=== PATIENT | female | born 1940 | race Caucasian/White ===

== ENCOUNTER 2017-06-23 17:15 | Emergency (ER) | payer MEDICARE, OTHER ==
--- NOTE | 2017-06-23 19:00 | PCM.SN ---
- Free Text/Narrative Note: Called for difficult IV start/lab draw. 20 Ga IV attempted in left AC, unsuccessful. 22 Ga IV inserted in right forearm with standard procedure x1 attempt, good blood return, flushed with ease 10 ml. Blood taken off IV for lab. IV secured with tegaderm/tape.
--- NOTE | 2017-06-23 20:47 | EDM.PDOC ---
ED HPI GENERAL MEDICAL PROBLEM - General Chief Complaint: Abdominal Pain Stated Complaint: [facility] Time Seen by Provider: 06/23/17 17:45 Source of Information: Reports: Family (daughter) History Limitations: Reports: Altered Mental Status (lethargic) - History of Present Illness INITIAL COMMENTS - FREE TEXT/NARRATIVE: Radha is a 77yo female brought to ED for altered mental status. Patient's daughter gives all history as patient is lethargic and obtunded. Patient came to see her daughter- flew from [place] where she lived on Saturday , 06/21/17, 2 days ago so her daughter could help take care of her. 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 Daughter thinks "ammonia levels are too high". She has "been in a coma before" when her ammonia levels were high. She has been giving her lactulose 30mg 3 times daily since arrival to [place] 2 days ago. She is having loose stools. Family is unsure of last ammonia level or last lab values prior to leaving [place]. She is not eating, she is only drinking gatorade and pedialyte. She is very weak according to her daughter. Prior to coming to [place] she was ambulatory with walker. She was 1-2 assist the day she arrived, now the last day her family has been carrying her to bathroom and for mobility as she is unable to stand or walk. Daughter denies that patient has had f/c/s. No worsening of usual abdominal distention or pain. She has loose stools, suspected from lactulose. No cough, wheezing, SOB or c/o CP. Daughter is sole anchorman now that she has arrived in [place]. Daughter reports she has had hx of TIPS procedure for liver disease. She was previously seeing GI in [place]. Daughter is unsure of the last time she has seen GI. She does not have a PCP established here in [place]. Onset: Gradual Duration: Day(s): (2) Associated Symptoms: Reports: Confusion, Loss of Appetite, Weakness. Denies: Chest Pain, Cough, Fever/Chills, Nausea/Vomiting, Shortness of Breath Left Abdomen Pain Score (Numeric/FACES): 6 - Related Data Allergies Allergy/AdvReac Type Severity Reaction Status Date / Time levofloxacin [From Levaquin] Allergy Anaphylactic Verified 06/23/17 17:20 Shock Home Meds: Home Meds Cephalexin 250 mg PO DAILY 06/23/17 [History] Ergocalciferol (Vitamin D2) [Vitamin D2] 50,000 unit PO WEEKLY 06/23/17 [History ] Furosemide 20 mg PO DAILY 06/23/17 [History] Lactulose 20 gm PO BID 06/23/17 [History] Levothyroxine 25 mcg PO DAILY 06/23/17 [History] Levothyroxine 25 mcg PO DAILY 06/23/17 [History] Magnesium 250 mg PO DAILY 06/23/17 [History] Pantoprazole Sodium 40 mg PO DAILY 06/23/17 [History] Ranitidine HCl [Ranitidine] 300 mg PO BID 06/23/17 [History] Rifaximin [Xifaxan] 550 mg PO BID 06/23/17 [History] Sucralfate [Carafate] 1 gm PO BID 06/23/17 [History] Ursodiol 250 mg PO DAILY 06/23/17 [History] Ursodiol 500 mg PO DAILY 06/23/17 [History] Past Medical History HEENT History: Reports: Impaired Vision Cardiovascular History: Reports: CAD, Heart Failure, Hypertension, Pacemaker Gastrointestinal History: Reports: Cirrhosis, Gastritis, GI Bleed 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: Psychiatric History: Reports: Depression Endocrine/Metabolic History: Reports: Diabetes, Type II Hematologic History: Reports: Anesthesia Reaction, Blood Transfusion(s) Other Hematologic History: Doesnt wake up from anesthesia - Infectious Disease History Infectious Disease History: Reports: Hepatitis C Social & Family History - Tobacco Use Smoking Status *Q: Never Smoker Second Hand Smoke Exposure: No - Caffeine Use Caffeine Use: Reports: None - Recreational Drug Use Recreational Drug Use: No ED ROS GENERAL - Review of Systems Review Of Systems: See Below Constitutional: Reports: Weakness, Fatigue, Decreased Appetite Free Text/Narrative/Comment: unable to obtain as patient is lethargic/obtuned. ED EXAM, GI/ABD - Physical Exam Exam: See Below Exam Limited By: Language Barrier (speaks niuean) General Appearance: Obtunded Eyes: Bilateral: EOMI (minimal to no scleral icterus) Ears: Normal External Exam Nose: Normal Inspection Throat/Mouth: Other (dry mucous membranes) Head: Atraumatic, Normocephalic Neck: Normal Inspection, Other (JVD with palpation of liver and RUQ) Respiratory/Chest: No Respiratory Distress, Lungs Clear, Normal Breath Sounds, Decreased Breath Sounds (bases bilat) Cardiovascular: Normal Peripheral Pulses (2+ pedal pulses bilat), Regular Rate, Rhythm GI/Abdominal Exam: Soft, Distended, Tender (mild diffuse), Hepatomegaly, Splenomegaly. No: Guarding, Rigid, Rebound (Female) Exam: Deferred Rectal (Female) Exam: Deferred Back Exam: Normal Inspection Extremities: Normal Capillary Refill, Pedal Edema (trace to 1+) Neurological: Confused, Disoriented, Slow to Respond Skin Exam: Warm, Dry, Intact EKG INTERPRETATION EKG Date: 06/23/17 (atrial rhythm, ventricular paced) Rate (Beats/Min): 78 Course - Vital Signs Last Recorded V/S: Last Vital Signs Temp 98.6 F 06/23/17 17:21 Pulse 73 06/23/17 17:21 Resp 18 06/23/17 17:21 BP 136/81 06/23/17 17:21 Pulse Ox 99 06/23/17 17:21 - Orders/Labs/Meds Orders: Active Orders 24 hr Category Date Time Status EKG Documentation Completion [RC] STAT Care 06/23/17 18:01 Active Chest 1V Frontal [CR] Routine Exams 06/23/17 18:01 Taken Head wo Cont [CT] Stat Exams 06/23/17 20:26 Taken CULTURE URINE [RM] Routine Lab 06/23/17 18:20 Received Dextrose 5%-0.9% NaCl [Dextrose 5%-Normal Saline] 1,000 Med 06/23/17 22:15 Active ml IV ASDIRECTED Medication Orders Dextrose/Sodium Chloride (Dextrose 5%-Normal Saline) 1,000 mls @ 100 mls/hr IV ASDIRECTED CHRISTIE Last Admin: 06/23/17 22:12 Dose: 100 mls/hr Labs: Laboratory Tests 06/23/17 06/23/17 06/23/17 Range/Units 18:20 18:47 18:47 WBC 2.41 L* (3.98-10.04) K/mm3 RBC 4.18 (3.98-5.22) M/mm3 Hgb 10.6 L (11.2-15.7) gm/L Hct 33.6 L (34.1-44.9) % MCV 80.4 (79.4-94.8) fl MCH 25.4 L (25.6-32.2) pg MCHC 31.5 L (32.2-35.5) g/dl RDW Std Deviation 62.4 H (36.4-46.3) fL Plt Count 74 L (182-369) K/mm3 Neut % (Auto) 39.1 (34.0-71.1) % Lymph % (Auto) 39.8 (19.3-51.7) % Cloud % (Auto) 14.9 H (4.7-12.5) % Eos % (Auto) 4.6 (0.7-5.8) Baso % (Auto) 1.2 (0.1-1.2) % Neut # (Auto) 0.94 L (1.56-6.13) K/mm3 Lymph # (Auto) 0.96 L (1.18-3.74) K/mm3 Cloud # (Auto) 0.36 (0.24-0.36) K/mm3 Eos # (Auto) 0.11 (0.04-0.36) K/mm3 Baso # (Auto) 0.03 (0.01-0.08) K/mm3 Manual Slide Review Abnormal smear Sodium 145 (136-145) mEq/L Potassium 4.4 (3.5-5.1) mEq/L Chloride 110 H (98-107) mEq/L Carbon Dioxide 22 (21-32) mEq/L Anion Gap 17.4 H (5-15) BUN 11 (7-18) mg/dL Creatinine 1.1 H (0.55-1.02) mg/dL Est Cr Clr Drug Dosing 30.28 mL/min Estimated GFR (MDRD) 48 (>60) mL/min BUN/Creatinine Ratio 10.0 L (14-18) Glucose 115 (83-115) mg/dL Calcium 8.2 L (8.5-10.1) mg/dL Magnesium (1.8-2.4) mg/dl Total Bilirubin 1.4 H (0.2-1.0) mg/dL AST 56 H (15-37) U/L ALT 26 (14-59) U/L Alkaline Phosphatase 158 H (46-116) U/L Ammonia (11-32) umol/L CK-MB (CK-2) (0-3.6) ng/ml Troponin I 0.175 H* (0.00-0.056) ng/mL C-Reactive Protein < 0.2 (<1.0) mg/dL Total Protein 6.5 (6.4-8.2) g/dl Albumin 2.6 L (3.4-5.0) g/dl Globulin 3.9 gm/dL Albumin/Globulin Ratio 0.7 L (1-2) Urine Color Yellow (Yellow) Urine Appearance Clear (Clear) Urine pH 7.0 (5.0-8.0) Ur Specific [place] 1.015 (1.005-1.030) Urine Protein Negative (Negative) Urine Glucose (UA) Negative (Negative) Urine Ketones Negative (Negative) Urine Occult Blood Negative (Negative) Urine Nitrite Negative (Negative) Urine Bilirubin Negative (Negative) Urine Urobilinogen 0.2 (0.2-1.0) Ur Leukocyte Esterase Negative (Negative) Urine RBC 0-5 (0-5) /hpf Urine WBC 0-5 (0-5) /hpf Ur Epithelial Cells 0-5 (0-5) /hpf Urine Bacteria Many H (FEW) /hpf Urine Mucus Few (FEW) /hpf 06/23/17 06/23/17 Range/Units 18:47 18:47 WBC (3.98-10.04) K/mm3 RBC (3.98-5.22) M/mm3 Hgb (11.2-15.7) gm/L Hct (34.1-44.9) % MCV (79.4-94.8) fl MCH (25.6-32.2) pg MCHC (32.2-35.5) g/dl RDW Std Deviation (36.4-46.3) fL Plt Count (182-369) K/mm3 Neut % (Auto) (34.0-71.1) % Lymph % (Auto) (19.3-51.7) % Cloud % (Auto) (4.7-12.5) % Eos % (Auto) (0.7-5.8) Baso % (Auto) (0.1-1.2) % Neut # (Auto) (1.56-6.13) K/mm3 Lymph # (Auto) (1.18-3.74) K/mm3 Cloud # (Auto) (0.24-0.36) K/mm3 Eos # (Auto) (0.04-0.36) K/mm3 Baso # (Auto) (0.01-0.08) K/mm3 Manual Slide Review Sodium (136-145) mEq/L Potassium (3.5-5.1) mEq/L Chloride (98-107) mEq/L Carbon Dioxide (21-32) mEq/L Anion Gap (5-15) BUN (7-18) mg/dL Creatinine (0.55-1.02) mg/dL Est Cr Clr Drug Dosing mL/min Estimated GFR (MDRD) (>60) mL/min BUN/Creatinine Ratio (14-18) Glucose (83-115) mg/dL Calcium (8.5-10.1) mg/dL Magnesium 1.8 (1.8-2.4) mg/dl Total Bilirubin (0.2-1.0) mg/dL AST (15-37) U/L ALT (14-59) U/L Alkaline Phosphatase (46-116) U/L Ammonia 47 H (11-32) umol/L CK-MB (CK-2) 0.7 (0-3.6) ng/ml Troponin I (0.00-0.056) ng/mL C-Reactive Protein (<1.0) mg/dL Total Protein (6.4-8.2) g/dl Albumin (3.4-5.0) g/dl Globulin gm/dL Albumin/Globulin Ratio (1-2) Urine Color (Yellow) Urine Appearance (Clear) Urine pH (5.0-8.0) Ur Specific [place] (1.005-1.030) Urine Protein (Negative) Urine Glucose (UA) (Negative) Urine Ketones (Negative) Urine Occult Blood (Negative) Urine Nitrite (Negative) Urine Bilirubin (Negative) Urine Urobilinogen (0.2-1.0) Ur Leukocyte Esterase (Negative) Urine RBC (0-5) /hpf Urine WBC (0-5) /hpf Ur Epithelial Cells (0-5) /hpf Urine Bacteria (FEW) /hpf Urine Mucus (FEW) /hpf Meds: Medications Generic Name Dose Route Start Last Admin Trade Name Freq PRN Reason Stop Dose Admin Dextrose/Sodium Chloride 1,000 mls @ 100 mls/hr 06/23/17 22:15 06/23/17 22:12 Dextrose 5%-Normal Saline IV 100 mls/hr ASDIRECTED CHRISTIE Administration - Radiology Interpretation Free Text/Narrative:: CXR obtained: no acute findings by my wet read. Head CT without contrast ordered and pending. Labs reviewed. Pancytopenic with WBC of 2.4, hgb 10.6 and plt of 74. CMP/LFT's reviewed. Ammonia elevated in the 47 Influenza screen ordered. Troponin elevated at 0.175, normal or negative CKMB. UA is negative. - Re-Assessments/Exams Free Text/Narrative Re-Assessment/Exam: 06/23/17 22:14 Patient continues to be resting comfortably with family in room. Update them on on lab values. Negative head CT. Call placed to Dr. Paulino re admission. She feels patient needs to be transferred to [place] for GI/Hepatology consult, no availablility of platelets here, MRI to r/o CVA. 06/23/17 22:26 Call placed to [facility] in [place], talked with Hospitalist, Dr. Murillo who is in agreement to accept patient for direct admit. Will arrange ambulance transfer. Departure - Departure Time of Disposition: 22:32 Disposition: DC/Tfer to Acute Hospital 02 Condition: Poor Clinical Impression: Pancytopenia Altered mental status Qualifiers: Altered mental status type: stupor Qualified Code(s): R40.1 - Stupor Cirrhosis Qualifiers: Hepatic cirrhosis type: unspecified hepatic cirrhosis Ascites presence: with ascites Qualified Code(s): K74.60 - Unspecified cirrhosis of liver - Discharge Information Referrals: PCP,None [Primary Care Provider] - Forms: ED Department Discharge - My Orders Last 24 Hours: My Active Orders 06/23/17 18:01 EKG Documentation Completion [RC] STAT Chest 1V Frontal [CR] Routine 06/23/17 18:20 CULTURE URINE [RM] Routine 06/23/17 20:26 Head wo Cont [CT] Stat 06/23/17 22:15 Dextrose 5%-0.9% NaCl [Dextrose 5%-Normal Saline] 1,000 ml IV ASDIRECTED - Assessment/Plan Last 24 Hours: My Active Orders 06/23/17 18:01 EKG Documentation Completion [RC] STAT Chest 1V Frontal [CR] Routine 06/23/17 18:20 CULTURE URINE [RM] Routine 06/23/17 20:26 Head wo Cont [CT] Stat 06/23/17 22:15 Dextrose 5%-0.9% NaCl [Dextrose 5%-Normal Saline] 1,000 ml IV ASDIRECTED
[2017-06-23] MEDS ORDERED: Dextrose 5%-0.9% NaCl 1,000 ML IV SCH (22:15)
--- NOTE | 2017-06-24 07:35 | CR ---
Chest: Portable view of the chest is obtained. Comparison: No prior study. Heart size is normal in size for portable technique. Tortuous thoracic aorta is seen. Pacemaker is present. Lungs are clear. Bony structures are grossly intact. Stent is seen overlying the liver most likely representing a stent for TIPS procedure. Impression: 1. Incidental findings. Nothing acute is seen on portable chest x-ray. Diagnostic code #2
--- NOTE | 2017-06-24 08:27 | CT ---
Head CT Technique: Multiple axial sections through the brain were obtained. Intravenous contrast was not utilized. Comparison: No prior intracranial imaging. Findings: Ventricles along with basal cisterns and sulci over the convexities are mildly prominent. Minimal areas of diminished density are noted within the periventricular white matter compatible with small vessel ischemic demyelination change. No other abnormal parenchymal densities are seen. No evidence of intracranial hemorrhage. No midline shift or mass effect is seen. Bone window settings were reviewed which show no acute calvarial abnormality. Visualized sinuses are clear. Impression: 1. Slight senescent change. 2. No acute intracranial abnormality is identified. Diagnostic code #2 I agree with preliminary report issued by [facility] ([facility] preliminary report dictated on 06/23/17, 10:00 PM Central Time)
== END 2017-06-23 23:05 ==
LOC: JD.ED 17:15
DX: K74.60 Unspecified cirrhosis of liver (principal); D61.818 Other pancytopenia; E11.9 Type 2 diabetes mellitus without complications; I11.0 Hypertensive heart disease with heart failure; I50.9 Heart failure, unspecified; Z79.899 Other long term (current) drug therapy; Z88.1 Allergy status to other antibiotic agents
CPT/HCPCS: 36415; 70450; 71045; 80053; 81001; 82140; 82553; 83735; 84484; 85025; 86140; 87086; 87804; 93005; 96360; 99285; J7042; P9612; 87088; 87186; 93010

== ENCOUNTER 2017-08-02 13:12 | Emergency (ER) | payer MEDICARE ==
[2017-08-02] MEDS ORDERED: Sodium Chloride 0.9% 10 ML Syringe FLUSH PRN (13:18)
[2017-08-02] MEDS ORDERED: Sodium Chloride 0.9% 1,000 ML IV SCH (13:30)
[2017-08-02] MEDS ORDERED: LORazepam 2 MG/ML SDV IVPUSH ONE (13:31)
--- NOTE | 2017-08-02 14:11 | CT ---
Head CT Technique: Multiple axial sections through the brain were obtained. Intravenous contrast was not utilized. Comparison: Prior head CT study of 06/23/17. Findings: Ventricles along with basal cisterns and sulci over the convexities are mildly prominent. Minimal basal ganglia calcification is seen. Minimal areas of diminished density are noted within the periventricular white matter which is compatible with small vessel ischemic demyelination change. No evidence of intracranial hemorrhage. No midline shift or mass effect is seen. Bone window settings were reviewed which shows the visualized sinuses to appear clear. No acute calvarial abnormality is seen. Sella turcica is slightly widened compatible with incidental empty sella. Impression: 1. Incidental findings. Nothing acute is appreciated on noncontrast head CT exam. No significant change is seen from previous study. Diagnostic code #2
[2017-08-02] MEDS ORDERED: Sodium Chloride 0.9% 500 ML IV ONE (15:00)
--- NOTE | 2017-08-02 15:45 | EDM.PDOC ---
ED HPI GENERAL MEDICAL PROBLEM - General Chief Complaint: Neurological Problem Stated Complaint: [facility] Time Seen by Provider: 08/02/17 13:18 Source of Information: Reports: Patient, EMS, Family History Limitations: Reports: Language Barrier - History of Present Illness INITIAL COMMENTS - FREE TEXT/NARRATIVE: The patient presents by [facility] for a seizure. She was at the mall and walking around and shopping. She felt weak and she sat down and she started to have a generalized seizure where she was rigid. She also vomited. The patient has a history of liver failure from hepatitis C from a transfusion in [place]. Her family just moved her up from [place] a few months ago. She has been taking her lactulose but she missed a dose today. Her family says she has been confused lately. She denies fever, chills, cough, congestion, runny nose, chest pain, shortness of breath, or abdominal pain. She does only speak Portuguese but her daughter and granddaughter are here and they speak good Armenian. She has never had a seizure before. Onset: Sudden Duration: Minutes: Location: Reports: Generalized Severity: Moderate Improves with: Reports: None Worsens with: Reports: None Context: Reports: Activity (She was walking around the mall) Associated Symptoms: Reports: Confusion, Nausea/Vomiting. Denies: Chest Pain, Cough, Fever/Chills, Headaches, Shortness of Breath - Related Data Allergies Allergy/AdvReac Type Severity Reaction Status Date / Time levofloxacin [From Levaquin] Allergy Anaphylactic Verified 08/02/17 13:15 Shock Home Meds: Home Meds Cephalexin 250 mg PO DAILY 06/23/17 [History] Ergocalciferol (Vitamin D2) [Vitamin D2] 50,000 unit PO WEEKLY 06/23/17 [History ] Furosemide 20 mg PO DAILY 06/23/17 [History] Lactulose 20 gm PO BID 06/23/17 [History] Levothyroxine 25 mcg PO DAILY 06/23/17 [History] Levothyroxine 25 mcg PO DAILY 06/23/17 [History] Magnesium 250 mg PO DAILY 06/23/17 [History] Pantoprazole Sodium 40 mg PO DAILY 06/23/17 [History] Ranitidine HCl [Ranitidine] 300 mg PO BID 06/23/17 [History] Rifaximin [Xifaxan] 550 mg PO BID 06/23/17 [History] Sucralfate [Carafate] 1 gm PO BID 06/23/17 [History] Ursodiol 250 mg PO DAILY 06/23/17 [History] Ursodiol 500 mg PO DAILY 06/23/17 [History] Past Medical History HEENT History: Reports: Impaired Vision Cardiovascular History: Reports: CAD, Heart Failure, Hypertension, Pacemaker Gastrointestinal History: Reports: Cirrhosis, Gastritis, 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: Psychiatric History: Reports: Depression Endocrine/Metabolic History: Reports: Diabetes, Type II Hematologic History: Reports: Anesthesia Reaction, Blood Transfusion(s) Other Hematologic History: Doesnt wake up from anesthesia - Infectious Disease History Infectious Disease History: Reports: Hepatitis C Social & Family History - Tobacco Use Smoking Status *Q: Never Smoker Second Hand Smoke Exposure: No - Caffeine Use Caffeine Use: Reports: None - Recreational Drug Use Recreational Drug Use: No ED ROS GENERAL - Review of Systems Review Of Systems: See Below Constitutional: Reports: No Symptoms HEENT: Reports: No Symptoms Respiratory: Reports: No Symptoms Cardiovascular: Reports: No Symptoms Endocrine: Reports: No Symptoms GI/Abdominal: Reports: Nausea, Vomiting. Denies: Abdominal Pain : Reports: No Symptoms Musculoskeletal: Reports: No Symptoms Skin: Reports: No Symptoms Neurological: Reports: Confusion - Physical Exam Exam: See Below Exam Limited By: No Limitations General Appearance: Alert, No Apparent Distress Ears: Normal External Exam Nose: Normal Inspection Head Exam: Atraumatic, Normocephalic Neck: Normal Inspection Respiratory/Chest: No Respiratory Distress, Lungs Clear, Normal Breath Sounds Cardiovascular: Regular Rate, Rhythm, No Edema, No Murmur GI/Abdominal: Soft, Non-Tender, No Organomegaly, No Mass Neuro Exam (Abbreviated): Alert, Oriented, No Motor/Sensory Deficits Course - Vital Signs Last Recorded V/S: Last Vital Signs Temp 96.7 F 08/02/17 13:15 Pulse 70 08/02/17 13:15 Resp 18 08/02/17 13:15 BP 98/62 08/02/17 13:15 Pulse Ox 100 08/02/17 13:15 - Orders/Labs/Meds Orders: Active Orders 24 hr Category Date Time Status Cardiac Monitoring [RC] . DIRECTED Care 08/02/17 13:18 Active Peripheral IV Care [RC] . DIRECTED Care 08/02/17 13:19 Active Sodium Chloride 0.9% [Normal Saline] 1,000 ml Med 08/02/17 13:30 Active IV ASDIRECTED Sodium Chloride 0.9% [Saline Flush] Med 08/02/17 13:18 Active 10 ml FLUSH ASDIRECTED PRN Peripheral IV Insertion Adult [OM.PC] Stat Oth 08/02/17 13:18 Ordered Medication Orders Sodium Chloride (Normal Saline) 1,000 mls @ 125 mls/hr IV ASDIRECTED CHRISTIE Last Admin: 08/02/17 13:26 Dose: 125 mls/hr Sodium Chloride (Saline Flush) 10 ml FLUSH ASDIRECTED PRN PRN Reason: Keep Vein Open Last Admin: 08/02/17 13:26 Dose: 10 ml Labs: Laboratory Tests 08/02/17 08/02/17 08/02/17 Range/Units 13:38 13:38 13:38 WBC 2.59 L (3.98-10.04) K/mm3 RBC 4.29 (3.98-5.22) M/mm3 Hgb 11.7 (11.2-15.7) gm/L Hct 36.9 (34.1-44.9) % MCV 86.0 (79.4-94.8) fl MCH 27.3 (25.6-32.2) pg MCHC 31.7 L (32.2-35.5) g/dl RDW Std Deviation 72.5 H (36.4-46.3) fL Plt Count 75 L (182-369) K/mm3 MPV TNP Neut % (Auto) 47.1 (34.0-71.1) % Lymph % (Auto) 32.4 (19.3-51.7) % [place] % (Auto) 14.7 H (4.7-12.5) % Eos % (Auto) 4.2 (0.7-5.8) Baso % (Auto) 1.2 (0.1-1.2) % Neut # (Auto) 1.22 L (1.56-6.13) K/mm3 Lymph # (Auto) 0.84 L (1.18-3.74) K/mm3 [place] # (Auto) 0.38 H (0.24-0.36) K/mm3 Eos # (Auto) 0.11 (0.04-0.36) K/mm3 Baso # (Auto) 0.03 (0.01-0.08) K/mm3 Manual Slide Review Abnormal smear Sodium 143 (136-145) mEq/L Potassium 3.4 L (3.5-5.1) mEq/L Chloride 109 H (98-107) mEq/L Carbon Dioxide 26 (21-32) mEq/L Anion Gap 11.4 (5-15) BUN 19 H (7-18) mg/dL Creatinine 1.4 H (0.55-1.02) mg/dL Est Cr Clr Drug Dosing 28.46 mL/min Estimated GFR (MDRD) 36 (>60) mL/min BUN/Creatinine Ratio 13.6 L (14-18) Glucose 170 H (83-115) mg/dL Calcium 9.5 (8.5-10.1) mg/dL Magnesium 2.1 (1.8-2.4) mg/dl Total Bilirubin 1.0 (0.2-1.0) mg/dL AST 33 (15-37) U/L ALT 19 (14-59) U/L Alkaline Phosphatase 181 H (46-116) U/L Ammonia 123 H (11-32) umol/L Total Protein 6.5 (6.4-8.2) g/dl Albumin 2.6 L (3.4-5.0) g/dl Globulin 3.9 gm/dL Albumin/Globulin Ratio 0.7 L (1-2) Meds: Medications Generic Name Dose Route Start Last Admin Trade Name Freq PRN Reason Stop Dose Admin Sodium Chloride 1,000 mls @ 125 mls/hr 08/02/17 13:30 08/02/17 13:26 Normal Saline IV 125 mls/hr ASDIRECTED CHRISTIE Administration Sodium Chloride 10 ml 08/02/17 13:18 08/02/17 13:26 Saline Flush FLUSH 10 ml ASDIRECTED PRN Administration Keep Vein Open Discontinued Medications Generic Name Dose Route Start Last Admin Trade Name Freq PRN Reason Stop Dose Admin Sodium Chloride 500 mls @ 999 mls/hr 08/02/17 15:00 Normal Saline IV 08/02/17 15:30 .BOLUS ONE Lorazepam 0.5 mg 08/02/17 13:31 08/02/17 13:39 Ativan IVPUSH 08/02/17 13:32 0.5 mg ONETIME ONE Administration - Re-Assessments/Exams Free Text/Narrative Re-Assessment/Exam: 08/02/17 16:04 I ordered an IV NS at 125mL/hr, ativan 1mg IV, labs, and a CT of her head. The CT of her head shows incidental findings. Nothing acute is appreciated on noncontrast head CT exam. No significant change is seen from previous study. 08/02/17 16:07 Her WBC is low at 2.59. Her platelets are low at 75. Her K is a little low at 3.4. Her creatinine is elevated at 1.4. Her glucose is elevated at 170. 08/02/17 16:10 Her Alk Phos is elevated at 181. Her AST was normal at 33. Her ALT was normal at 19. Her ammonia level was elevated at 123. The last time it was 45. I feel she needs to be admitted. I called Dr Paulino and she did not want to take her because of the seizure with the high ammonia level. I called [facility] and talked with Dr Armstrong and he agreed to the transfer. Departure - Departure Time of Disposition: 16:20 Disposition: DC/Tfer to [facility] 02 Condition: Serious Clinical Impression: Seizure, Thrombocytopenia, Hyperammonemia Altered mental status Qualifiers: Altered mental status type: stupor Qualified Code(s): R40.1 - Stupor Cirrhosis Qualifiers: Hepatic cirrhosis type: unspecified hepatic cirrhosis Ascites presence: with ascites Qualified Code(s): K74.60 - Unspecified cirrhosis of liver Hepatitis C Qualifiers: Viral hepatitis chronicity: chronic Hepatic coma status: without hepatic coma Qualified Code(s): B18.2 - Chronic viral hepatitis C Liver failure Qualifiers: Liver failure chronicity: chronic Hepatic coma status: without hepatic coma Qualified Code(s): K72.10 - Chronic hepatic failure without coma Anemia Qualifiers: Anemia type: unspecified type Qualified Code(s): D64.9 - Anemia, unspecified - Discharge Information Referrals: PCP,None [Primary Care Provider] - Forms: ED Department Discharge - My Orders Last 24 Hours: My Active Orders 08/02/17 13:18 Cardiac Monitoring [RC] . DIRECTED Sodium Chloride 0.9% [Saline Flush] 10 ml FLUSH ASDIRECTED PRN Peripheral IV Insertion Adult [OM.PC] Stat 08/02/17 13:19 Peripheral IV Care [RC] . DIRECTED 08/02/17 13:30 Sodium Chloride 0.9% [Normal Saline] 1,000 ml IV ASDIRECTED - Assessment/Plan Last 24 Hours: My Active Orders 08/02/17 13:18 Cardiac Monitoring [RC] . DIRECTED Sodium Chloride 0.9% [Saline Flush] 10 ml FLUSH ASDIRECTED PRN Peripheral IV Insertion Adult [OM.PC] Stat 08/02/17 13:19 Peripheral IV Care [RC] . DIRECTED 08/02/17 13:30 Sodium Chloride 0.9% [Normal Saline] 1,000 ml IV ASDIRECTED
== END 2017-08-02 17:00 ==
LOC: JD.ED 13:12
DX: R56.9 Unspecified convulsions (principal); D69.6 Thrombocytopenia, unspecified; E72.20 Disorder of urea cycle metabolism, unspecified; K72.10 Chronic hepatic failure without coma; K74.60 Unspecified cirrhosis of liver; B18.2 Chronic viral hepatitis C; D64.9 Anemia, unspecified; I11.0 Hypertensive heart disease with heart failure; I50.9 Heart failure, unspecified; I25.10 Atherosclerotic heart disease of native coronary artery without angina pectoris; E11.9 Type 2 diabetes mellitus without complications; F32.9 Major depressive disorder, single episode, unspecified; Z79.2 Long term (current) use of antibiotics; Z79.899 Other long term (current) drug therapy; Z88.1 Allergy status to other antibiotic agents
CPT/HCPCS: 36415; 70450; 80053; 82140; 83735; 85025; 96374; 99285; J2060; J7040; J7050

== ENCOUNTER 2017-08-14 04:11 | Emergency (ER) | payer MEDICARE, MEDICAID ==
--- NOTE | 2017-08-14 04:54 | EDM.PDOC ---
<Keshav Rodas - Last Filed: 08/14/17 08:12> ED HPI GENERAL MEDICAL PROBLEM - General Chief Complaint: General Stated Complaint: AMONIA LEVEL REALLY HIGH CONFUSED Time Seen by Provider: 08/14/17 04:54 - History of Present Illness INITIAL COMMENTS - FREE TEXT/NARRATIVE: 77-year-old female presents emergency room with increased confusion. Patient is brought in by her daughter with confusion noted early this morning. The patient was found walking around the house with no pants on and she tried to put 2 depends on. The patient usually demonstrates unusual behavior when ammonia is high. 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 The patient has not had any recent fevers or chills no cough no upper airway congestion and hasn't complained of any pain anywhere. - Related Data Allergies Allergy/AdvReac Type Severity Reaction Status Date / Time levofloxacin [From Levaquin] Allergy Anaphylactic Verified 08/14/17 04:21 Shock Home Meds: Home Meds Cephalexin 250 mg PO DAILY 06/23/17 [History] Ergocalciferol (Vitamin D2) [Vitamin D2] 50,000 unit PO WEEKLY 06/23/17 [History ] Furosemide 20 mg PO DAILY 06/23/17 [History] Lactulose 20 gm PO BID 06/23/17 [History] Levothyroxine 25 mcg PO DAILY 06/23/17 [History] Levothyroxine 25 mcg PO DAILY 06/23/17 [History] Magnesium 250 mg PO DAILY 06/23/17 [History] Pantoprazole Sodium 40 mg PO DAILY 06/23/17 [History] Ranitidine HCl [Ranitidine] 300 mg PO BID 06/23/17 [History] Rifaximin [Xifaxan] 550 mg PO BID 06/23/17 [History] Sucralfate [Carafate] 1 gm PO BID 06/23/17 [History] Ursodiol 250 mg PO DAILY 06/23/17 [History] Ursodiol 500 mg PO DAILY 06/23/17 [History] Past Medical History HEENT History: Reports: Impaired Vision Cardiovascular History: Reports: CAD, Heart Failure, Hypertension, Pacemaker Gastrointestinal History: Reports: Cirrhosis, Gastritis, GI Bleed [employer] History: Reports: Psychiatric History: Reports: Depression Endocrine/Metabolic History: Reports: Diabetes, Type II Hematologic History: Reports: Anesthesia Reaction, Blood Transfusion(s) Other Hematologic History: Doesnt wake up from anesthesia - Infectious Disease History Infectious Disease History: Reports: Hepatitis C Social & Family History - Tobacco Use Smoking Status *Q: Unknown Ever Smoked Second Hand Smoke Exposure: No - Caffeine Use Caffeine Use: Reports: None - Recreational Drug Use Recreational Drug Use: No ED ROS GENERAL - Review of Systems Review Of Systems: See Below Constitutional: Reports: No Symptoms HEENT: Reports: No Symptoms Respiratory: Reports: No Symptoms Cardiovascular: Reports: No Symptoms GI/Abdominal: Reports: No Symptoms : Reports: No Symptoms Musculoskeletal: Reports: No Symptoms Skin: Reports: No Symptoms Neurological: Reports: Confusion. Denies: Headache ED EXAM, GENERAL - Physical Exam Exam: See Below Exam Limited By: No Limitations General Appearance: Alert, No Apparent Distress, Other (The patient appears to be answering questions appropriately using her daughter as a supervisor curing room) Eye Exam: Bilateral Eye: Normal Inspection Ears: Normal External Exam, Normal Canal, Hearing Grossly Normal, Normal TMs Nose: Normal Inspection, Normal Mucosa, No Blood Throat/Mouth: Normal Inspection, Normal Gums, Normal Oropharynx, Normal Voice, No Airway Compromise Head: Atraumatic, Normocephalic Neck: Normal Inspection, Supple, Non-Tender, Full Range of Motion. No: Lymphadenopathy (L), Lymphadenopathy (R) Respiratory/Chest: No Respiratory Distress, Lungs Clear, Normal Breath Sounds Cardiovascular: Regular Rate, Rhythm, No Edema, No Murmur GI/Abdominal: Normal Bowel Sounds, Soft, Non-Tender, No Mass, Other (No obvious ascites). No: Distended, Guarding, Rigid, Rebound Back Exam: Normal Inspection. No: CVA Tenderness (L), CVA Tenderness (R) Extremities: Normal Inspection, No Pedal Edema Neurological: Alert Course - Vital Signs Last Recorded V/S: Last Vital Signs Temp 36.9 C 08/14/17 04:22 Pulse 73 08/14/17 04:22 Resp 18 08/14/17 04:22 BP 134/64 08/14/17 04:22 Pulse Ox 100 08/14/17 04:22 - Orders/Labs/Meds Orders: Active Orders 24 hr Category Date Time Status Head wo Cont [CT] Stat Exams 08/14/17 09:58 Taken Labs: Laboratory Tests 03/14/18 03/14/18 03/14/18 Range/Units 04:35 04:35 05:05 WBC 2.33 L* (3.98-10.04) K/mm3 RBC 3.93 L (3.98-5.22) M/mm3 Hgb 11.1 L (11.2-15.7) gm/L Hct 34.2 (34.1-44.9) % MCV 87.0 (79.4-94.8) fl MCH 28.2 (25.6-32.2) pg MCHC 32.5 (32.2-35.5) g/dl RDW Std Deviation 71.9 H (36.4-46.3) fL Plt Count 54 L (182-369) K/mm3 MPV 11.6 (9.4-12.3) fl Neutrophils % (Manual) 51 (40-60) % Band Neutrophils % 0 (0-10) % Lymphocytes % (Manual) 38 (20-40) % Atypical Lymphs % 0 % Monocytes % (Manual) 8 (2-10) % Eosinophils % (Manual) 3 (0.7-5.8) % Basophils % (Manual) 0 L (0.1-1.2) Platelet Estimate Decreased Plt Morphology Comment Normal Polychromasia 1+ slight Poikilocytosis 2+ moderate Anisocytosis 1+ slight Microcytosis 1+ slight Macrocytosis 1+ slight Tear Drop Cells 1+ slight Ovalocytes 1+ slight Schistocytes 1+ slight RBC Morph Comment Abnormal Sodium 143 (136-145) mEq/L Potassium 3.6 (3.5-5.1) mEq/L Chloride 111 H (98-107) mEq/L Carbon Dioxide 23 (21-32) mEq/L Anion Gap 12.6 (5-15) BUN 14 (7-18) mg/dL Creatinine 1.1 H (0.55-1.02) mg/dL Est Cr Clr Drug Dosing TNP Estimated GFR (MDRD) 48 (>60) mL/min BUN/Creatinine Ratio 12.7 L (14-18) Glucose 128 H (83-115) mg/dL Calcium 9.5 (8.5-10.1) mg/dL Total Bilirubin 1.2 H (0.2-1.0) mg/dL AST 31 (15-37) U/L ALT 17 (14-59) U/L Alkaline Phosphatase 200 H (46-116) U/L Ammonia 21 (11-32) umol/L Total Protein 6.4 (6.4-8.2) g/dl Albumin 2.6 L (3.4-5.0) g/dl Globulin 3.8 gm/dL Albumin/Globulin Ratio 0.7 L (1-2) Urine Color (Yellow) Urine Appearance (Clear) Urine pH (5.0-8.0) Ur Specific [place] (1.005-1.030) Urine Protein (Negative) Urine Glucose (UA) (Negative) Urine Ketones (Negative) Urine Occult Blood (Negative) Urine Nitrite (Negative) Urine Bilirubin (Negative) Urine Urobilinogen (0.2-1.0) Ur Leukocyte Esterase (Negative) Urine RBC (0-5) /hpf Urine WBC (0-5) /hpf Ur Epithelial Cells (0-5) /hpf Amorphous Sediment (NOT SEEN) /hpf Urine Bacteria (FEW) /hpf Urine Mucus (FEW) /hpf 08/14/17 Range/Units 08:13 WBC (3.98-10.04) K/mm3 RBC (3.98-5.22) M/mm3 Hgb (11.2-15.7) gm/L Hct (34.1-44.9) % MCV (79.4-94.8) fl MCH (25.6-32.2) pg MCHC (32.2-35.5) g/dl RDW Std Deviation (36.4-46.3) fL Plt Count (182-369) K/mm3 MPV (9.4-12.3) fl Neutrophils % (Manual) (40-60) % Band Neutrophils % (0-10) % Lymphocytes % (Manual) (20-40) % Atypical Lymphs % % Monocytes % (Manual) (2-10) % Eosinophils % (Manual) (0.7-5.8) % Basophils % (Manual) (0.1-1.2) Platelet Estimate Plt Morphology Comment Polychromasia Poikilocytosis Anisocytosis Microcytosis Macrocytosis Tear Drop Cells Ovalocytes Schistocytes RBC Morph Comment Sodium (136-145) mEq/L Potassium (3.5-5.1) mEq/L Chloride (98-107) mEq/L Carbon Dioxide (21-32) mEq/L Anion Gap (5-15) BUN (7-18) mg/dL Creatinine (0.55-1.02) mg/dL Est Cr Clr Drug Dosing Estimated GFR (MDRD) (>60) mL/min BUN/Creatinine Ratio (14-18) Glucose (83-115) mg/dL Calcium (8.5-10.1) mg/dL Total Bilirubin (0.2-1.0) mg/dL AST (15-37) U/L ALT (14-59) U/L Alkaline Phosphatase (46-116) U/L Ammonia (11-32) umol/L Total Protein (6.4-8.2) g/dl Albumin (3.4-5.0) g/dl Globulin gm/dL Albumin/Globulin Ratio (1-2) Urine Color Yellow (Yellow) Urine Appearance Clear (Clear) Urine pH 7.5 (5.0-8.0) Ur Specific [place] 1.015 (1.005-1.030) Urine Protein Negative (Negative) Urine Glucose (UA) Negative (Negative) Urine Ketones Negative (Negative) Urine Occult Blood Negative (Negative) Urine Nitrite Positive H (Negative) Urine Bilirubin Negative (Negative) Urine Urobilinogen 0.2 (0.2-1.0) Ur Leukocyte Esterase Negative (Negative) Urine RBC Not seen (0-5) /hpf Urine WBC 0-5 (0-5) /hpf Ur Epithelial Cells 0-5 (0-5) /hpf Amorphous Sediment Few H (NOT SEEN) /hpf Urine Bacteria Few (FEW) /hpf Urine Mucus Not seen (FEW) /hpf - Re-Assessments/Exams Free Text/Narrative Re-Assessment/Exam: 08/14/17 08:12 Laboratory evaluation including a ammonia level are unremarkable. We'll check a urinalysis see if this might be contributing to her symptoms she does not have fever or cough. If nothing else can be identified is suspect the cause of her unusual be behavior was related to perhaps sleepwalking or at night terror. 08/14/17 08:21 Change of shift this time further care and disposition per Dr. Vela Departure - Departure Disposition: Home, Self-Care 01 Clinical Impression: Confusion - Discharge Information Referrals: Nabila Valverde [Primary Care Provider] - Forms: ED Department Discharge Additional Instructions: 1. Follow up with Dr. Shelton as planned 2. Return to the ED for any new or worsening symptoms such as worsened confusion , weakness, fever, difficulty breathing, or any other concerning symptoms - My Orders Last 24 Hours: My Active Orders 08/14/17 09:58 Head wo Cont [CT] Stat - Assessment/Plan Last 24 Hours: My Active Orders 08/14/17 09:58 Head wo Cont [CT] Stat <Jamey Vela A - Last Filed: 08/14/17 10:31> Course - Re-Assessments/Exams Free Text/Narrative Re-Assessment/Exam: 08/14/17 10:29 Signed out to me pending UA. UA neg. Reexamined patient. Daughter concerned that she is still vaguely confused. She is however oriented to date/person/ place. States she feels fine. Denies fall, headache, chest pain, cough, fever, abd pain. Given no explanation for acute change, will further eval with CT head. On my read, CT head neg, awaiting radiology report. Daughter states patient seems to have been gradually improving and would like to go home. No definite explanation for this morning's confusion, but given benign exam, reassuring labs, and neg head CT will dc home. She already has an appointment to f/u with Dr. Shelton tomorrow. Departure - Departure Time of Disposition: 10:28
--- NOTE | 2017-08-14 10:36 | CT ---
Head CT Technique: Multiple axial sections through the brain were obtained. Intravenous contrast was not utilized. Comparison: Prior head CT exam of 08/02/17. Findings: Ventricles along the basal cisterns and sulci over the convexities are mildly prominent. Minimal areas of diminished density are noted within the periventricular white matter compatible with small vessel ischemic demyelination change. Minimal basal ganglia calcification is seen. No evidence of intracranial hemorrhage. No midline shift or mass effect is seen. Bone window settings were reviewed which shows no acute calvarial abnormality. Visualized sinuses are clear. Impression: 1. Senescent change as noted above. No acute intracranial abnormality is identified. No appreciable change is seen from prior head CT exam. Diagnostic code #2
== END 2017-08-14 10:46 | disposition home or self-care (01) ==
LOC: JD.ED 04:11
DX: R41.0 Disorientation, unspecified (principal); I11.0 Hypertensive heart disease with heart failure; I50.9 Heart failure, unspecified; E11.9 Type 2 diabetes mellitus without complications; I25.10 Atherosclerotic heart disease of native coronary artery without angina pectoris; Z79.899 Other long term (current) drug therapy; Z88.1 Allergy status to other antibiotic agents
CPT/HCPCS: 36415; 70450; 70450-26; 80053; 81001; 82140; 85025; 99284; 99285-25

== ENCOUNTER 2017-12-05 18:22 | Inpatient (IN) | payer MEDICARE, MEDICAID ==
[2017-12-05] MEDS ORDERED: Acetaminophen 325 MG Tab PO ONE (19:12)
--- NOTE | 2017-12-05 19:12 | EDM.PDOC ---
ED HPI GENERAL MEDICAL PROBLEM - General Chief Complaint: Genitourinary Problem Stated Complaint: [facility] Time Seen by Provider: 12/05/17 19:06 Source of Information: Reports: Patient History Limitations: Reports: No Limitations - History of Present Illness INITIAL COMMENTS - FREE TEXT/NARRATIVE: 77-year-old female of [place] descent presents to the ED with acute onset of fever chills and rigors. He started yesterday. Patient is nonweightbearing due to fracture left femur 2 months ago. Is wheelchair bound for the most part. She does not have a Talavera catheter in place since time of surgery. However since surgery she's had recurrent urinary tract infections. 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 Her oral intake has been extremely poor today. There's been no vomiting but she is nauseated. She has a chronic cough but it doesn't sound any worse or more productive than normal. History was obtained through interpreters and primarily a granddaughter. She they report that she was in [place] 2 weeks ago with sepsis from urinary tract origin. she has used her lactulose only once today. They vary the dosage from once to 4 times a day depending on her degree of constipation. He did eat a small meal about 2 hours ago with his stay down. Onset: Sudden Onset Date: 12/04/17 Onset Time: 12:00 Duration: Hour(s): Location: Reports: Generalized (Fever chills riders. Associated nausea without vomiting.) Quality: Reports: Ache Severity: Moderate Improves with: Reports: None (She is on oxycodone 5 mg every 8 hours for pain in her left femur. Apparently it's not uniting very well. Apparently the femur was rodded as part of the treatment plan.) Worsens with: Reports: None Context: Denies: Activity, Exercise, Lifting, Sick Contact, Trauma, Other Associated Symptoms: Reports: Cough, Fever/Chills, Headaches, Loss of Appetite, Malaise, Nausea/Vomiting, Shortness of Breath, Weakness. Denies: Confusion, Chest Pain, cough w sputum, Diaphoresis (With riders), Rash, Seizure, Syncope Treatments GREY PERCHER: Reports: Other (see below) (None.) Pelvic Pain Score (Numeric/FACES): 10 - Related Data Allergies Allergy/AdvReac Type Severity Reaction Status Date / Time levofloxacin [From Levaquin] Allergy Anaphylactic Verified 12/05/17 23:55 Shock Home Meds: Home Meds Cephalexin 250 mg PO DAILY 06/23/17 [History] Ergocalciferol (Vitamin D2) [Vitamin D2] 50,000 unit PO WEEKLY 06/23/17 [History ] Furosemide 20 mg PO DAILY 06/23/17 [History] Levothyroxine 25 mcg PO DAILY 06/23/17 [History] Magnesium 250 mg PO DAILY 06/23/17 [History] Pantoprazole Sodium 40 mg PO ACBREAKFAST 06/23/17 [History] Ranitidine HCl [Ranitidine] 300 mg PO BID 06/23/17 [History] Rifaximin [Xifaxan] 550 mg PO BID 06/23/17 [History] Sucralfate [Carafate] 1 gm PO QID PRN 06/23/17 [History] Ursodiol 250 mg PO BEDTIME 06/23/17 [History] Ursodiol 500 mg PO DAILY 06/23/17 [History] Lactulose [Constulose] 20 gm PO BID 12/05/17 [History] oxyCODONE 5 mg PO Q8HR PRN 12/05/17 [History] Past Medical History HEENT History: Reports: Impaired Vision Cardiovascular History: Reports: CAD, Heart Failure, Hypertension, Pacemaker Gastrointestinal History: Reports: Cirrhosis, Gastritis, GI Bleed Genitourinary History: Reports: UTI, 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: Psychiatric History: Reports: Depression Endocrine/Metabolic History: Reports: Diabetes, Type II Hematologic History: Reports: Anesthesia Reaction, Blood Transfusion(s) Other Hematologic History: Doesnt wake up from anesthesia - Infectious Disease History Infectious Disease History: Reports: Hepatitis C Social & Family History - Family History Family Medical History: Noncontributory - Tobacco Use Smoking Status *Q: Never Smoker - Caffeine Use Caffeine Use: Reports: None - Recreational Drug Use Recreational Drug Use: No - Living Situation & Occupation Living situation: Reports: Occupation: Retired ED ROS GENERAL - Review of Systems Review Of Systems: See Below Constitutional: Reports: Fever, Chills, Malaise, Weakness, Fatigue, Decreased Appetite, Weight Loss HEENT: Reports: Other (Having troubles with oral candidiasis.) Respiratory: Reports: Shortness of Breath, Cough. Denies: Sputum, Hemoptysis, Other Cardiovascular: Reports: Blood Pressure Problem, Lightheadedness, Other. Denies : Chest Pain, Claudication, Edema, Orthopnea (Usually runs a bit high.) Endocrine: Reports: Fatigue (She does not walk she is confined to wheelchair.) GI/Abdominal: Reports: Abdominal Pain, Anorexia, Decreased Appetite, Nausea. Denies: Hematemesis, Hematochezia, Vomiting : Reports: Dysuria, Frequency Musculoskeletal: Reports: Other (Chronic pain left femur after fracture 2 months ago.) Skin: Reports: No Symptoms Psychiatric: Reports: Confusion Hematologic/Lymphatic: Reports: No Symptoms Immunologic: Reports: No Symptoms ED EXAM, RENAL/ - Physical Exam Exam: See Below (Occasional confusion but for the most part she has been able to carry on a conversation with her family members) Exam Limited By: Other (She is very warm to palpation clinically 101) General Appearance: Lethargic, Moderate Distress (Lots of moaning and groaning.) Eye Exam: Bilateral Eye: Normal Inspection (Mild scleral icterus present.) Throat/Mouth: Other (Tongue is very parched and shrunken and erythematous. There is some suggestion of oral candidiasis although it may be dried saliva in the room her mouth and buccal mucosa.) Head: Atraumatic, Normocephalic Neck: Normal Inspection, Supple, Non-Tender, Full Range of Motion. No: Lymphadenopathy (L), Lymphadenopathy (R) Respiratory/Chest: No Respiratory Distress, Lungs Clear, Normal Breath Sounds, No Accessory Muscle Use, Chest Non-Tender, Other (Pacemaker left upper anterior chest.) Cardiovascular: Normal Peripheral Pulses, Regular Rate, Rhythm, No Edema, No Murmur, No Rub, Tachycardia (Resting heart rate of 1 12/m.) GI/Abdominal: Normal Bowel Sounds, Soft, Tender, Other (Tender right upper quadrant of the abdomen. Liver is not palpable. Is a well-healed midline surgical incision around the umbilicus and i towards the pubic symphysis. Apparently this was an exploratory for a and appendectomy. No fluid waves work and he can be detected on today's examination. ) Back Exam: CVA Tenderness (R), Decreased Range of Motion (Possibly mild tenderness in this area). No: CVA Tenderness (L) Extremities: Other (Previous rodding of her right femur done 2 months ago. Surgical wounds are healing adequately.). No: Pedal Edema Neurological: Alert, Oriented, Normal Cognition Psychiatric: Other Skin Exam: Warm, Dry (She appears ill. She is very warm to palpation), Intact, No Rash, Other (The several problems color to her skin.) EKG INTERPRETATION EKG Date: 12/05/17 Time: 19:37 Rhythm: Other Rate (Beats/Min): 100 Cogswell: LAD-Left Cogswell Deviation Course - Vital Signs Last Recorded V/S: Last Vital Signs Temp 36.2 C 12/06/17 03:14 Pulse 83 12/06/17 03:14 Resp 2 L 12/06/17 03:14 BP 111/41 L 12/06/17 03:14 Pulse Ox 97 12/06/17 03:14 - Orders/Labs/Meds Orders: Active Orders 24 hr Category Date Time Status EKG Documentation Completion [RC] STAT Care 12/05/17 19:13 Active Chest 1V Frontal [CR] Stat Exams 12/05/17 19:13 Taken CULTURE BLOOD [BC] Stat Lab 12/05/17 19:45 Received CULTURE BLOOD [BC] Stat Lab 12/05/17 20:00 Received CULTURE URINE [RM] Stat Lab 12/05/17 20:30 Received URINALYSIS W/MICROSCOPIC [UA W/MICROSCOPIC] [URIN] Stat Lab 12/05/17 20:30 Ordered Dextrose 5%-0.9% NaCl [Dextrose 5%-Normal Saline] 1,000 Med 12/05/17 19:15 Active ml IV ASDIRECTED Blood Culture x2 Reflex Set [OM.PC] Stat Oth 12/05/17 19:15 Ordered Medication Orders Enoxaparin Sodium (Lovenox) 30 mg SUBCUT Q24H CHRISTIE Dextrose/Sodium Chloride (Dextrose 5%-Normal Saline) 1,000 mls @ 150 mls/hr IV ASDIRECTED CHRISTIE Last Admin: 12/05/17 20:36 Dose: 150 mls/hr Sodium Chloride (Normal Saline) 1,000 mls @ 75 mls/hr IV ASDIRECTED CHRISTIE Last Admin: 12/06/17 06:53 Dose: 75 mls/hr Ceftriaxone Sodium 2 gm/ (Sodium Chloride) 100 mls @ 100 mls/hr IV ONETIME ONE Stop: 12/06/17 09:59 Ibuprofen (Motrin) 600 mg PO Q6H PRN PRN Reason: Pain/Fever Last Admin: 12/06/17 01:50 Dose: 600 mg Temazepam (Restoril) 7.5 mg PO BEDTIME PRN PRN Reason: Sleep Labs: Laboratory Tests 12/05/17 12/05/17 12/05/17 Range/Units 19:14 19:30 19:30 WBC 3.98 (3.98-10.04) K/mm3 RBC 3.76 L (3.98-5.22) M/mm3 Hgb 9.2 L (11.2-15.7) gm/L Hct 30.6 L (34.1-44.9) % MCV 81.4 (79.4-94.8) fl MCH 24.5 L (25.6-32.2) pg MCHC 30.1 L (32.2-35.5) g/dl RDW Std Deviation 57.4 H (36.4-46.3) fL Plt Count 81 L (182-369) K/mm3 MPV TNP Neutrophils % (Manual) 76 H (40-60) % Band Neutrophils % 0 (0-10) % Lymphocytes % (Manual) 20 (20-40) % Atypical Lymphs % 0 % Monocytes % (Manual) 3 (2-10) % Eosinophils % (Manual) 1 (0.7-5.8) % Basophils % (Manual) 0 L (0.1-1.2) Platelet Estimate Decreased Plt Morphology Comment Normal Hypochromasia 1+ slight Anisocytosis 1+ slight RBC Morph Comment Not Reportable ESR (0-20) mm/hr PT 15.1 H (9.5-12.1) SECONDS INR 1.39 APTT 31 (24-31) SECONDS Sodium (136-145) mEq/L Potassium (3.5-5.1) mEq/L Chloride (98-107) mEq/L Carbon Dioxide (21-32) mEq/L Anion Gap (5-15) BUN (7-18) mg/dL Creatinine (0.55-1.02) mg/dL Est Cr Clr Drug Dosing mL/min Estimated GFR (MDRD) (>60) mL/min BUN/Creatinine Ratio (14-18) Glucose (83-115) mg/dL Lactic Acid (0.4-2.0) mmol/L Calcium (8.5-10.1) mg/dL Magnesium (1.8-2.4) mg/dl Total Bilirubin (0.2-1.0) mg/dL AST (15-37) U/L ALT (14-59) U/L Alkaline Phosphatase (46-116) U/L Ammonia 21 (11-32) umol/L CK-MB (CK-2) (0-3.6) ng/ml Troponin I (0.00-0.056) ng/mL C-Reactive Protein (<1.0) mg/dL NT-Pro-B Natriuret Pep (0-450) pg/mL Total Protein (6.4-8.2) g/dl Albumin (3.4-5.0) g/dl Globulin gm/dL Albumin/Globulin Ratio (1-2) Urine Color (Yellow) Urine Appearance (Clear) Urine pH (5.0-8.0) Ur Specific Halls (1.005-1.030) Urine Protein (Negative) Urine Glucose (UA) (Negative) Urine Ketones (Negative) Urine Occult Blood (Negative) Urine Nitrite (Negative) Urine Bilirubin (Negative) Urine Urobilinogen (0.2-1.0) Ur Leukocyte Esterase (Negative) Urine RBC (0-5) /hpf Urine WBC (0-5) /hpf Ur Epithelial Cells (0-5) /hpf Calcium Oxalate Crystal (NONE) Urine Bacteria (FEW) /hpf Urine Mucus (FEW) /hpf 12/05/17 12/05/17 12/05/17 Range/Units 19:30 19:30 19:30 WBC (3.98-10.04) K/mm3 RBC (3.98-5.22) M/mm3 Hgb (11.2-15.7) gm/L Hct (34.1-44.9) % MCV (79.4-94.8) fl MCH (25.6-32.2) pg MCHC (32.2-35.5) g/dl RDW Std Deviation (36.4-46.3) fL Plt Count (182-369) K/mm3 MPV Neutrophils % (Manual) (40-60) % Band Neutrophils % (0-10) % Lymphocytes % (Manual) (20-40) % Atypical Lymphs % % Monocytes % (Manual) (2-10) % Eosinophils % (Manual) (0.7-5.8) % Basophils % (Manual) (0.1-1.2) Platelet Estimate Plt Morphology Comment Hypochromasia Anisocytosis RBC Morph Comment ESR 24 H (0-20) mm/hr PT (9.5-12.1) SECONDS INR APTT (24-31) SECONDS Sodium 139 (136-145) mEq/L Potassium 3.8 (3.5-5.1) mEq/L Chloride 107 (98-107) mEq/L Carbon Dioxide 25 (21-32) mEq/L Anion Gap 10.8 (5-15) BUN 9 (7-18) mg/dL Creatinine 1.2 H (0.55-1.02) mg/dL Est Cr Clr Drug Dosing 27.75 mL/min Estimated GFR (MDRD) 43 (>60) mL/min BUN/Creatinine Ratio 7.5 L (14-18) Glucose 164 H (83-115) mg/dL Lactic Acid 2.1 H (0.4-2.0) mmol/L Calcium 8.9 (8.5-10.1) mg/dL Magnesium 1.8 (1.8-2.4) mg/dl Total Bilirubin 1.1 H (0.2-1.0) mg/dL AST 33 (15-37) U/L ALT 19 (14-59) U/L Alkaline Phosphatase 219 H (46-116) U/L Ammonia (11-32) umol/L CK-MB (CK-2) (0-3.6) ng/ml Troponin I 0.135 H* (0.00-0.056) ng/mL C-Reactive Protein 1.5 H* (<1.0) mg/dL NT-Pro-B Natriuret Pep (0-450) pg/mL Total Protein 6.3 L (6.4-8.2) g/dl Albumin 2.3 L (3.4-5.0) g/dl Globulin 4.0 gm/dL Albumin/Globulin Ratio 0.6 L (1-2) Urine Color (Yellow) Urine Appearance (Clear) Urine pH (5.0-8.0) Ur Specific Halls (1.005-1.030) Urine Protein (Negative) Urine Glucose (UA) (Negative) Urine Ketones (Negative) Urine Occult Blood (Negative) Urine Nitrite (Negative) Urine Bilirubin (Negative) Urine Urobilinogen (0.2-1.0) Ur Leukocyte Esterase (Negative) Urine RBC (0-5) /hpf Urine WBC (0-5) /hpf Ur Epithelial Cells (0-5) /hpf Calcium Oxalate Crystal (NONE) Urine Bacteria (FEW) /hpf Urine Mucus (FEW) /hpf 12/05/17 12/05/17 12/05/17 Range/Units 19:30 19:30 20:30 WBC (3.98-10.04) K/mm3 RBC (3.98-5.22) M/mm3 Hgb (11.2-15.7) gm/L Hct (34.1-44.9) % MCV (79.4-94.8) fl MCH (25.6-32.2) pg MCHC (32.2-35.5) g/dl RDW Std Deviation (36.4-46.3) fL Plt Count (182-369) K/mm3 MPV Neutrophils % (Manual) (40-60) % Band Neutrophils % (0-10) % Lymphocytes % (Manual) (20-40) % Atypical Lymphs % % Monocytes % (Manual) (2-10) % Eosinophils % (Manual) (0.7-5.8) % Basophils % (Manual) (0.1-1.2) Platelet Estimate Plt Morphology Comment Hypochromasia Anisocytosis RBC Morph Comment ESR (0-20) mm/hr PT (9.5-12.1) SECONDS INR APTT (24-31) SECONDS Sodium (136-145) mEq/L Potassium (3.5-5.1) mEq/L Chloride (98-107) mEq/L Carbon Dioxide (21-32) mEq/L Anion Gap (5-15) BUN (7-18) mg/dL Creatinine (0.55-1.02) mg/dL Est Cr Clr Drug Dosing mL/min Estimated GFR (MDRD) (>60) mL/min BUN/Creatinine Ratio (14-18) Glucose (83-115) mg/dL Lactic Acid (0.4-2.0) mmol/L Calcium (8.5-10.1) mg/dL Magnesium (1.8-2.4) mg/dl Total Bilirubin (0.2-1.0) mg/dL AST (15-37) U/L ALT (14-59) U/L Alkaline Phosphatase (46-116) U/L Ammonia (11-32) umol/L CK-MB (CK-2) < 0.5 (0-3.6) ng/ml Troponin I (0.00-0.056) ng/mL C-Reactive Protein (<1.0) mg/dL NT-Pro-B Natriuret Pep 371 (0-450) pg/mL Total Protein (6.4-8.2) g/dl Albumin (3.4-5.0) g/dl Globulin gm/dL Albumin/Globulin Ratio (1-2) Urine Color Yellow (Yellow) Urine Appearance Clear (Clear) Urine pH 7.0 (5.0-8.0) Ur Specific Halls 1.020 (1.005-1.030) Urine Protein Negative (Negative) Urine Glucose (UA) Negative (Negative) Urine Ketones Trace H (Negative) Urine Occult Blood Trace-intact H (Negative) Urine Nitrite Negative (Negative) Urine Bilirubin Negative (Negative) Urine Urobilinogen 0.2 (0.2-1.0) Ur Leukocyte Esterase Trace H (Negative) Urine RBC 0-5 (0-5) /hpf Urine WBC 20-30 H (0-5) /hpf Ur Epithelial Cells 10-20 H (0-5) /hpf Calcium Oxalate Crystal Rare H (NONE) Urine Bacteria Many H (FEW) /hpf Urine Mucus Not seen (FEW) /hpf Meds: Medications Generic Name Dose Route Start Last Admin Trade Name Freq PRN Reason Stop Dose Admin Enoxaparin Sodium 30 mg 12/06/17 09:00 Lovenox SUBCUT Q24H CHRISTIE Dextrose/Sodium Chloride 1,000 mls @ 150 mls/hr 12/05/17 19:15 12/05/17 20:36 Dextrose 5%-Normal Saline IV 150 mls/hr ASDIRECTED CHRISTIE Administration Sodium Chloride 1,000 mls @ 75 mls/hr 12/06/17 00:15 12/06/17 06:53 Normal Saline IV 75 mls/hr ASDIRECTED CHRISTIE Administration Ceftriaxone Sodium 2 gm/ 100 mls @ 100 mls/hr 12/06/17 09:00 Sodium Chloride IV 12/06/17 09:59 ONETIME ONE Ibuprofen 600 mg 12/06/17 00:29 12/06/17 01:50 Motrin PO 600 mg Q6H PRN Administration Pain/Fever Temazepam 7.5 mg 12/06/17 00:31 Restoril PO BEDTIME PRN Sleep Discontinued Medications Generic Name Dose Route Start Last Admin Trade Name Star PRN Reason Stop Dose Admin Acetaminophen 650 mg 12/05/17 19:12 12/05/17 20:36 Tylenol PO 12/05/17 19:13 650 mg ONETIME ONE Administration Ceftriaxone Sodium 2 gm/ 100 mls @ 100 mls/hr 12/05/17 19:16 12/05/17 20:37 Sodium Chloride IV 12/05/17 20:15 100 mls/hr ONETIME ONE Administration - Radiology Interpretation Free Text/Narrative:: 77-year-old female [place] descent who speaks primarily Mexican was out to the ED by her daughter and granddaughters. She apparently fell in [facility] and fractured her left femur 2 months ago. Since then she has been wheelchair bound. She has developed recurrent urinary tract infection since that accident. She also has a history of cirrhosis of the liver diagnosed greater than 13 years ago. Cause is unknown but felt to be due to hepatitis C possibly from previous blood transfusions. She is therefore on lactulose usually 3 times daily. Currently she presents with fever chills and rigors that started yesterday. Associated nausea without vomiting. She has been prone to recurrent urinary tract infections. Examination shows a very fragile frail elderly lady who is deathly very warm to palpation. Lots of morning and groaning. She does not seem to understand [place] very well. She appears to be volume depleted. Tongue is shrunken and mouth is very dry. Plan septic workup to include urinalysis by catheterization and urine culture one view chest x-ray. Routine labs include blood cultures and serum ammonia. Lactic acid levels and serum magnesium. We will start IV at D5 normal saline at 150 mils per hour. Given Tylenol 650 mg once for fever relief. Family keeps Tylenol course to a minimum of less than 2 g per day due to cirrhosis. Will give Rocephin 2 g IV as soon as blood cultures and urine cultures have been obtained. - Re-Assessments/Exams Free Text/Narrative Re-Assessment/Exam: 12/05/17 20:20 chest x-ray reveals mild cardiomegaly. There is a diffuse vascular congestion pattern particularly in the right hilar area. No obvious pneumonia is evident. 12/05/17 20:43 Labs reveal a low white count at 3.98. Differential 76% neutrophils no bands. Hemoglobin is 9.2 with hematocrit of 30.6. Platelet count is 81,090 from cytopenia. PT is 15.1 with an INR of 1.39. I she is auto anticoagulated from cirrhosis. PTT is 31. Sodium is 3139 with a potassium of 3.8. Chloride is 107 with a bicarbonate 25. Anion gap is 10.8. BUNs 9 with a creatinine of 1.2. GFR is 43 i.e. stage III chronic kidney disease glucose is elevated at 164. Lactic acid slightly elevated at 2.1. Calcium was normal at 8.9. Magnesium is 1.8. Total bilirubin is 1.1 with an AST of 33 and ALT of 19. Alk phosphatase is mildly elevated at 219. Serum ammonia level is in the normal range at 21. Troponin I is elevated at 0.135. C-reactive protein is 1.5. Albumin fraction is very low at 2.3. BNP and urinalysis are pending.. Will add a CK-MB fraction to her orders. 12/05/17 20:44 Urinalysis is now available. Shows trace of occult blood. 20-30 WBCs per high-power field and 10-20 epithelial cells suggesting upper urinary tract infection. Many bacteria are noted. Urine culture has been ordered. BNP is elevated at 371. The BNP is only mildly elevated and I'm not sure counts for her current level of troponin. Therefore the possibility of a recent myocardial infarction is evident. 12/05/17 21:10 Discussed the findings with the family. Discussed CODE STATUS and they do not want anything aggressive done in terms of DO NOT RESUSCITATE DO NOT INTUBATE but do want antibiotics and medicines given. She is therefore a code level III. node CK-MB fraction is 0.5. I will discuss case with Dr. Paulino continuous mining operator hospitalist with a view to admission to the hospital. Departure - Departure Time of Disposition: 22:50 Disposition: Admitted As Inpatient 65 Condition: Serious Clinical Impression: Acute febrile illness, Upper urinary tract infection, Thrombocytopenia Cirrhosis of liver Qualifiers: Hepatic cirrhosis type: unspecified hepatic cirrhosis Ascites presence: with ascites Qualified Code(s): K74.60 - Unspecified cirrhosis of liver Anemia Qualifiers: Anemia type: unspecified type Qualified Code(s): D64.9 - Anemia, unspecified - Discharge Information - My Orders Last 24 Hours: My Active Orders 12/05/17 19:13 EKG Documentation Completion [RC] STAT Chest 1V Frontal [CR] Stat 12/05/17 19:15 Dextrose 5%-0.9% NaCl [Dextrose 5%-Normal Saline] 1,000 ml IV ASDIRECTED Blood Culture x2 Reflex Set [OM.PC] Stat 12/05/17 19:45 CULTURE BLOOD [BC] Stat 12/05/17 20:00 CULTURE BLOOD [BC] Stat 12/05/17 20:30 CULTURE URINE [RM] Stat URINALYSIS W/MICROSCOPIC [UA W/MICROSCOPIC] [URIN] Stat - Assessment/Plan Last 24 Hours: My Active Orders 12/05/17 19:13 EKG Documentation Completion [RC] STAT Chest 1V Frontal [CR] Stat 12/05/17 19:15 Dextrose 5%-0.9% NaCl [Dextrose 5%-Normal Saline] 1,000 ml IV ASDIRECTED Blood Culture x2 Reflex Set [OM.PC] Stat 12/05/17 19:45 CULTURE BLOOD [BC] Stat 12/05/17 20:00 CULTURE BLOOD [BC] Stat 12/05/17 20:30 CULTURE URINE [RM] Stat URINALYSIS W/MICROSCOPIC [UA W/MICROSCOPIC] [URIN] Stat
[2017-12-05] MEDS ORDERED: Dextrose 5%-0.9% NaCl 1,000 ML IV SCH (19:15)
[2017-12-05] MEDS ORDERED: cefTRIAXone 2 GM in Sodium Chloride 0.9% 100 ML IV ONE (19:16)
[2017-12-06] MEDS ORDERED: Temazepam 7.5 MG Cap PO PRN (00:31)
[2017-12-06] MEDS: Ibuprofen 600 MG Tab PO PRN ×4 (01:50→23:50)
[2017-12-06] MEDS: Sodium Chloride 0.9% 1,000 ML IV SCH ×2 (06:53→23:50)
--- NOTE | 2017-12-06 06:57 | PCM.HP ---
H&P History of Present Illness - General Date of Service: 12/06/17 Admit Problem/Dx: Admission Diagnosis/Problem Admission Diagnosis/Problem UTI, Urinary tract infectious disease Source of Information: Patient, Family (interpeting ), Old Records, Provider, RN , RN Notes Reviewed History Limitations: Reports: Language Barrier - History of Present Illness Initial Comments - Free Text/Narative: Radha Ramirez is a 77 yo female who primarily speaks Vietnamese who presents to our ED in the evening of 12/05/17 with complaints of fever, chills and rigors which started yesterday. She reportedly has a left femur fracture which occurred 2 months ago and is thus non-weight bearing and wheelchair bound for the most part. She does have a Talavera catheter in place since her fracture and has been prone to urinary tract infections ever since. 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 peripheral intake has been poor and she's been nauseated however she has not vomited. She has a chronic cough but it reportedly is not any worseor more productive than normal. History was obtained through interpreters and her granddaughter. She reportedly in [place] 2 weeks ago for sepsis from a urinary tract infection. Reportedly only used her lactulose once a day and she was instructed to take up to 4 times depending on her degree of constipation. She did eat a small meal prior to coming to the ED and that did stay down. in the ER template 100.3 Celsius. Pulse 110. Respirations 18. Blood pressure 1 4454. Pulse ox 100%. Labs were obtained: WBC is 3.98. RBC is low at 3.76. Hemoglobin low at 9.2. Hematocrit low at 30.6. She is normocytic. Platelets are low at 81,000. Neutrophils are elevated at 76%. There is no bandemia. PT is 15.1. INR is 1.39. APTT 31. Ammonia is 21. ESR is Sodium is 139. Potassium 3.8. Chloride 107. Carbon dioxide 25. Anion gap is good at 10.8. BUN is 9. Creatinine 1.2. EGFR is 43. Glucose is high at 164. Lactic acid is high at 2.1. Calcium is 8.9. Magnesium 1.8. Total bilirubin is high at 1.1. AST is 33, a LT is 19, alkaline phosphatase is high at 219. She was given Tylenol and started on Rocephin She was also started on D5NS at 100 mils an hour. Chest x-ray is obtained and interpreted by the ED provideras showing mild cardiomegaly. There is a diffuse vascular congestion pattern particularly the rightperihilar area. No obvious pneumonia is present. 12-lead EKG was obtained and shows a paced rhythm. She carries a history of CAD, heart failure, HTN, Pacemaker, Cirrhosis, Gastritis, GI bleeds, recurrent UTIs, Depression, Type II DM, anesthesia reactions, Hepatitis C. She was never a smoker. Her PCP is Dr. Valverde here at [facility]. Pelvic Pain Score (Numeric/FACES): 10 - Related Data Allergies/Adverse Reactions: Allergies Allergy/AdvReac Type Severity Reaction Status Date / Time levofloxacin [From Levaquin] Allergy Anaphylactic Verified 12/05/17 23:55 Shock Home Medications: Home Meds Cephalexin 250 mg PO DAILY 06/23/17 [History] Ergocalciferol (Vitamin D2) [Vitamin D2] 50,000 unit PO WEEKLY 06/23/17 [History ] Furosemide 20 mg PO DAILY 06/23/17 [History] Levothyroxine 25 mcg PO DAILY 06/23/17 [History] Magnesium 250 mg PO DAILY 06/23/17 [History] Pantoprazole Sodium 40 mg PO ACBREAKFAST 06/23/17 [History] Ranitidine HCl [Ranitidine] 300 mg PO BID 06/23/17 [History] Rifaximin [Xifaxan] 550 mg PO BID 06/23/17 [History] Sucralfate [Carafate] 1 gm PO QID PRN 06/23/17 [History] Ursodiol 250 mg PO BEDTIME 06/23/17 [History] Ursodiol 500 mg PO DAILY 06/23/17 [History] Lactulose [Constulose] 20 gm PO BID 12/05/17 [History] oxyCODONE 5 mg PO Q8HR PRN 12/05/17 [History] Past Medical History HEENT History: Reports: Impaired Vision Cardiovascular History: Reports: CAD, Heart Failure, Hypertension, Pacemaker Gastrointestinal History: Reports: Cirrhosis, Gastritis, GI Bleed Genitourinary History: Reports: UTI, 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: Psychiatric History: Reports: Depression Endocrine/Metabolic History: Reports: Diabetes, Type II Hematologic History: Reports: Anesthesia Reaction, Blood Transfusion(s) Other Hematologic History: Doesnt wake up from anesthesia - Infectious Disease History Infectious Disease History: Reports: Hepatitis C - Past Surgical History HEENT Surgical History: Reports: None Cardiovascular Surgical History: Reports: None GI Surgical History: Reports: None Female Surgical History: Reports: None Endocrine Surgical History: Reports: None Social & Family History - Family History Family Medical History: Noncontributory - Tobacco Use Smoking Status *Q: Never Smoker Second Hand Smoke Exposure: No - Caffeine Use Caffeine Use: Reports: None - Recreational Drug Use Recreational Drug Use: No - Living Situation & Occupation Living situation: Reports: Occupation: Retired H&P Review of Systems - Review of Systems: Review Of Systems: See Below General: Reports: Fever, Chills, Malaise, Weakness, Fatigue, Decreased Appetite , Weight Loss. Denies: Night Sweats HEENT: Reports: Other (has had issues with oral candidiasis recently ). Denies : Eye Pain, Sinus Congestion, Sore Throat Pulmonary: Denies: Shortness of Breath, Wheezing, Pleuritic Chest Pain, Cough, Sputum Cardiovascular: Reports: Blood Pressure Problem. Denies: Chest Pain, Palpitations, Dyspnea on Exertion, Orthopnea, Edema, Lightheadedness, Syncope Gastrointestinal: Reports: Abdominal Pain (pain in LLQ near area of hip fracture ). Denies: Constipation, Diarrhea, Nausea, Vomiting Genitourinary: Reports: No Symptoms Musculoskeletal: Reports: Leg Pain (Left femur fracture from 2 months prior - wheelchair-bound) Skin: Reports: No Symptoms Psychiatric: Reports: No Symptoms Neurological: Reports: No Symptoms Hematologic/Lymphatic: Reports: No Symptoms Immunologic: Reports: No Symptoms Review of Systems Comment:: Language line was utilized and patient had some difficulty adjusting to this. Overall her only pain was in the location of he hip fracture. 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 No: Mucosa Moist & [place] (somewhat dry ) Neck: Supple, Trachea Midline. No: JVD Lungs: Clear to Auscultation, Normal Respiratory Effort Cardiovascular: Regular Rate, Regular Rhythm, Other (Pacemaker in place in left chest ) GI/Abdominal Exam: Normal Bowel Sounds, Soft, No Distention, Tender (RUQ) (Female) Exam: Deferred Rectal (Female) Exam: Deferred Back Exam: Normal Inspection, Decreased Range of Motion Extremities: No Pedal Edema, Normal Capillary Refill, Leg Pain, Limited Range of Motion, Other (rods were placed in left femur 2 monts prior ) Peripheral Pulses: 2+: Radial (L), Radial (R), Posterior Tibial (L), Posterior Tibial (R), Dorsalis Pedis (L), Dorsalis Pedis (R) Skin: Warm, Dry, Intact Neurological: Cranial Nerves Intact (grossly ) Neuro Extensive - Mental Status: Alert, Oriented x3, Normal Mood/Affect, Normal Cognition Psychiatric: Alert, Normal Affect, Normal Mood - Patient Data Lab Results Last 24 hrs: Laboratory Results - last 24 hr 12/05/17 12/05/17 12/05/17 Range/Units 19:14 19:30 19:30 WBC 3.98 (3.98-10.04) K/mm3 RBC 3.76 L (3.98-5.22) M/mm3 Hgb 9.2 L (11.2-15.7) gm/L Hct 30.6 L (34.1-44.9) % MCV 81.4 (79.4-94.8) fl MCH 24.5 L (25.6-32.2) pg MCHC 30.1 L (32.2-35.5) g/dl RDW Std Deviation 57.4 H (36.4-46.3) fL Plt Count 81 L (182-369) K/mm3 MPV TNP Neutrophils % (Manual) 76 H (40-60) % Band Neutrophils % 0 (0-10) % Lymphocytes % (Manual) 20 (20-40) % Atypical Lymphs % 0 % Monocytes % (Manual) 3 (2-10) % Eosinophils % (Manual) 1 (0.7-5.8) % Basophils % (Manual) 0 L (0.1-1.2) Platelet Estimate Decreased Plt Morphology Comment Normal Hypochromasia 1+ slight Anisocytosis 1+ slight RBC Morph Comment Not Reportable ESR (0-20) mm/hr PT 15.1 H (9.5-12.1) SECONDS INR 1.39 APTT 31 (24-31) SECONDS Sodium (136-145) mEq/L Potassium (3.5-5.1) mEq/L Chloride (98-107) mEq/L Carbon Dioxide (21-32) mEq/L Anion Gap (5-15) BUN (7-18) mg/dL Creatinine (0.55-1.02) mg/dL Est Cr Clr Drug Dosing mL/min Estimated GFR (MDRD) (>60) mL/min BUN/Creatinine Ratio (14-18) Glucose (83-115) mg/dL Lactic Acid (0.4-2.0) mmol/L Calcium (8.5-10.1) mg/dL Magnesium (1.8-2.4) mg/dl Total Bilirubin (0.2-1.0) mg/dL AST (15-37) U/L ALT (14-59) U/L Alkaline Phosphatase (46-116) U/L Ammonia 21 (11-32) umol/L CK-MB (CK-2) (0-3.6) ng/ml Troponin I (0.00-0.056) ng/mL C-Reactive Protein (<1.0) mg/dL NT-Pro-B Natriuret Pep (0-450) pg/mL Total Protein (6.4-8.2) g/dl Albumin (3.4-5.0) g/dl Globulin gm/dL Albumin/Globulin Ratio (1-2) Urine Color (Yellow) Urine Appearance (Clear) Urine pH (5.0-8.0) Ur Specific [place] (1.005-1.030) Urine Protein (Negative) Urine Glucose (UA) (Negative) Urine Ketones (Negative) Urine Occult Blood (Negative) Urine Nitrite (Negative) Urine Bilirubin (Negative) Urine Urobilinogen (0.2-1.0) Ur Leukocyte Esterase (Negative) Urine RBC (0-5) /hpf Urine WBC (0-5) /hpf Ur Epithelial Cells (0-5) /hpf Calcium Oxalate Crystal (NONE) Urine Bacteria (FEW) /hpf Urine Mucus (FEW) /hpf 12/05/17 12/05/17 12/05/17 Range/Units 19:30 19:30 19:30 WBC (3.98-10.04) K/mm3 RBC (3.98-5.22) M/mm3 Hgb (11.2-15.7) gm/L Hct (34.1-44.9) % MCV (79.4-94.8) fl MCH (25.6-32.2) pg MCHC (32.2-35.5) g/dl RDW Std Deviation (36.4-46.3) fL Plt Count (182-369) K/mm3 MPV Neutrophils % (Manual) (40-60) % Band Neutrophils % (0-10) % Lymphocytes % (Manual) (20-40) % Atypical Lymphs % % Monocytes % (Manual) (2-10) % Eosinophils % (Manual) (0.7-5.8) % Basophils % (Manual) (0.1-1.2) Platelet Estimate Plt Morphology Comment Hypochromasia Anisocytosis RBC Morph Comment ESR 24 H (0-20) mm/hr PT (9.5-12.1) SECONDS INR APTT (24-31) SECONDS Sodium 139 (136-145) mEq/L Potassium 3.8 (3.5-5.1) mEq/L Chloride 107 (98-107) mEq/L Carbon Dioxide 25 (21-32) mEq/L Anion Gap 10.8 (5-15) BUN 9 (7-18) mg/dL Creatinine 1.2 H (0.55-1.02) mg/dL Est Cr Clr Drug Dosing 27.75 mL/min Estimated GFR (MDRD) 43 (>60) mL/min BUN/Creatinine Ratio 7.5 L (14-18) Glucose 164 H (83-115) mg/dL Lactic Acid 2.1 H (0.4-2.0) mmol/L Calcium 8.9 (8.5-10.1) mg/dL Magnesium 1.8 (1.8-2.4) mg/dl Total Bilirubin 1.1 H (0.2-1.0) mg/dL AST 33 (15-37) U/L ALT 19 (14-59) U/L Alkaline Phosphatase 219 H (46-116) U/L Ammonia (11-32) umol/L CK-MB (CK-2) (0-3.6) ng/ml Troponin I 0.135 H* (0.00-0.056) ng/mL C-Reactive Protein 1.5 H* (<1.0) mg/dL NT-Pro-B Natriuret Pep (0-450) pg/mL Total Protein 6.3 L (6.4-8.2) g/dl Albumin 2.3 L (3.4-5.0) g/dl Globulin 4.0 gm/dL Albumin/Globulin Ratio 0.6 L (1-2) Urine Color (Yellow) Urine Appearance (Clear) Urine pH (5.0-8.0) Ur Specific [place] (1.005-1.030) Urine Protein (Negative) Urine Glucose (UA) (Negative) Urine Ketones (Negative) Urine Occult Blood (Negative) Urine Nitrite (Negative) Urine Bilirubin (Negative) Urine Urobilinogen (0.2-1.0) Ur Leukocyte Esterase (Negative) Urine RBC (0-5) /hpf Urine WBC (0-5) /hpf Ur Epithelial Cells (0-5) /hpf Calcium Oxalate Crystal (NONE) Urine Bacteria (FEW) /hpf Urine Mucus (FEW) /hpf 12/05/17 12/05/17 12/05/17 Range/Units 19:30 19:30 20:30 WBC (3.98-10.04) K/mm3 RBC (3.98-5.22) M/mm3 Hgb (11.2-15.7) gm/L Hct (34.1-44.9) % MCV (79.4-94.8) fl MCH (25.6-32.2) pg MCHC (32.2-35.5) g/dl RDW Std Deviation (36.4-46.3) fL Plt Count (182-369) K/mm3 MPV Neutrophils % (Manual) (40-60) % Band Neutrophils % (0-10) % Lymphocytes % (Manual) (20-40) % Atypical Lymphs % % Monocytes % (Manual) (2-10) % Eosinophils % (Manual) (0.7-5.8) % Basophils % (Manual) (0.1-1.2) Platelet Estimate Plt Morphology Comment Hypochromasia Anisocytosis RBC Morph Comment ESR (0-20) mm/hr PT (9.5-12.1) SECONDS INR APTT (24-31) SECONDS Sodium (136-145) mEq/L Potassium (3.5-5.1) mEq/L Chloride (98-107) mEq/L Carbon Dioxide (21-32) mEq/L Anion Gap (5-15) BUN (7-18) mg/dL Creatinine (0.55-1.02) mg/dL Est Cr Clr Drug Dosing mL/min Estimated GFR (MDRD) (>60) mL/min BUN/Creatinine Ratio (14-18) Glucose (83-115) mg/dL Lactic Acid (0.4-2.0) mmol/L Calcium (8.5-10.1) mg/dL Magnesium (1.8-2.4) mg/dl Total Bilirubin (0.2-1.0) mg/dL AST (15-37) U/L ALT (14-59) U/L Alkaline Phosphatase (46-116) U/L Ammonia (11-32) umol/L CK-MB (CK-2) < 0.5 (0-3.6) ng/ml Troponin I (0.00-0.056) ng/mL C-Reactive Protein (<1.0) mg/dL NT-Pro-B Natriuret Pep 371 (0-450) pg/mL Total Protein (6.4-8.2) g/dl Albumin (3.4-5.0) g/dl Globulin gm/dL Albumin/Globulin Ratio (1-2) Urine Color Yellow (Yellow) Urine Appearance Clear (Clear) Urine pH 7.0 (5.0-8.0) Ur Specific [place] 1.020 (1.005-1.030) Urine Protein Negative (Negative) Urine Glucose (UA) Negative (Negative) Urine Ketones Trace H (Negative) Urine Occult Blood Trace-intact H (Negative) Urine Nitrite Negative (Negative) Urine Bilirubin Negative (Negative) Urine Urobilinogen 0.2 (0.2-1.0) Ur Leukocyte Esterase Trace H (Negative) Urine RBC 0-5 (0-5) /hpf Urine WBC 20-30 H (0-5) /hpf Ur Epithelial Cells 10-20 H (0-5) /hpf Calcium Oxalate Crystal Rare H (NONE) Urine Bacteria Many H (FEW) /hpf Urine Mucus Not seen (FEW) /hpf Result Diagrams: 12/06/17 13:24 12/06/17 06:10 - Problem List (1) Upper urinary tract infection SNOMED Code(s): 019385506 ICD Code: N39.0 - URINARY TRACT INFECTION, SITE NOT SPECIFIED Status: Acute Priority: High Current Visit: Yes (2) Acute febrile illness SNOMED Code(s): 553283606 ICD Code: R50.9 - FEVER, UNSPECIFIED Status: Acute Priority: High Current Visit: Yes (3) Anemia SNOMED Code(s): 322675800 ICD Code: D64.9 - ANEMIA, UNSPECIFIED Status: Acute Priority: High Current Visit: Yes Qualifiers: Anemia type: unspecified type Qualified Code(s): D64.9 - Anemia, unspecified (4) Cirrhosis SNOMED Code(s): 18423864 ICD Code: K74.60 - UNSPECIFIED CIRRHOSIS OF LIVER Status: Chronic Priority: High Current Visit: Yes Qualifiers: Hepatic cirrhosis type: unspecified hepatic cirrhosis Ascites presence: with ascites Qualified Code(s): K74.60 - Unspecified cirrhosis of liver; R18.8 - Other ascites (5) Hepatitis C SNOMED Code(s): 86702282 ICD Code: B19.20 - UNSPECIFIED VIRAL HEPATITIS C WITHOUT HEPATIC COMA Status: Chronic Priority: Medium Current Visit: Yes Qualifiers: Viral hepatitis chronicity: chronic Hepatic coma status: without hepatic coma Qualified Code(s): B18.2 - Chronic viral hepatitis C (6) Pancytopenia SNOMED Code(s): 419347367 ICD Code: D61.818 - OTHER PANCYTOPENIA Status: Chronic Priority: Medium Current Visit: Yes (7) History of hip fracture SNOMED Code(s): 844027446 ICD Code: Z87.81 - PERSONAL HISTORY OF (HEALED) TRAUMATIC FRACTURE Status: Chronic Priority: Medium Current Visit: Yes (8) Elevated troponin SNOMED Code(s): 327636686, 815777792, 626175698 ICD Code: R74.8 - ABNORMAL LEVELS OF OTHER SERUM ENZYMES Status: Chronic Priority: Medium Current Visit: Yes Problem List Initiated/Reviewed/Updated: Yes Orders Last 24hrs: Active Orders 24 hr Category Date Time Status Patient Status [ADT] Routine ADT 12/05/17 22:42 Active EKG Documentation Completion [RC] STAT Care 12/05/17 19:13 Active Consult to Case Management [CONS] Routine Cons 12/06/17 01:54 Active Clear Liquid Diet [DIET] Diet 12/06/17 Breakfast Active Chest 1V Frontal [CR] Stat Exams 12/05/17 19:13 Taken BMP [BASIC METABOLIC PANEL,BMP] [CHEM] Routine Lab 12/06/17 06:10 Received CBC WITH AUTO DIFF [HEME] Routine Lab 12/06/17 06:10 Received CRP [C-REACTIVE PROTEIN] [CHEM] Routine Lab 12/06/17 06:10 Received CULTURE BLOOD [BC] Stat Lab 12/05/17 19:45 Received CULTURE BLOOD [BC] Stat Lab 12/05/17 20:00 Received CULTURE URINE [RM] Stat Lab 12/05/17 20:30 Received LACTIC ACID [CHEM] Routine Lab 12/06/17 06:10 Received MG [MAGNESIUM] [CHEM] Routine Lab 12/06/17 06:10 Received TROPONIN I [CHEM] Routine Lab 12/06/17 06:10 Received URINALYSIS W/MICROSCOPIC [UA W/MICROSCOPIC] [URIN] Stat Lab 12/05/17 20:30 Ordered Dextrose 5%-0.9% NaCl [Dextrose 5%-Normal Saline] 1,000 Med 12/05/17 19:15 Active ml IV ASDIRECTED Enoxaparin [Lovenox] Med 12/06/17 09:00 Active 30 mg SUBCUT Q24H Ibuprofen [Motrin] Med 12/06/17 00:29 Active 600 mg PO Q6H PRN Sodium Chloride 0.9% [Normal Saline] 1,000 ml Med 12/06/17 00:15 Active IV ASDIRECTED Temazepam [Restoril] Med 12/06/17 00:31 Active 7.5 mg PO BEDTIME PRN cefTRIAXone [Rocephin] 2 gm Med 12/06/17 09:00 Active Sodium Chloride 0.9% [Normal Saline] 100 ml IV ONETIME Blood Culture x2 Reflex Set [OM.PC] Stat Oth 12/05/17 19:15 Ordered RENEE Hose [Antiembolic Hose] [OM.PC] Routine Oth 12/06/17 00:28 Ordered Medication Orders Enoxaparin Sodium (Lovenox) 30 mg SUBCUT Q24H [facility] Dextrose/Sodium Chloride (Dextrose 5%-Normal Saline) 1,000 mls @ 150 mls/hr IV ASDIRECTED [facility] Last Admin: 12/05/17 20:36 Dose: 150 mls/hr Sodium Chloride (Normal Saline) 1,000 mls @ 75 mls/hr IV ASDIRECTED [facility] Last Admin: 12/06/17 06:53 Dose: 75 mls/hr Ceftriaxone Sodium 2 gm/ (Sodium Chloride) 100 mls @ 100 mls/hr IV ONETIME ONE Stop: 12/06/17 09:59 Ibuprofen (Motrin) 600 mg PO Q6H PRN PRN Reason: Pain/Fever Last Admin: 12/06/17 01:50 Dose: 600 mg Temazepam (Restoril) 7.5 mg PO BEDTIME PRN PRN Reason: Sleep Assessment/Plan Comment:: I/P: Acute: UTI -Reports fever, chills, rigors for past day -Wheelchair bound since left femur fracture -Chronic indwelling urinary catheter -Rocephin started in ED - continue -IV fluids as ordered -UA shows trace ketones and occult blood, trace leukocyte esterase, 20-30 WBC , 10-20 epithelial cells, rare calcium oxalate crystal, many bacteria -Blood cultures - gram negative rods thus far -No leukocytosis -CRP 1.5-->1.2 -Lactic acid 2.1-->1.0 Elevated troponin, stable -Troponin 0.135-->0.138-->0.135 -CK-MB <0.5 -12-lead EKG shows paced rhythm -Denies chest pain or SOB -CXR shows Mild CHF and incidental findings -Was 0.175 on 06/23/17 at last ER visit -Appears to have chronic troponin leak Pancytopenia -Appears to be chronic condition from prior notes -Likely 2/2 chronic medical conditions -Monitor Chronic: CAD heart failure HTN Pacemaker Cirrhosis Gastritis GI bleeds Recurrent UTIs Depression Type II DM - A1C 5.5; will discontinue BS checks and novolog Anesthesia reaction Hepatitis C History of left hip fracture repaired with rods Plan: Admit to medical floor on telemetry Home medications as ordered PT/OT Routine AM labs CM/SW for discharge planning Other orders ad indicated above DVT prophylaxis: SCDs and TEDs - low platelets GI Prophylaxis: Pts. home PPI Code status: DNR/DNI; PCP: Dr. Valverde Updated daughter via telephone. She reports patient has history of Type II DM, however A1C is 5.5 and blood sugars have been stable. Family is reportedly refusing SNF placement. Due to he hip fracture and being wheelchair bound the patient would benefit from a hospital bed and standard wheelchair. She is unable to bear weight on her left leg due to the fracture and family reports the patient has had very severe reactions to anesthesia in the past which limit her ability for surgical fixation. Due to his her mobility is severely reduced. She has a very real risk of bedsores and needs frequent repositioning. She also has substantial pain from this condition. It is believed she can safely utilize the wheelchair which would increase her mobility. She will likely need these items for up to 6 months, or longer if her PCP deems necessary.
[2017-12-06] MEDS ORDERED: Sucralfate 1 GM Tab PO PRN (07:20)
[2017-12-06] MEDS ORDERED: Ondansetron 4 MG/2 ML SDV IV PRN (07:22)
[2017-12-06] MEDS ORDERED: Ondansetron 4 MG Tab.DIS PO PRN (07:22)
[2017-12-06] MEDS: Levothyroxine 25 MCG Tab PO SCH (07:32)
[2017-12-06] MEDS: Enoxaparin 30 MG/0.3 ML Syringe SUBCUT SCH ×2 (07:32→08:29)
[2017-12-06] MEDS: Rifaximin 550 MG Tab PO SCH ×2 (08:28→20:23)
[2017-12-06] MEDS: Lactulose Soln 10 GM/15 ML 30 ML UD Cup PO SCH ×2 (08:28→20:24)
[2017-12-06] MEDS: Pantoprazole 40 MG Tab.CR PO SCH (08:52)
[2017-12-06] MEDS ORDERED: LORazepam 2 MG/ML SDV IVPUSH PRN (08:55)
[2017-12-06] MEDS ORDERED: cefTRIAXone 2 GM in Sodium Chloride 0.9% 100 ML IV ONE (09:00)
--- NOTE | 2017-12-06 10:58 | CR ---
Chest: Portable view of the chest is obtained. Comparison: Prior chest x-ray of 06/23/17. Heart size slightly enlarged. Pulmonary vessels are mildly congested. Tortuous thoracic aorta is seen. Pacemaker is noted. Chronic rotator cuff tear is noted within the right shoulder. TIPS stent is noted. Embolization coils are seen. Impression: 1. Mild CHF believed to be present. 2. Other incidental findings as noted above. Diagnostic code #3
[2017-12-06] MEDS ORDERED: 50% Dextrose in Water 50 ML Syringe IVPUSH PRN (11:55)
[2017-12-06] MEDS ORDERED: Insulin Aspart 100 Units/ML 3 ML Pen SUBCUT SCH (17:00)
[2017-12-06] MEDS: oxyCODONE 5 MG Tab PO PRN (18:06)
[2017-12-06] MEDS: Gabapentin 100 MG Cap PO SCH (20:24)
[2017-12-07] MEDS: oxyCODONE 5 MG Tab PO PRN ×2 (02:13→14:15)
[2017-12-07] MEDS: Levothyroxine 25 MCG Tab PO SCH (06:15)
[2017-12-07] MEDS: Pantoprazole 40 MG Tab.CR PO SCH (06:15)
[2017-12-07] MEDS: Ibuprofen 600 MG Tab PO PRN ×3 (06:15→22:05)
[2017-12-07] MEDS: Rifaximin 550 MG Tab PO SCH ×2 (08:30→20:17)
[2017-12-07] MEDS: Lactulose Soln 10 GM/15 ML 30 ML UD Cup PO SCH ×2 (08:30→20:17)
[2017-12-07] MEDS: Gabapentin 100 MG Cap PO SCH ×2 (08:31→20:17)
[2017-12-07] MEDS: Saccharomyces Boulardii (Probiotic) 250 MG Cap PO SCH ×2 (08:33→20:17)
[2017-12-07] MEDS ORDERED: cefTRIAXone 2 GM in Sodium Chloride 0.9% 100 ML IV SCH (09:00)
[2017-12-07] MEDS ORDERED: Lactulose Soln 10 GM/15 ML 30 ML UD Cup PO ONE (11:16)
[2017-12-07] MEDS ORDERED: Furosemide 40 MG/4 ML VIAL IVPUSH SCH (11:30)
[2017-12-07] MEDS ORDERED: Sodium Chloride 0.9% 250 ML IV SCH (11:30)
[2017-12-07] MEDS ORDERED: Piperacillin/Tazobactam 4.5 GM in Sodium Chloride 0.9% 100 ML IV ONE (12:00)
[2017-12-07] MEDS: Sodium Chloride 0.9% 1,000 ML IV SCH (12:46)
--- NOTE | 2017-12-07 14:47 | PCM.PN ---
- General Info Date of Service: 12/07/17 Functional Status: Reports: Pain Controlled, Urinating - Review of Systems General: Reports: Weakness, Fatigue, Malaise HEENT: Reports: No Symptoms Pulmonary: Reports: No Symptoms Cardiovascular: Reports: No Symptoms Gastrointestinal: Reports: No Symptoms Genitourinary: Reports: No Symptoms Musculoskeletal: Reports: No Symptoms Skin: Reports: No Symptoms Neurological: Reports: No Symptoms Psychiatric: Reports: No Symptoms - Patient Data Vitals - Most Recent: Last Vital Signs Temp 36.6 C 12/07/17 14:10 Pulse 77 12/07/17 14:10 Resp 16 12/07/17 14:10 BP 98/54 L 12/07/17 14:10 Pulse Ox 97 12/07/17 11:24 Weight - Most Recent: 61.507 kg I&O - Last 24 Hours: Intake & Output 12/06/17 12/07/17 12/07/17 22:59 06:59 14:59 Intake Total 1420 1060 120 Balance 1420 1060 120 Lab Results Last 24 Hours: Laboratory Results - last 24 hr 12/06/17 12/06/17 12/06/17 Range/Units 13:24 13:24 13:24 WBC (3.98-10.04) K/mm3 RBC (3.98-5.22) M/mm3 Hgb (11.2-15.7) gm/L Hct (34.1-44.9) % MCV (79.4-94.8) fl MCH (25.6-32.2) pg MCHC (32.2-35.5) g/dl RDW Std Deviation (36.4-46.3) fL Plt Count (182-369) K/mm3 MPV (9.4-12.3) fl Neut % (Auto) (34.0-71.1) % Lymph % (Auto) (19.3-51.7) % [place] % (Auto) (4.7-12.5) % Eos % (Auto) (0.7-5.8) Baso % (Auto) (0.1-1.2) % Neut # (Auto) (1.56-6.13) K/mm3 Lymph # (Auto) (1.18-3.74) K/mm3 [place] # (Auto) (0.24-0.36) K/mm3 Eos # (Auto) (0.04-0.36) K/mm3 Baso # (Auto) (0.01-0.08) K/mm3 Manual Slide Review Abnormal smear Sodium (136-145) mEq/L Potassium (3.5-5.1) mEq/L Chloride (98-107) mEq/L Carbon Dioxide (21-32) mEq/L Anion Gap (5-15) BUN (7-18) mg/dL Creatinine (0.55-1.02) mg/dL Est Cr Clr Drug Dosing mL/min Estimated GFR (MDRD) (>60) mL/min BUN/Creatinine Ratio (14-18) Glucose (83-115) mg/dL Calcium (8.5-10.1) mg/dL Magnesium (1.8-2.4) mg/dl Total Bilirubin (0.2-1.0) mg/dL AST (15-37) U/L ALT (14-59) U/L Alkaline Phosphatase (46-116) U/L Ammonia (11-32) umol/L CK-MB (CK-2) 0.6 (0-3.6) ng/ml C-Reactive Protein (<1.0) mg/dL Total Protein (6.4-8.2) g/dl Albumin (3.4-5.0) g/dl Globulin gm/dL Albumin/Globulin Ratio (1-2) Blood Type O POSITIVE Gel Antibody Screen Negative Crossmatch See Detail 12/07/17 12/07/17 12/07/17 Range/Units 06:10 06:10 06:10 WBC 2.46 L* (3.98-10.04) K/mm3 RBC 3.02 L (3.98-5.22) M/mm3 Hgb 7.4 L (11.2-15.7) gm/L Hct 24.7 L (34.1-44.9) % MCV 81.8 (79.4-94.8) fl MCH 24.5 L (25.6-32.2) pg MCHC 30.0 L (32.2-35.5) g/dl RDW Std Deviation 58.2 H (36.4-46.3) fL Plt Count 63 L (182-369) K/mm3 MPV 11.3 (9.4-12.3) fl Neut % (Auto) 54.0 (34.0-71.1) % Lymph % (Auto) 24.0 (19.3-51.7) % [place] % (Auto) 17.1 H (4.7-12.5) % Eos % (Auto) 4.1 (0.7-5.8) Baso % (Auto) 0.4 (0.1-1.2) % Neut # (Auto) 1.33 L (1.56-6.13) K/mm3 Lymph # (Auto) 0.59 L (1.18-3.74) K/mm3 [place] # (Auto) 0.42 H (0.24-0.36) K/mm3 Eos # (Auto) 0.10 (0.04-0.36) K/mm3 Baso # (Auto) 0.01 (0.01-0.08) K/mm3 Manual Slide Review Abnormal smear Sodium 143 (136-145) mEq/L Potassium 4.0 (3.5-5.1) mEq/L Chloride 114 H (98-107) mEq/L Carbon Dioxide 23 (21-32) mEq/L Anion Gap 10.0 (5-15) BUN 13 (7-18) mg/dL Creatinine 1.0 (0.55-1.02) mg/dL Est Cr Clr Drug Dosing 33.30 mL/min Estimated GFR (MDRD) 54 (>60) mL/min BUN/Creatinine Ratio 13.0 L (14-18) Glucose 92 (83-115) mg/dL Calcium 8.1 L (8.5-10.1) mg/dL Magnesium 1.8 (1.8-2.4) mg/dl Total Bilirubin 0.7 (0.2-1.0) mg/dL AST 17 (15-37) U/L ALT 13 L (14-59) U/L Alkaline Phosphatase 149 H (46-116) U/L Ammonia 47 H (11-32) umol/L CK-MB (CK-2) (0-3.6) ng/ml C-Reactive Protein 2.4 H* (<1.0) mg/dL Total Protein 4.7 L (6.4-8.2) g/dl Albumin 1.6 L (3.4-5.0) g/dl Globulin 3.1 gm/dL Albumin/Globulin Ratio 0.5 L (1-2) Blood Type Gel Antibody Screen Crossmatch [place] Results Last 24 Hours: Microbiology 12/05/17 20:30 Urine Culture - Preliminary Urine, Catheterized Escherichia Coli Klebsiella Pneumoniae 12/05/17 20:00 Aerobic Blood Culture - Preliminary Blood - Venous - Lab Draw NO GROWTH AFTER 1 DAY Anaerobic Blood Culture - Final 12/05/17 19:45 Aerobic Blood Culture - Preliminary Blood - Venous NO GROWTH AFTER 1 DAY Anaerobic Blood Culture - Preliminary NO GROWTH AFTER 1 DAY Med Orders - Current: Current Medications Furosemide (Lasix) 40 mg IVPUSH ASDIRECTED [facility] Stop: 12/07/17 18:00 Gabapentin (Neurontin) 100 mg PO BID [facility] Last Admin: 12/07/17 08:31 Dose: 100 mg Sodium Chloride (Normal Saline) 1,000 mls @ 75 mls/hr IV ASDIRECTED [facility] Last Admin: 12/07/17 12:46 Dose: 75 mls/hr Ceftriaxone Sodium 2 gm/ (Sodium Chloride) 100 mls @ 100 mls/hr IV Q24H [facility] Last Admin: 12/07/17 08:30 Dose: 100 mls/hr Sodium Chloride (Normal Saline) 250 mls @ 250 mls/hr IV ASDIRECTED [facility] Last Admin: 12/07/17 13:39 Dose: 250 mls/hr Piperacillin Sod/Tazobactam (Sod 4.5 gm/ Sodium Chloride) 100 mls @ 25 mls/hr IV Q8H [facility] Ibuprofen (Motrin) 600 mg PO Q6H PRN PRN Reason: Pain/Fever Last Admin: 12/07/17 12:13 Dose: 600 mg Lactulose (Cephulac) 20 gm PO BID [facility] Last Admin: 12/07/17 08:30 Dose: 20 gm Levothyroxine Sodium (Levothyroxine) 25 mcg PO ACBREAKFAST [facility] Last Admin: 12/07/17 06:15 Dose: 25 mcg Lorazepam (Ativan) 2 mg IVPUSH Q4H PRN PRN Reason: Seizures Ondansetron HCl (Zofran Odt) 4 mg PO Q6H PRN PRN Reason: nausea, able to take PO Ondansetron HCl (Zofran) 4 mg IV Q6H PRN PRN Reason: Nausea/Vomiting Oxycodone HCl (Oxycodone) 5 mg PO Q8H PRN PRN Reason: Pain Last Admin: 12/07/17 14:15 Dose: 5 mg Pantoprazole Sodium (Protonix) 40 mg PO DAILY@0700 [facility] Last Admin: 12/07/17 06:15 Dose: 40 mg Ursodiol 250 Mg 0 each PO BEDTIME [facility] Last Admin: 12/06/17 20:25 Dose: 1 each Ursodiol 500 Mg 0 each PO DAILY [facility] Last Admin: 12/07/17 08:33 Dose: 1 each Rifaximin (Xifaxan) 550 mg PO BID [facility] Last Admin: 12/07/17 08:30 Dose: 550 mg Saccharomyces Boulardii (Florastor) 250 mg PO BID [facility] Last Admin: 12/07/17 08:33 Dose: 250 mg Sucralfate (Carafate) 1 gm PO QID PRN PRN Reason: Abdominal Pain Temazepam (Restoril) 7.5 mg PO BEDTIME PRN PRN Reason: Sleep Discontinued Medications Acetaminophen (Tylenol) 650 mg PO ONETIME ONE Stop: 12/05/17 19:13 Last Admin: 12/05/17 20:36 Dose: 650 mg Dextrose/Water (Dextrose 50% In Water) 50 ml IVPUSH ASDIRECTED PRN PRN Reason: hypoglycemia Enoxaparin Sodium (Lovenox) 30 mg SUBCUT Q24H [facility] Last Admin: 12/06/17 08:29 Dose: Not Given Dextrose/Sodium Chloride (Dextrose 5%-Normal Saline) 1,000 mls @ 150 mls/hr IV ASDIRECTED [facility] Last Admin: 12/05/17 20:36 Dose: 150 mls/hr Ceftriaxone Sodium 2 gm/ (Sodium Chloride) 100 mls @ 100 mls/hr IV ONETIME ONE Stop: 12/05/17 20:15 Last Admin: 12/05/17 20:37 Dose: 100 mls/hr Ceftriaxone Sodium 2 gm/ (Sodium Chloride) 100 mls @ 100 mls/hr IV ONETIME ONE Stop: 12/06/17 09:59 Last Admin: 12/06/17 08:28 Dose: 100 mls/hr Piperacillin Sod/Tazobactam (Sod 4.5 gm/ Sodium Chloride) 100 mls @ 200 mls/hr IV ONETIME ONE Stop: 12/07/17 12:29 Last Admin: 12/07/17 12:01 Dose: 200 mls/hr Insulin Aspart (Novolog) 0 unit SUBCUT QIDACANDBED [facility]; Protocol Lactulose (Cephulac) 40 gm PO ONETIME ONE Stop: 12/07/17 11:17 Last Admin: 12/07/17 12:01 Dose: 40 gm - Exam Quality Assessment: DVT Prophylaxis General: Lethargic HEENT: Pupils Equal, Pupils Reactive, EOMI Neck: Trachea Midline, No JVD Lungs: Normal Respiratory Effort Cardiovascular: Regular Rate, Regular Rhythm GI/Abdominal Exam: Normal Bowel Sounds, Soft, Non-Tender, Distended, Hepatomegaly (Female) Exam: Deferred Back Exam: Normal Inspection Extremities: Normal Inspection, Non-Tender, Slow Capillary Refill Skin: Warm Neurological: No New Focal Deficit Psy/Mental Status: Other (drowsy) - Problem List Review Problem List Initiated/Reviewed/Updated: Yes - My Orders Last 24 Hours: My Active Orders 12/07/17 11:18 Transfuse RBC [Transfuse Red Blood Cells] [COMM] Routine 12/07/17 11:30 Furosemide [Lasix] 40 mg IVPUSH ASDIRECTED Sodium Chloride 0.9% [Normal Saline] 250 ml IV ASDIRECTED 12/07/17 20:00 Piperacillin/Tazobactam [Zosyn] 4.5 gm Sodium Chloride 0.9% [Normal Saline] 100 ml IV Q8H - Plan Plan:: I/P: Acute: UTI Pending final sensitivity-->start Zosyn (Ecoli/Kleibsei) -Reports fever, chills, rigors for past day -Wheelchair bound since left femur fracture -Chronic indwelling urinary catheter -Rocephin started in ED - continue -IV fluids as ordered -UA shows trace ketones and occult blood, trace leukocyte esterase, 20-30 WBC , 10-20 epithelial cells, rare calcium oxalate crystal, many bacteria -Blood cultures - gram negative rods thus far -No leukocytosis -CRP 1.5-->1.2 -Lactic acid 2.1-->1.0 Elevated troponin, stable -Troponin 0.135-->0.138-->0.135 -CK-MB <0.5 -12-lead EKG shows paced rhythm -Denies chest pain or SOB -CXR shows Mild CHF and incidental findings -Was 0.175 on 06/23/17 at last ER visit -Appears to have chronic troponin leak Pancytopenia, -Appears to be chronic condition from prior notes -Likely 2/2 chronic medical conditions -Monitor -anemia, gradual drift will transfuse 1 unit PRBC to improve well being Cirrhosis-increase Ammonia level-->will adjust lactulose 40 mg BID Chronic: CAD heart failure HTN Pacemaker Cirrhosis Gastritis GI bleeds Recurrent UTIs Depression Type II DM - A1C 5.5; will discontinue BS checks and novolog Anesthesia reaction Hepatitis C History of left hip fracture repaired with rods Plan: Admit to medical floor on telemetry Home medications as ordered PT/OT Routine AM labs CM/SW for discharge planning Other orders ad indicated above DVT prophylaxis: SCDs and TEDs - low platelets GI Prophylaxis: Pts. home PPI Code status: DNR/DNI; PCP: Dr. Valverde Updated daughter via telephone. She reports patient has history of Type II DM, however A1C is 5.5 and blood sugars have been stable. Family is reportedly refusing SNF placement. Due to he hip fracture and being wheelchair bound the patient would benefit from a hospital bed and standard wheelchair. She is unable to bear weight on her left leg due to the fracture and family reports the patient has had very severe reactions to anesthesia in the past which limit her ability for surgical fixation. Due to his her mobility is severely reduced. She has a very real risk of bedsores and needs frequent repositioning. She also has substantial pain from this condition. It is believed she can safely utilize the wheelchair which would increase her mobility. She will likely need these items for up to 6 months, or longer if her PCP deems necessary.
[2017-12-07] MEDS: Piperacillin/Tazobactam 4.5 GM in Sodium Chloride 0.9% 100 ML IV SCH (20:11)
[2017-12-08] MEDS: Piperacillin/Tazobactam 4.5 GM in Sodium Chloride 0.9% 100 ML IV SCH ×3 (04:17→20:24)
[2017-12-08] MEDS: Pantoprazole 40 MG Tab.CR PO SCH (06:13)
[2017-12-08] MEDS: Ibuprofen 600 MG Tab PO PRN ×2 (06:13→20:23)
[2017-12-08] MEDS: Levothyroxine 25 MCG Tab PO SCH (06:13)
[2017-12-08] MEDS: Rifaximin 550 MG Tab PO SCH ×2 (09:41→20:23)
[2017-12-08] MEDS: Saccharomyces Boulardii (Probiotic) 250 MG Cap PO SCH ×2 (09:41→20:23)
[2017-12-08] MEDS: Lactulose Soln 10 GM/15 ML 30 ML UD Cup PO SCH ×2 (09:41→20:22)
[2017-12-08] MEDS: Gabapentin 100 MG Cap PO SCH ×2 (09:41→20:23)
--- NOTE | 2017-12-08 09:51 | PCM.PN ---
- General Info Date of Service: 12/08/17 Admission Dx/Problem (Free Text): Admission Diagnosis/Problem Admission Diagnosis/Problem UTI, Urinary tract infectious disease Subjective Update: Follow Up Functional Status: Reports: Pain Controlled, Tolerating Diet, Urinating. Denies : Ambulating, New Symptoms - Review of Systems General: Reports: Weakness, Fatigue. Denies: Fever, Chills HEENT: Reports: No Symptoms Pulmonary: Denies: Shortness of Breath, Pleuritic Chest Pain, Cough, Wheezing Cardiovascular: Reports: No Symptoms Gastrointestinal: Denies: Abdominal Pain, Nausea, Vomiting Genitourinary: Reports: No Symptoms Musculoskeletal: Reports: No Symptoms Skin: Denies: Cyanosis, Jaundice, Mottled, Pallor, Diaphoresis, Rash Neurological: Reports: Weakness. Denies: Confusion, Trouble Speaking, Gait Disturbance Psychiatric: Denies: Confusion, Depression, Anxiety, Hallucinations Systems Review Comment:: No overnight or acute issues. She seems to be doing just fine. She is unable to speak [place] but daughter present at bedside translated for her. Her WBC is 2.75 with a stable Hgb level of 8.8. His Mg and Albumin Level are both 1.6. Her UA is positive for E.coli and ESBL Klebsiella Pneumonia. - Patient Data Vitals - Most Recent: Last Vital Signs Temp 37.0 C 12/08/17 08:24 Pulse 65 12/08/17 08:24 Resp 18 12/08/17 08:24 BP 110/55 L 12/08/17 08:24 Pulse Ox 97 12/08/17 08:24 Weight - Most Recent: 62.142 kg I&O - Last 24 Hours: Intake & Output 12/07/17 12/08/17 12/08/17 22:59 06:59 14:59 Intake Total 1580 450 Output Total 4 Balance 1576 450 Lab Results Last 24 Hours: Laboratory Results - last 24 hr 12/06/17 12/08/17 12/08/17 Range/Units 13:24 06:12 06:12 WBC 2.75 L (3.98-10.04) K/mm3 RBC 3.58 L (3.98-5.22) M/mm3 Hgb 8.8 L (11.2-15.7) gm/L Hct 28.8 L (34.1-44.9) % MCV 80.4 (79.4-94.8) fl MCH 24.6 L (25.6-32.2) pg MCHC 30.6 L (32.2-35.5) g/dl RDW Std Deviation 54.2 H (36.4-46.3) fL Plt Count 68 L (182-369) K/mm3 MPV 11.4 (9.4-12.3) fl Neut % (Auto) 61.4 (34.0-71.1) % Lymph % (Auto) 19.3 (19.3-51.7) % [place] % (Auto) 14.9 H (4.7-12.5) % Eos % (Auto) 4.0 (0.7-5.8) Baso % (Auto) 0.4 (0.1-1.2) % Neut # (Auto) 1.69 (1.56-6.13) K/mm3 Lymph # (Auto) 0.53 L (1.18-3.74) K/mm3 [place] # (Auto) 0.41 H (0.24-0.36) K/mm3 Eos # (Auto) 0.11 (0.04-0.36) K/mm3 Baso # (Auto) 0.01 (0.01-0.08) K/mm3 Manual Slide Review Abnormal smear Sodium 143 (136-145) mEq/L Potassium 3.5 (3.5-5.1) mEq/L Chloride 111 H (98-107) mEq/L Carbon Dioxide 22 (21-32) mEq/L Anion Gap 13.5 (5-15) BUN 13 (7-18) mg/dL Creatinine 1.3 H (0.55-1.02) mg/dL Est Cr Clr Drug Dosing 25.62 mL/min Estimated GFR (MDRD) 40 (>60) mL/min BUN/Creatinine Ratio 10.0 L (14-18) Glucose 86 (83-115) mg/dL Calcium 8.3 L (8.5-10.1) mg/dL Magnesium 1.6 L (1.8-2.4) mg/dl Total Bilirubin 1.0 (0.2-1.0) mg/dL AST 19 (15-37) U/L ALT 11 L (14-59) U/L Alkaline Phosphatase 144 H (46-116) U/L Ammonia (11-32) umol/L C-Reactive Protein 2.0 H* (<1.0) mg/dL Total Protein 4.9 L (6.4-8.2) g/dl Albumin 1.6 L (3.4-5.0) g/dl Globulin 3.3 gm/dL Albumin/Globulin Ratio 0.5 L (1-2) Blood Type O POSITIVE Gel Antibody Screen Negative Crossmatch See Detail 12/08/17 Range/Units 06:12 WBC (3.98-10.04) K/mm3 RBC (3.98-5.22) M/mm3 Hgb (11.2-15.7) gm/L Hct (34.1-44.9) % MCV (79.4-94.8) fl MCH (25.6-32.2) pg MCHC (32.2-35.5) g/dl RDW Std Deviation (36.4-46.3) fL Plt Count (182-369) K/mm3 MPV (9.4-12.3) fl Neut % (Auto) (34.0-71.1) % Lymph % (Auto) (19.3-51.7) % [place] % (Auto) (4.7-12.5) % Eos % (Auto) (0.7-5.8) Baso % (Auto) (0.1-1.2) % Neut # (Auto) (1.56-6.13) K/mm3 Lymph # (Auto) (1.18-3.74) K/mm3 [place] # (Auto) (0.24-0.36) K/mm3 Eos # (Auto) (0.04-0.36) K/mm3 Baso # (Auto) (0.01-0.08) K/mm3 Manual Slide Review Sodium (136-145) mEq/L Potassium (3.5-5.1) mEq/L Chloride (98-107) mEq/L Carbon Dioxide (21-32) mEq/L Anion Gap (5-15) BUN (7-18) mg/dL Creatinine (0.55-1.02) mg/dL Est Cr Clr Drug Dosing mL/min Estimated GFR (MDRD) (>60) mL/min BUN/Creatinine Ratio (14-18) Glucose (83-115) mg/dL Calcium (8.5-10.1) mg/dL Magnesium (1.8-2.4) mg/dl Total Bilirubin (0.2-1.0) mg/dL AST (15-37) U/L ALT (14-59) U/L Alkaline Phosphatase (46-116) U/L Ammonia 39 H (11-32) umol/L C-Reactive Protein (<1.0) mg/dL Total Protein (6.4-8.2) g/dl Albumin (3.4-5.0) g/dl Globulin gm/dL Albumin/Globulin Ratio (1-2) Blood Type Gel Antibody Screen Crossmatch [place] Results Last 24 Hours: Microbiology 12/05/17 20:00 Aerobic Blood Culture - Preliminary Blood - Venous - Lab Draw NO GROWTH AFTER 2 DAYS Anaerobic Blood Culture - Final 12/05/17 19:45 Aerobic Blood Culture - Preliminary Blood - Venous NO GROWTH AFTER 2 DAYS Anaerobic Blood Culture - Preliminary NO GROWTH AFTER 2 DAYS 12/05/17 20:30 Urine Culture - Preliminary Urine, Catheterized Escherichia Coli Klebsiella Pneumoniae Med Orders - Current: Current Medications Gabapentin (Neurontin) 100 mg PO BID [facility] Last Admin: 12/08/17 09:41 Dose: 100 mg Piperacillin Sod/Tazobactam (Sod 4.5 gm/ Sodium Chloride) 100 mls @ 25 mls/hr IV Q8H [facility] Last Admin: 12/08/17 04:17 Dose: 25 mls/hr Ibuprofen (Motrin) 600 mg PO Q6H PRN PRN Reason: Pain/Fever Last Admin: 12/08/17 06:13 Dose: 600 mg Lactulose (Cephulac) 20 gm PO BID [facility] Last Admin: 12/08/17 09:41 Dose: 20 gm Levothyroxine Sodium (Levothyroxine) 25 mcg PO ACBREAKFAST [facility] Last Admin: 12/08/17 06:13 Dose: 25 mcg Lorazepam (Ativan) 2 mg IVPUSH Q4H PRN PRN Reason: Seizures Ondansetron HCl (Zofran Odt) 4 mg PO Q6H PRN PRN Reason: nausea, able to take PO Ondansetron HCl (Zofran) 4 mg IV Q6H PRN PRN Reason: Nausea/Vomiting Oxycodone HCl (Oxycodone) 5 mg PO Q8H PRN PRN Reason: Pain Last Admin: 12/07/17 14:15 Dose: 5 mg Pantoprazole Sodium (Protonix) 40 mg PO DAILY@0700 [facility] Last Admin: 12/08/17 06:13 Dose: 40 mg Ursodiol 250 Mg 0 each PO BEDTIME [facility] Last Admin: 12/07/17 20:18 Dose: 1 each Ursodiol 500 Mg 0 each PO DAILY [facility] Last Admin: 12/08/17 09:41 Dose: 2 each Rifaximin (Xifaxan) 550 mg PO BID [facility] Last Admin: 12/08/17 09:41 Dose: 550 mg Saccharomyces Boulardii (Florastor) 250 mg PO BID [facility] Last Admin: 12/08/17 09:41 Dose: 250 mg Sucralfate (Carafate) 1 gm PO QID PRN PRN Reason: Abdominal Pain Temazepam (Restoril) 7.5 mg PO BEDTIME PRN PRN Reason: Sleep Discontinued Medications Acetaminophen (Tylenol) 650 mg PO ONETIME ONE Stop: 12/05/17 19:13 Last Admin: 12/05/17 20:36 Dose: 650 mg Dextrose/Water (Dextrose 50% In Water) 50 ml IVPUSH ASDIRECTED PRN PRN Reason: hypoglycemia Enoxaparin Sodium (Lovenox) 30 mg SUBCUT Q24H [facility] Last Admin: 12/06/17 08:29 Dose: Not Given Furosemide (Lasix) 40 mg IVPUSH ASDIRECTED [facility] Stop: 12/07/17 18:00 Last Admin: 12/07/17 17:23 Dose: 40 mg Dextrose/Sodium Chloride (Dextrose 5%-Normal Saline) 1,000 mls @ 150 mls/hr IV ASDIRECTED [facility] Last Admin: 12/05/17 20:36 Dose: 150 mls/hr Ceftriaxone Sodium 2 gm/ (Sodium Chloride) 100 mls @ 100 mls/hr IV ONETIME ONE Stop: 12/05/17 20:15 Last Admin: 12/05/17 20:37 Dose: 100 mls/hr Sodium Chloride (Normal Saline) 1,000 mls [facility] Admin: 12/07/17 12:46 Dose: 75 mls/hr Ceftriaxone Sodium 2 gm/ (Sodium Chloride) 100 mls @ 100 mls/hr IV ONETIME ONE Stop: 12/06/17 09:59 Last Admin: 12/06/17 08:28 Dose: 100 mls/hr Ceftriaxone Sodium 2 gm/ (Sodium Chloride) 100 mls @ 100 mls/hr IV Q24H [facility] Last Admin: 12/07/17 08:30 Dose: 100 mls/hr Sodium Chloride (Normal Saline) 250 mls @ 250 mls/hr IV ASDIRECTED [facility] Last Admin: 12/07/17 13:39 Dose: 250 mls/hr Piperacillin Sod/Tazobactam (Sod 4.5 gm/ Sodium Chloride) 100 mls @ 200 mls/hr IV ONETIME ONE Stop: 12/07/17 12:29 Last Admin: 12/07/17 12:01 Dose: 200 mls/hr Insulin Aspart (Novolog) 0 unit SUBCUT QIDACANDBED [facility]; Protocol Lactulose (Cephulac) 40 gm PO ONETIME ONE Stop: 12/07/17 11:17 Last Admin: 12/07/17 12:01 Dose: 40 gm - Exam General: Alert, Cooperative, No Acute Distress HEENT: Pupils Equal, Pupils Reactive, Mucous Membr. Moist/[place] Neck: Supple, Trachea Midline, No JVD, No Thyromegaly Lungs: Normal Respiratory Effort, Decreased Breath Sounds Cardiovascular: Regular Rate, Regular Rhythm GI/Abdominal Exam: Normal Bowel Sounds, Soft, Non-Tender, No Organomegaly, No Distention, No Abnormal Bruit (Female) Exam: Deferred Back Exam: Normal Inspection, Decreased Range of Motion Extremities: Normal Inspection, Normal Range of Motion, Non-Tender, Normal Capillary Refill Peripheral Pulses: 2+: Dorsalis Pedis (L), Dorsalis Pedis (R) Skin: Warm, Dry, Intact Neurological: No New Focal Deficit Psy/Mental Status: Alert, Normal Mood, Hallucinations. No: Normal Affect, Agitated - Problem List Review Problem List Initiated/Reviewed/Updated: Yes - Plan Plan:: I/P: Acute: UTI 2/2 Chronic Indwelling Catheter --> continue IV Zosyn (Ecoli/ESBL Klebsiella pneumoniae) -Reports fever, chills, rigors for past day -Wheelchair bound since left femur fracture -Chronic indwelling urinary catheter -Rocephin started in ED -UA shows trace ketones and occult blood, trace leukocyte esterase, 20-30 WBC , 10-20 epithelial cells, rare calcium oxalate crystal, many bacteria -Blood cultures - shows no growth fro 3 days -No leukocytosis -CRP 1.5-->1.2-->2.0 -Lactic acid 2.1-->1.0 Elevated Troponin, stable -Troponin 0.135-->0.138-->0.135 -CK-MB <0.5 -12-lead EKG shows paced rhythm -Denies chest pain or SOB -CXR shows Mild CHF and incidental findings -Was 0.175 on 06/23/17 at last ER visit -Appears to have chronic troponin leak Pancytopenia -Appears to be chronic condition from prior notes -Likely 2/2 Advanced Liver Disease -Received 1 unit of PRBC -Hgb is stable at 8.8 Poor Functionally S/p Fall -Wheelchair bound with folfey catheter after recent fall End of Life Care -Discussion with family but not receptive at this point Chronic: CAD Heart Failure with unknown EF HTN Pacemaker Placement Liver Cirrhosis S/p TIPs Gastritis GI bleeds Recurrent UTIs Depression Relative Hypotension Type II DM - A1C 5.5; will discontinue BS checks and novolog Anesthesia reaction during Surgery Hepatitis C History of left hip fracture repaired with rods Plan: She is clinically stable Continue current treatment Continue PT/OT Routine AM labs May benefit with Hospice/Palliative but family is not receptive at this pint CM/SW for discharge planning Other orders ad indicated above DVT prophylaxis: SCDs and TEDs - low platelets GI Prophylaxis: Pts. home PPI Additional orders as above Code status: DNR/DNI; PCP: Dr. Valverde LOS > 96 hrs due to slow response to treatment Updated daughter and at bedside about patient's diagnoses, treatment, clinical progress, prognosis and discharge care plans. I recommended NH due her poor functional status but daughter refused. However I did express my concerns about her grim overall prognosis. Informed daughter patient may do better if mom has access to better healthcare. She has a son who lives in [place], [place]; told the daughter might be better off if patient moves there with more access to world class specialists.
[2017-12-09] MEDS: Piperacillin/Tazobactam 4.5 GM in Sodium Chloride 0.9% 100 ML IV SCH ×2 (03:54→13:02)
[2017-12-09] MEDS: Pantoprazole 40 MG Tab.CR PO SCH (06:14)
[2017-12-09] MEDS: Levothyroxine 25 MCG Tab PO SCH (06:14)
[2017-12-09] MEDS: Ibuprofen 600 MG Tab PO PRN (06:14)
[2017-12-09] MEDS: Saccharomyces Boulardii (Probiotic) 250 MG Cap PO SCH (09:11)
[2017-12-09] MEDS: Gabapentin 100 MG Cap PO SCH (09:12)
[2017-12-09] MEDS: Rifaximin 550 MG Tab PO SCH (09:13)
[2017-12-09] MEDS: Lactulose Soln 10 GM/15 ML 30 ML UD Cup PO SCH (09:18)
--- NOTE | 2017-12-09 09:39 | PCM.DCSUM1 ---
Discharge Summary - Hospital Course HPI Initial Comments: Radha Ramirez is a 77 yo female who primarily speaks [place] who presents to our ED in the evening of 12/05/17 with complaints of fever, chills and rigors which started yesterday. She reportedly has a left femur fracture which occurred 2 months ago and is thus non-weight bearing and wheelchair bound for the most part. She does have a [place] catheter in place since her fracture and has been prone to urinary tract infections ever since. 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 peripheral intake has been poor and she's been nauseated however she has not vomited. She has a chronic cough but it reportedly is not any worseor more productive than normal. History was obtained through interpreters and her granddaughter. She reportedly in [place] 2 weeks ago for sepsis from a urinary tract infection. Reportedly only used her lactulose once a day and she was instructed to take up to 4 times depending on her degree of constipation. She did eat a small meal prior to coming to the ED and that did stay down. in the ER template 100.3 Celsius. Pulse 110. Respirations 18. Blood pressure 1 4454. Pulse ox 100%. Labs were obtained: WBC is 3.98. RBC is low at 3.76. Hemoglobin low at 9.2. Hematocrit low at 30.6. She is normocytic. Platelets are low at 81,000. Neutrophils are elevated at 76%. There is no bandemia. PT is 15.1. INR is 1.39. APTT 31. Ammonia is 21. ESR is Sodium is 139. Potassium 3.8. Chloride 107. Carbon dioxide 25. Anion gap is good at 10.8. BUN is 9. Creatinine 1.2. EGFR is 43. Glucose is high at 164. Lactic acid is high at 2.1. Calcium is 8.9. Magnesium 1.8. Total bilirubin is high at 1.1. AST is 33, a LT is 19, alkaline phosphatase is high at 219. She was given Tylenol and started on Rocephin She was also started on D5NS at 100 mils an hour. Chest x-ray is obtained and interpreted by the ED provideras showing mild cardiomegaly. There is a diffuse vascular congestion pattern particularly the rightperihilar area. No obvious pneumonia is present. 12-lead EKG was obtained and shows a paced rhythm. She carries a history of CAD, heart failure, HTN, Pacemaker, Cirrhosis, Gastritis, GI bleeds, recurrent UTIs, Depression, Type II DM, anesthesia reactions, Hepatitis C. She was never a smoker. Her PCP is Dr. Valverde here at [facility]. Diagnosis: Stroke: No - Discharge Data Discharge Date: 12/09/17 (Admit Date: 12/05/17) Discharge Disposition: Home, W Home Health Agency 06 Condition: Fair - Discharge Diagnosis/Problem(s) (1) Upper urinary tract infection SNOMED Code(s): 421419737 ICD Code: N39.0 - URINARY TRACT INFECTION, SITE NOT SPECIFIED Status: Acute Priority: High Current Visit: Yes (2) Acute febrile illness SNOMED Code(s): 375881179 ICD Code: R50.9 - FEVER, UNSPECIFIED Status: Acute Priority: High Current Visit: Yes (3) Anemia SNOMED Code(s): 490067853 ICD Code: D64.9 - ANEMIA, UNSPECIFIED Status: Acute Priority: High Current Visit: Yes Qualifiers: Anemia type: unspecified type Qualified Code(s): D64.9 - Anemia, unspecified (4) Cirrhosis SNOMED Code(s): 10211214 ICD Code: K74.60 - UNSPECIFIED CIRRHOSIS OF LIVER Status: Chronic Priority: High Current Visit: Yes Qualifiers: Hepatic cirrhosis type: unspecified hepatic cirrhosis Ascites presence: with ascites Qualified Code(s): K74.60 - Unspecified cirrhosis of liver; R18.8 - Other ascites (5) Hepatitis C SNOMED Code(s): 12812250 ICD Code: B19.20 - UNSPECIFIED VIRAL HEPATITIS C WITHOUT HEPATIC COMA Status: Chronic Priority: Medium Current Visit: Yes Qualifiers: Viral hepatitis chronicity: chronic Hepatic coma status: without hepatic coma Qualified Code(s): B18.2 - Chronic viral hepatitis C (6) Pancytopenia SNOMED Code(s): 265884375 ICD Code: D61.818 - OTHER PANCYTOPENIA Status: Chronic Priority: Medium Current Visit: Yes (7) History of hip fracture SNOMED Code(s): 191097797 ICD Code: Z87.81 - PERSONAL HISTORY OF (HEALED) TRAUMATIC FRACTURE Status: Chronic Priority: Medium Current Visit: Yes (8) Elevated troponin SNOMED Code(s): 218777026, 218050152, 477753597 ICD Code: R74.8 - ABNORMAL LEVELS OF OTHER SERUM ENZYMES Status: Chronic Priority: Medium Current Visit: Yes - Patient Summary/Data Consults: Consultations 12/06/17 01:54 Consult to Case Management [CONS] Routine 12/06/17 07:22 Consult to Communications Clerk [CONS] Routine OT Evaluation and Treatment [CONS] Routine PT Evaluation and Treatment [CONS] Routine Labs Pending at D/C: None Recommended Follow-up Testing/Procedures: Recommend following up with primary care provider within 7-10 days. Will order every other day BMP checks through home health to monitor renal function. Hospital Course: I/P: Acute: UTI 2/2 Chronic Indwelling Catheter --> continue IV Zosyn (Ecoli/ESBL Klebsiella pneumoniae) -Reports fever, chills, rigors for past day -Wheelchair bound since left femur fracture -Chronic indwelling urinary catheter -Rocephin started in ED -UA shows trace ketones and occult blood, trace leukocyte esterase, 20-30 WBC , 10-20 epithelial cells, rare calcium oxalate crystal, many bacteria -Blood cultures - shows no growth for 3 days -No leukocytosis -CRP 1.5-->1.2-->2.0 -Lactic acid 2.1-->1.0 Elevated Troponin, stable -Troponin 0.135-->0.138-->0.135 -CK-MB <0.5 -12-lead EKG shows paced rhythm -Denies chest pain or SOB -CXR shows Mild CHF and incidental findings -Was 0.175 on 06/23/17 at last ER visit -Appears to have chronic troponin leak Pancytopenia -Appears to be chronic condition from prior notes -Likely 2/2 Advanced Liver Disease -Received 1 unit of PRBC -Hgb is stable at 8.8-->9.6 Poor Functionally S/p Fall -Wheelchair bound with espana catheter after recent fall End of Life Care -Discussion with family but not receptive at this point Chronic: CAD Heart Failure with unknown EF HTN Pacemaker Placement Liver Cirrhosis S/p TIPs Gastritis GI bleeds Recurrent UTIs Depression Relative Hypotension Type II DM - A1C 5.5; will discontinue BS checks and novolog Anesthesia reaction during Surgery Hepatitis C History of left hip fracture repaired with rods Plan: She is clinically stable Continue current treatment Continue PT/OT Routine AM labs May benefit with Hospice/Palliative but family is not receptive at this pint CM/SW for discharge planning Other orders ad indicated above DVT prophylaxis: SCDs and TEDs - low platelets GI Prophylaxis: Pts. home PPI Additional orders as above Code status: DNR/DNI; PCP: Dr. Valverde LOS > 96 hrs due to slow response to treatment Overall Radha did quite well. Throughout her stay many staff members recommended SNF placement however the family refused. Dr. Sethi discussed overall prognosis with the patient and her family and the limited resources we have to offer in this area for medical care. End of life care was discussed, however the family was not receptive at this point. Her hgb was low and she was given one unit of blood while with us. Blood cultures remained negative. Her urine grew Ecoli/ESBL and Klebsiella pneumoniae. She was started on rocephin here and eventually given zosyn here once cultures were back. She was resistant to multiple medications and essentially had two PO choices. Unfortunately she is allergic to levaquin (anaphylactic reaction) so this cannot be utilized. The only other choices are PO macrobid and a few IV antibiotics. Her creatinine is 1.2 today and has been hovering around this area. Discussed options with pharmacy and with patients family and the decision was made to start macrobid Q6Hr for 5 days at discharge. Will also order every day BMP lab draws. These can be obtained through home health. She will also be discharged on a probiotic. She was instructed to utilize good espana hygiene prior to discharge. She should follow-up with her primary care provider within 7-10 days of discharge, sooner if needed. Her PCP is Dr. Valverde and my understanding is he will be on an extended leave of absence shortly. If unable to see him she should follow-up with another provider in our clinic. It was reported that she has type II DM however her A1C was 5.5 and blood sugars were stable. I personally met with Radha and her family face to face to discuss her discharge plan of care. Given her mobility issues and chronic conditions I feel she will be homebound. She already has home health and will be continuing this on discharge. They will obtain a BMP on 12/11, 12/13, and 12/14 to monitor kidney function. Her PCP, Dr. Valverde can monitor her and adjust services as necessary. In his absence whoever is covering his patients at the clinic will be an excellent substitute for care. Due to he hip fracture and being wheelchair bound the patient would benefit from a hospital bed and standard wheelchair. She is unable to bear weight on her left leg due to the fracture and family reports the patient has had very severe reactions to anesthesia in the past which limit her ability for surgical fixation. PT/OT has been utilizing pivot assist with her due to pain from this fracture. Due to this her mobility is severely reduced and she cannot safely use a cane or walker. She has a very real risk of bedsores and needs frequent repositioning. She also has dementia and is a major fall risk. She has substantial pain from this condition and is on narcotics which were prescribed by her PCP. It is believed she can safely utilize the wheelchair which would increase her mobility. She will likely need these items for up to 6 months, or longer if her PCP deems necessary. If unable to obtain hospital bed, she may benefit from side rails attached to her current bed to assist with repositioning. - Patient Instructions Diet: Heart Healthy Diet Activity: As Tolerated Driving: Do Not Drive Showering/Bathing: May Shower Notify Provider of: Fever, Increased Pain, Nausea and/or Vomiting - Discharge Plan Prescriptions/Med Rec: Nitrofurantoin Monohyd/M-Cryst [Macrobid 100 mg Capsule] 100 mg PO Q6HR #20 capsule Saccharomyces Boulardii [Florastor] 250 mg PO BID #40 cap Home Medications: Home Meds Ergocalciferol (Vitamin D2) [Vitamin D2] 50,000 unit PO WEEKLY 06/23/17 [History ] Furosemide 20 mg PO DAILY 06/23/17 [History] Levothyroxine 25 mcg PO DAILY 06/23/17 [History] Magnesium 250 mg PO DAILY 06/23/17 [History] Pantoprazole Sodium 40 mg PO ACBREAKFAST 06/23/17 [History] Ranitidine HCl [Ranitidine] 300 mg PO BID 06/23/17 [History] Rifaximin [Xifaxan] 550 mg PO BID 06/23/17 [History] Sucralfate [Carafate] 1 gm PO QID PRN 06/23/17 [History] Ursodiol 250 mg PO BEDTIME 06/23/17 [History] Ursodiol 500 mg PO DAILY 06/23/17 [History] Lactulose [Constulose] 20 gm PO BID 12/05/17 [History] oxyCODONE 5 mg PO Q8HR PRN 12/05/17 [History] Nitrofurantoin Monohyd/M-Cryst [Macrobid 100 mg Capsule] 100 mg PO Q6HR #20 capsule 12/09/17 [Rx] Saccharomyces Boulardii [Florastor] 250 mg PO BID #40 cap 12/09/17 [Rx] Patient Handouts: Urinary Tract Infection, Adult, [id number] Forms: ED Department Discharge Referrals: PCP,None [Ordering Only Provider] - - Discharge Summary/Plan Comment DC Time >30 min.: Yes (120 mins) - General Info Date of Service: 12/09/17 Admission Dx/Problem (Free Text: Admission Diagnosis/Problem Admission Diagnosis/Problem UTI, Urinary tract infectious disease Functional Status: Reports: Pain Controlled, Tolerating Diet, Ambulating, Urinating. Denies: New Symptoms - Review of Systems General: Reports: Weakness, Fatigue. Denies: No Symptoms, Fever HEENT: Reports: No Symptoms Pulmonary: Reports: No Symptoms. Denies: Shortness of Breath, Cough Cardiovascular: Reports: No Symptoms. Denies: Chest Pain, Dyspnea on Exertion Gastrointestinal: Reports: No Symptoms. Denies: Abdominal Pain, Constipation, Diarrhea, Nausea, Vomiting Genitourinary: Reports: No Symptoms Musculoskeletal: Reports: Joint Pain (left hip ) Skin: Reports: No Symptoms Neurological: Reports: No Symptoms Psychiatric: Reports: No Symptoms - Patient Data Vitals - Most Recent: Last Vital Signs Temp 98.1 F 12/09/17 03:32 Pulse 67 12/09/17 03:32 Resp 18 12/09/17 03:32 BP 118/40 L 12/09/17 03:32 Pulse Ox 96 12/09/17 06:47 Weight - Most Recent: 134 lb 8 oz I&O - Last 24 hours: Intake & Output 12/08/17 12/09/17 12/09/17 22:59 06:59 14:59 Intake Total 680 400 Balance 680 400 Lab Results - Last 24 hrs: Laboratory Results - last 24 hr 12/09/17 12/09/17 12/09/17 Range/Units 07:25 07:25 07:25 WBC 3.27 L (3.98-10.04) K/mm3 RBC 3.87 L (3.98-5.22) M/mm3 Hgb 9.6 L (11.2-15.7) gm/L Hct 31.3 L (34.1-44.9) % MCV 80.9 (79.4-94.8) fl MCH 24.8 L (25.6-32.2) pg MCHC 30.7 L (32.2-35.5) g/dl RDW Std Deviation 56.5 H (36.4-46.3) fL Plt Count 75 L (182-369) K/mm3 MPV TNP Neut % (Auto) 58.7 (34.0-71.1) % Lymph % (Auto) 23.5 (19.3-51.7) % Slope % (Auto) 13.8 H (4.7-12.5) % Eos % (Auto) 3.7 (0.7-5.8) Baso % (Auto) 0.3 (0.1-1.2) % Neut # (Auto) 1.92 (1.56-6.13) K/mm3 Lymph # (Auto) 0.77 L (1.18-3.74) K/mm3 Slope # (Auto) 0.45 H (0.24-0.36) K/mm3 Eos # (Auto) 0.12 (0.04-0.36) K/mm3 Baso # (Auto) 0.01 (0.01-0.08) K/mm3 Manual Slide Review Abnormal smear Sodium 143 (136-145) mEq/L Potassium 3.6 (3.5-5.1) mEq/L Chloride 112 H (98-107) mEq/L Carbon Dioxide 23 (21-32) mEq/L Anion Gap 11.6 (5-15) BUN 14 (7-18) mg/dL Creatinine 1.2 H (0.55-1.02) mg/dL Est Cr Clr Drug Dosing 27.75 mL/min Estimated GFR (MDRD) 43 (>60) mL/min BUN/Creatinine Ratio 11.7 L (14-18) Glucose 89 (83-115) mg/dL Calcium 8.2 L (8.5-10.1) mg/dL Magnesium 1.7 L (1.8-2.4) mg/dl Total Bilirubin 0.9 (0.2-1.0) mg/dL AST 18 (15-37) U/L ALT 10 L (14-59) U/L Alkaline Phosphatase 143 H (46-116) U/L Ammonia 21 (11-32) umol/L C-Reactive Protein 2.2 H* (<1.0) mg/dL Total Protein 5.3 L (6.4-8.2) g/dl Albumin 1.8 L (3.4-5.0) g/dl Globulin 3.5 gm/dL Albumin/Globulin Ratio 0.5 L (1-2) LUCILLE Results - Last 24 hrs: Microbiology 12/05/17 20:00 Aerobic Blood Culture - Preliminary Blood - Venous - Lab Draw NO GROWTH AFTER 3 DAYS Anaerobic Blood Culture - Final 12/05/17 19:45 Aerobic Blood Culture - Preliminary Blood - Venous NO GROWTH AFTER 3 DAYS Anaerobic Blood Culture - Preliminary NO GROWTH AFTER 3 DAYS 12/05/17 20:30 Urine Culture - Final Urine, Catheterized Escherichia Coli (Esbl) Klebsiella Pneumonia Med Orders - Current: Current Medications Gabapentin (Neurontin) 100 mg PO BID [facility] Last Admin: 12/09/17 09:12 Dose: 100 mg Piperacillin Sod/Tazobactam (Sod 4.5 gm/ Sodium Chloride) 100 mls @ 25 mls/hr IV Q8H [facility] Last Admin: 12/09/17 03:54 Dose: 25 mls/hr Ibuprofen (Motrin) 600 mg PO Q6H PRN PRN Reason: Pain/Fever Last Admin: 12/09/17 06:14 Dose: 600 mg Lactulose (Cephulac) 20 gm PO BID [facility] Last Admin: 12/09/17 09:18 Dose: 20 gm Levothyroxine Sodium (Levothyroxine) 25 mcg PO ACBREAKFAST [facility] Last Admin: 12/09/17 06:14 Dose: 25 mcg Lorazepam (Ativan) 2 mg IVPUSH Q4H PRN PRN Reason: Seizures Ondansetron HCl (Zofran Odt) 4 mg PO Q6H PRN PRN Reason: nausea, able to take PO Last Admin: 12/08/17 13:28 Dose: 4 mg Ondansetron HCl (Zofran) 4 mg IV Q6H PRN PRN Reason: Nausea/Vomiting Oxycodone HCl (Oxycodone) 5 mg PO Q8H PRN PRN Reason: Pain Last Admin: 12/07/17 14:15 Dose: 5 mg Pantoprazole Sodium (Protonix) 40 mg PO DAILY@0700 [facility] Last Admin: 12/09/17 06:14 Dose: 40 mg Ursodiol 250 Mg 0 each PO BEDTIME [facility] Last Admin: 12/08/17 20:23 Dose: 1 each Ursodiol 500 Mg 0 each PO DAILY [facility] Last Admin: 12/09/17 09:11 Dose: 2 each Rifaximin (Xifaxan) 550 mg PO BID [facility] Last Admin: 12/09/17 09:13 Dose: 550 mg Saccharomyces Boulardii (Florastor) 250 mg PO BID [facility] Last Admin: 12/09/17 09:11 Dose: 250 mg Sucralfate (Carafate) 1 gm PO QID PRN PRN Reason: Abdominal Pain Temazepam (Restoril) 7.5 mg PO BEDTIME PRN PRN Reason: Sleep Discontinued Medications Acetaminophen (Tylenol) 650 mg PO ONETIME ONE Stop: 12/05/17 19:13 Last Admin: 12/05/17 20:36 Dose: 650 mg Dextrose/Water (Dextrose 50% In Water) 50 ml IVPUSH ASDIRECTED PRN PRN Reason: hypoglycemia Enoxaparin Sodium (Lovenox) 30 mg SUBCUT Q24H [facility] Last Admin: 12/06/17 08:29 Dose: Not Given Furosemide (Lasix) [facility] Stop: 12/07/17 18:00 Last Admin: 12/07/17 17:23 Dose: 40 mg Dextrose/Sodium Chloride (Dextrose 5%-Normal Saline) 1,000 mls @ 150 mls/hr IV ASDIRECTED [facility] Last Admin: 12/05/17 20:36 Dose: 150 mls/hr Ceftriaxone Sodium 2 gm/ (Sodium Chloride) 100 mls @ 100 mls/hr IV ONETIME ONE Stop: 12/05/17 20:15 Last Admin: 12/05/17 20:37 Dose: 100 mls/hr Sodium Chloride (Normal Saline) 1,000 mls @ 75 mls[facility] Last Admin: 12/07/17 12:46 Dose: 75 mls/hr Ceftriaxone Sodium 2 gm/ (Sodium Chloride) 100 mls @ 100 mls/hr IV ONETIME ONE Stop: 12/06/17 09:59 Last Admin: 12/06/17 08:28 Dose: 100 mls/hr Ceftriaxone Sodium 2 gm/ (Sodium Chloride) 100 mls @ 100 mls/hr IV Q24H [facility] Last Admin: 12/07/17 08:30 Dose: 100 mls/hr Sodium Chloride (Normal Saline) 250 mls @ 250 mls/hr IV ASDIRECTED [facility] Last Admin: 12/07/17 13:39 Dose: 250 mls/hr Piperacillin Sod/Tazobactam (Sod 4.5 gm/ Sodium Chloride) 100 mls @ 200 mls/hr IV ONETIME ONE Stop: 12/07/17 12:29 Last Admin: 12/07/17 12:01 Dose: 200 mls/hr Insulin Aspart (Novolog) 0 unit SUBCUT QIDACANDBED [facility]; Protocol Lactulose (Cephulac) 40 gm PO ONETIME ONE Stop: 12/07/17 11:17 Last Admin: 12/07/17 12:01 Dose: 40 gm - Exam Quality Assessment: Reports: DVT Prophylaxis General: Reports: Alert, Oriented, Cooperative, No Acute Distress HEENT: Reports: Pupils Equal, Pupils Reactive, EOMI, Mucous Membr. Moist/Speed Neck: Reports: Supple, Trachea Midline, No JVD Lungs: Reports: Normal Respiratory Effort, Decreased Breath Sounds Cardiovascular: Reports: Regular Rate, Regular Rhythm GI/Abdominal Exam: Normal Bowel Sounds, Soft, Non-Tender (Female) Exam: Deferred Rectal (Female) Exam: Deferred Back Exam: Reports: Normal Inspection, Full Range of Motion Extremities: No Pedal Edema, Normal Capillary Refill, Leg Pain, Limited Range of Motion Skin: Reports: Warm, Dry, Intact Neurological: Reports: No New Focal Deficit Psy/Mental Status: Reports: Alert, Normal Affect, Normal Mood
[2017-12-09] MEDS: oxyCODONE 5 MG Tab PO PRN (10:23)
== END 2017-12-09 18:00 | disposition home health service (06) | DRG 699 ==
LOC: JD.ED 18:22 → JD.MS 22:42
PROVIDERS: ADMIT Internal Medicine Cardiovascular Disease; ATTEND Internal Medicine Cardiovascular Disease
PROC: 30233N1 Transfusion of Nonautologous Red Blood Cells into Peripheral Vein, Percutaneous Approach (ICD-10-PCS; principal; 2017-12-07)
DX: T83.518A Infection and inflammatory reaction due to other urinary catheter, initial encounter (principal); N39.0 Urinary tract infection, site not specified; R18.8 Other ascites; D61.818 Other pancytopenia; Y84.6 Urinary catheterization as the cause of abnormal reaction of the patient, or of later complication, without mention of misadventure at the time of the procedure; B96.20 Unspecified Escherichia coli [E. coli] as the cause of diseases classified elsewhere; Z16.12 Extended spectrum beta lactamase (ESBL) resistance; B96.1 Klebsiella pneumoniae [K. pneumoniae] as the cause of diseases classified elsewhere; K74.60 Unspecified cirrhosis of liver; B19.20 Unspecified viral hepatitis C without hepatic coma; I25.10 Atherosclerotic heart disease of native coronary artery without angina pectoris; D69.6 Thrombocytopenia, unspecified; D64.9 Anemia, unspecified; I50.9 Heart failure, unspecified; I11.0 Hypertensive heart disease with heart failure; F32.9 Major depressive disorder, single episode, unspecified; E11.9 Type 2 diabetes mellitus without complications; K29.70 Gastritis, unspecified, without bleeding; G89.29 Other chronic pain; R50.9 Fever, unspecified; R11.0 Nausea; R53.83 Other fatigue; R42 Dizziness and giddiness; R41.0 Disorientation, unspecified; R10.9 Unspecified abdominal pain; R53.81 Other malaise; R06.02 Shortness of breath; R53.1 Weakness; R51 Headache; R30.0 Dysuria; R35.0 Frequency of micturition; R05 Cough; H54.7 Unspecified visual loss; R74.8 Abnormal levels of other serum enzymes; Z95.0 Presence of cardiac pacemaker; Z66 Do not resuscitate; Z99.3 Dependence on wheelchair; Z88.1 Allergy status to other antibiotic agents; Z79.899 Other long term (current) drug therapy; Z87.440 Personal history of urinary (tract) infections; Z87.81 Personal history of (healed) traumatic fracture
CPT/HCPCS: 36415; 71045; 80053; 81001; 82140; 82553; 83605; 83735; 83880; 84484; 85007; 85027; 85610; 85652; 85730; 86140; 87040 ×2; 87086; 87088 ×2; 87186 ×2; 93005; 96361; 96365; 99285; A9270; J0696; J7030; J7042; 36430; 80048; 82962; 83036; 85025; 86850; 86900; 86901; 86922; 93010; 97161-GP; 97166-GO; 97530-GO; 97530-GP; J1650; J1940; J2543; J7040; J7050; P9016

== ENCOUNTER 2017-12-21 18:51 | Inpatient (IN) | payer MEDICARE, MEDICAID ==
[2017-12-21] MEDS ORDERED: Ondansetron 4 MG/2 ML SDV IVPUSH ONE (19:08)
--- NOTE | 2017-12-21 19:13 | EDM.PDOC ---
ED HPI GENERAL MEDICAL PROBLEM - General Chief Complaint: Neuro Symptoms/Deficits Stated Complaint: AMBULANCE Time Seen by Provider: 12/21/17 19:00 Source of Information: Reports: Family (daughter) History Limitations: Reports: Altered Mental Status (non verbal. stares off into space. ) - History of Present Illness INITIAL COMMENTS - FREE TEXT/NARRATIVE: 77-year-old female of Yi [place] descent arrives in the ED per ambulance. She has been exhibiting altered level of consciousness for the last 2-3 days. This morning she's been staring off into space and entered her daughter only once with I don't know. She has broken her LT hip in the last week of September of this year and has been essentially bedbound. Incisions had been made not to proceed with definitive surgical repair. For the last several days she's been taking only small sips of oral liquids such as chicken broth or water. Sometimes chokes. She did vomit about 3:00 this morning of bilious material. There is also some phlegm mixed in it like she had coughed it up. Running a low- grade fever according to the daughter. Patient essentially been bedbound for the last 3 months. At present she is nonverbal. She is mildly warm to palpation. Is obtained from the daughter. No bowel movement for the last 2 days. Daughter has been giving her some Colace orally but no bowel movement has occurred. This is likely due to very little solid food ingestion over the last week. She didn't get any of her medicines today. Of note the patient has type 2 diabetes mellitus. 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 She often gets very confused from her serum ammonia levels are high in the past. She is also receiving morphine immediate release 15 mg every 12 hours and oxycodone tablets intermittently for pain relief. This may be contributing to narcosis. Onset: Gradual Onset Date: 12/14/17 (Has been going downhill for the last week.) Duration: Day(s):, Constant, Getting Worse Location: Reports: Generalized (Decreased or altered level of consciousness being a difficult to swallow or Gatorade to drink or eat anything.) Quality: Reports: Other (Not seem to be in any pain.) Severity: Severe Improves with: Reports: None Worsens with: Reports: None Context: Reports: Other (In September and has not been able to walk since. It was not treated due to her elderly age and poor mental status.). Denies: Activity, Exercise, Lifting, Sick Contact, Trauma Associated Symptoms: Reports: Confusion, Cough, Fever/Chills, Loss of Appetite, Malaise, Nausea/Vomiting, Shortness of Breath, Weakness (Severe generalized weakness.). 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) - Related Data Allergies Allergy/AdvReac Type Severity Reaction Status Date / Time levofloxacin [From Levaquin] Allergy Anaphylactic Verified 12/22/17 00:13 Shock Home Meds: Home Meds Ergocalciferol (Vitamin D2) [Vitamin D2] 50,000 unit PO WEEKLY 06/23/17 [History ] Furosemide 20 mg PO DAILY 06/23/17 [History] Levothyroxine 25 mcg PO DAILY 06/23/17 [History] Pantoprazole Sodium 40 mg PO ACBREAKFAST 06/23/17 [History] Ranitidine HCl [Ranitidine] 300 mg PO BID 06/23/17 [History] Rifaximin [Xifaxan] 550 mg PO BID 06/23/17 [History] Sucralfate [Carafate] 1 gm PO QID PRN 06/23/17 [History] Ursodiol 250 mg PO BID 06/23/17 [History] Lactulose [Constulose] 20 gm PO BID 12/05/17 [History] L Acidophil/B Lactis/B Longum [Florajen3] 1 cap PO DAILY 12/21/17 [History] Morphine [MS Contin] 15 mg PO Q12H 12/21/17 [History] oxyCODONE 5 mg PO Q8H PRN 12/21/17 [History] traMADol [Ultram] 50 mg PO TID PRN 12/21/17 [History] Past Medical History HEENT History: Reports: Impaired Vision Cardiovascular History: Reports: CAD, Heart Failure, Hypertension, Pacemaker Gastrointestinal History: Reports: Cirrhosis, Gastritis, GI Bleed Genitourinary History: Reports: UTI, Recurrent 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: Psychiatric History: Reports: Depression Endocrine/Metabolic History: Reports: Diabetes, Type II Hematologic History: Reports: Anesthesia Reaction, Blood Transfusion(s) Other Hematologic History: Doesnt wake up from anesthesia - Infectious Disease History Infectious Disease History: Reports: Hepatitis C - Past Surgical History HEENT Surgical History: Reports: None Cardiovascular Surgical History: Reports: None GI Surgical History: Reports: None Female Surgical History: Reports: None Endocrine Surgical History: Reports: None Social & Family History - Family History Family Medical History: Noncontributory - Caffeine Use Caffeine Use: Reports: None - Living Situation & Occupation Living situation: Reports: Occupation: Retired ED ROS GENERAL - Review of Systems Review Of Systems: Unable To Obtain (Note patient is nonverbal.) Constitutional: Reports: Fever ED EXAM, NEURO - Physical Exam Exam: See Below Exam Limited By: Altered Mental Status (Stares off into space and is nonverbal.) General Appearance: Lethargic, Moderate Distress, Cachetic. No: Alert, WD/WN Eye Exam: Bilateral Eye: Normal Inspection (No jaundice.) Throat/Mouth: Normal Inspection, Normal Oropharynx, Other (Tongue is very dry and erythematous) Head Exam: Atraumatic, Normocephalic ( and shriveled.) Neck: Normal Inspection, Supple, Non-Tender, Full Range of Motion. No: Lymphadenopathy (L), Lymphadenopathy (R) Respiratory/Chest: No Respiratory Distress, No Accessory Muscle Use, Decreased Breath Sounds (Decreased breath sounds to both lower lung trent posteriorly due to very poor shallow inspirations. Respiratory is only 10. Sats are 94% on room air.). No: Rhonchi, Wheezing Cardiovascular: Normal Peripheral Pulses, Regular Rate, Rhythm, No Edema, No Gallop, Systolic Murmur (Question very early grade 1 systolic murmur left lower sternal border suggestive of aortic stenosis.) GI/Abdominal: Normal Bowel Sounds, Soft, Non-Tender, No Organomegaly, No Distention, No Abnormal Bruit, No Mass, Pelvis Stable, Other (No palpable masses. Soft palpation with no organomegaly or masses noted no ascites.) Neurological: Other (Disoriented due to a person and place.). No: Alert, Normal Mood/Affect, Normal Dorsiflexion, CN II-XII Intact, Normal Gait, Normal Reflexes, No Motor/Sensory Deficits, Oriented x 3 Back Exam: Normal Inspection, Other. No: Full Range of Motion, CVA Tenderness ( L) Extremities: Normal Inspection (Mild kyphosis thoracic spine), Non-Tender, No Pedal Edema Psychiatric: No: Normal Affect, Normal Mood Skin Exam: Warm, Dry, Intact, Normal Color, No Rash EKG INTERPRETATION EKG Date: 12/21/17 Time: 19:08 Rhythm: Other Rate (Beats/Min): 75 EKG Interpretation Comments: No further analysis attempted due to paced rhythm. Course - Vital Signs Last Recorded V/S: Last Vital Signs Temp 36.8 C 12/21/17 21:53 Pulse 82 12/21/17 21:53 Resp 12 12/21/17 21:53 BP 128/59 L 12/21/17 21:53 Pulse Ox 99 12/21/17 21:53 - Orders/Labs/Meds Orders: Active Orders 24 hr Category Date Time Status Blood Glucose Check, Bedside [RC] ONETIME Care 12/21/17 19:09 Active EKG Documentation Completion [RC] STAT Care 12/21/17 19:08 Active Chest 1V Frontal [CR] Stat Exams 12/21/17 19:08 Taken CULTURE BLOOD [BC] Stat Lab 12/21/17 19:10 Ordered CULTURE BLOOD [BC] Stat Lab 12/21/17 19:25 Received Blood Culture x2 Reflex Set [OM.PC] Stat Oth 12/21/17 19:10 Ordered Medication Orders Enoxaparin Sodium (Lovenox) 30 mg SUBCUT Q24H CHRISTIE Sodium Chloride (Normal Saline) 1,000 mls @ 100 mls/hr IV ASDIRECTED [facility] Last Admin: 12/21/17 22:28 Dose: 100 mls/hr Labs: Laboratory Tests 12/21/17 12/21/17 12/21/17 Range/Units 18:59 19:05 19:25 WBC 3.10 L (3.98-10.04) K/mm3 RBC 4.19 (3.98-5.22) M/mm3 Hgb 10.6 L (11.2-15.7) gm/L Hct 34.5 (34.1-44.9) % MCV 82.3 (79.4-94.8) fl MCH 25.3 L (25.6-32.2) pg MCHC 30.7 L (32.2-35.5) g/dl RDW Std Deviation 66.6 H (36.4-46.3) fL Plt Count 86 L (182-369) K/mm3 MPV 11.3 (9.4-12.3) fl Neutrophils % (Manual) 64 H (40-60) % Band Neutrophils % 0 (0-10) % Lymphocytes % (Manual) 27 (20-40) % Atypical Lymphs % 0 % Monocytes % (Manual) 6 (2-10) % Eosinophils % (Manual) 3 (0.7-5.8) % Basophils % (Manual) 0 L (0.1-1.2) Platelet Estimate Decreased Microcytosis 1+ slight Target Cells 1+ slight Tear Drop Cells 1+ slight RBC Morph Comment Not Reportable ESR (0-20) mm/hr PT (9.5-12.1) SECONDS INR Sodium (136-145) mEq/L Potassium (3.5-5.1) mEq/L Chloride (98-107) mEq/L Carbon Dioxide (21-32) mEq/L Anion Gap (5-15) BUN (7-18) mg/dL Creatinine (0.55-1.02) mg/dL Est Cr Clr Drug Dosing mL/min Estimated GFR (MDRD) (>60) mL/min BUN/Creatinine Ratio (14-18) Glucose (83-115) mg/dL POC Glucose 117 H (83-110) mg/dL Serum Osmolality (280-300) mosm/kg Lactic Acid (0.4-2.0) mmol/L Calcium (8.5-10.1) mg/dL Magnesium (1.8-2.4) mg/dl Total Bilirubin (0.2-1.0) mg/dL AST (15-37) U/L ALT (14-59) U/L Alkaline Phosphatase (46-116) U/L Ammonia (11-32) umol/L Creatine Kinase (26-192) U/L CK-MB (CK-2) (0-3.6) ng/ml Troponin I (0.00-0.056) ng/mL C-Reactive Protein (<1.0) mg/dL NT-Pro-B Natriuret Pep (0-450) pg/mL Total Protein (6.4-8.2) g/dl Albumin (3.4-5.0) g/dl Globulin gm/dL Albumin/Globulin Ratio (1-2) Urine Color Yellow (Yellow) Urine Appearance Clear (Clear) Urine pH 7.0 (5.0-8.0) Ur Specific [place] 1.020 (1.005-1.030) Urine Protein Negative (Negative) Urine Glucose (UA) Negative (Negative) Urine Ketones Negative (Negative) Urine Occult Blood Negative (Negative) Urine Nitrite Negative (Negative) Urine Bilirubin Negative (Negative) Urine Urobilinogen 1.0 (0.2-1.0) Ur Leukocyte Esterase Negative (Negative) Urine RBC 0-5 (0-5) /hpf Urine WBC 0-5 (0-5) /hpf Ur Epithelial Cells 0-5 (0-5) /hpf Urine Bacteria Many H (FEW) /hpf Urine Mucus Not seen (FEW) /hpf 12/21/17 12/21/17 12/21/17 Range/Units 19:25 19:25 19:25 WBC (3.98-10.04) K/mm3 RBC (3.98-5.22) M/mm3 Hgb (11.2-15.7) gm/L Hct (34.1-44.9) % MCV (79.4-94.8) fl MCH (25.6-32.2) pg MCHC (32.2-35.5) g/dl RDW Std Deviation (36.4-46.3) fL Plt Count (182-369) K/mm3 MPV (9.4-12.3) fl Neutrophils % (Manual) (40-60) % Band Neutrophils % (0-10) % Lymphocytes % (Manual) (20-40) % Atypical Lymphs % % Monocytes % (Manual) (2-10) % Eosinophils % (Manual) (0.7-5.8) % Basophils % (Manual) (0.1-1.2) Platelet Estimate Microcytosis Target Cells Tear Drop Cells RBC Morph Comment ESR 16 (0-20) mm/hr PT 15.6 H (9.5-12.1) SECONDS INR 1.44 Sodium 145 (136-145) mEq/L Potassium 3.6 (3.5-5.1) mEq/L Chloride 111 H (98-107) mEq/L Carbon Dioxide 25 (21-32) mEq/L Anion Gap 12.6 (5-15) BUN 9 (7-18) mg/dL Creatinine 1.0 (0.55-1.02) mg/dL Est Cr Clr Drug Dosing 33.30 mL/min Estimated GFR (MDRD) 54 (>60) mL/min BUN/Creatinine Ratio 9.0 L (14-18) Glucose 111 (83-115) mg/dL POC Glucose (83-110) mg/dL Serum Osmolality 297 (280-300) mosm/kg Lactic Acid (0.4-2.0) mmol/L Calcium 8.8 (8.5-10.1) mg/dL Magnesium 1.7 L (1.8-2.4) mg/dl Total Bilirubin 1.1 H (0.2-1.0) mg/dL AST 33 (15-37) U/L ALT 15 (14-59) U/L Alkaline Phosphatase 190 H (46-116) U/L Ammonia (11-32) umol/L Creatine Kinase 26 (26-192) U/L CK-MB (CK-2) < 0.5 (0-3.6) ng/ml Troponin I 0.119 H* (0.00-0.056) ng/mL C-Reactive Protein < 0.2 (<1.0) mg/dL NT-Pro-B Natriuret Pep (0-450) pg/mL Total Protein 6.1 L (6.4-8.2) g/dl Albumin 2.1 L (3.4-5.0) g/dl Globulin 4.0 gm/dL Albumin/Globulin Ratio 0.5 L (1-2) Urine Color (Yellow) Urine Appearance (Clear) Urine pH (5.0-8.0) Ur Specific [place] (1.005-1.030) Urine Protein (Negative) Urine Glucose (UA) (Negative) Urine Ketones (Negative) Urine Occult Blood (Negative) Urine Nitrite (Negative) Urine Bilirubin (Negative) Urine Urobilinogen (0.2-1.0) Ur Leukocyte Esterase (Negative) Urine RBC (0-5) /hpf Urine WBC (0-5) /hpf Ur Epithelial Cells (0-5) /hpf Urine Bacteria (FEW) /hpf Urine Mucus (FEW) /hpf 12/21/17 12/21/17 12/21/17 Range/Units 19:25 19:40 19:40 WBC (3.98-10.04) K/mm3 RBC (3.98-5.22) M/mm3 Hgb (11.2-15.7) gm/L Hct (34.1-44.9) % MCV (79.4-94.8) fl MCH (25.6-32.2) pg MCHC (32.2-35.5) g/dl RDW Std Deviation (36.4-46.3) fL Plt Count (182-369) K/mm3 MPV (9.4-12.3) fl Neutrophils % (Manual) (40-60) % Band Neutrophils % (0-10) % Lymphocytes % (Manual) (20-40) % Atypical Lymphs % % Monocytes % (Manual) (2-10) % Eosinophils % (Manual) (0.7-5.8) % Basophils % (Manual) (0.1-1.2) Platelet Estimate Microcytosis Target Cells Tear Drop Cells RBC Morph Comment ESR (0-20) mm/hr PT (9.5-12.1) SECONDS INR Sodium (136-145) mEq/L Potassium (3.5-5.1) mEq/L Chloride (98-107) mEq/L Carbon Dioxide (21-32) mEq/L Anion Gap (5-15) BUN (7-18) mg/dL Creatinine (0.55-1.02) mg/dL Est Cr Clr Drug Dosing mL/min Estimated GFR (MDRD) (>60) mL/min BUN/Creatinine Ratio (14-18) Glucose (83-115) mg/dL POC Glucose (83-110) mg/dL Serum Osmolality (280-300) mosm/kg Lactic Acid 2.0 (0.4-2.0) mmol/L Calcium (8.5-10.1) mg/dL Magnesium (1.8-2.4) mg/dl Total Bilirubin (0.2-1.0) mg/dL AST (15-37) U/L ALT (14-59) U/L Alkaline Phosphatase (46-116) U/L Ammonia 25 (11-32) umol/L Creatine Kinase (26-192) U/L CK-MB (CK-2) (0-3.6) ng/ml Troponin I (0.00-0.056) ng/mL C-Reactive Protein (<1.0) mg/dL NT-Pro-B Natriuret Pep 199 (0-450) pg/mL Total Protein (6.4-8.2) g/dl Albumin (3.4-5.0) g/dl Globulin gm/dL Albumin/Globulin Ratio (1-2) Urine Color (Yellow) Urine Appearance (Clear) Urine pH (5.0-8.0) Ur Specific [place] (1.005-1.030) Urine Protein (Negative) Urine Glucose (UA) (Negative) Urine Ketones (Negative) Urine Occult Blood (Negative) Urine Nitrite (Negative) Urine Bilirubin (Negative) Urine Urobilinogen (0.2-1.0) Ur Leukocyte Esterase (Negative) Urine RBC (0-5) /hpf Urine WBC (0-5) /hpf Ur Epithelial Cells (0-5) /hpf Urine Bacteria (FEW) /hpf Urine Mucus (FEW) /hpf Meds: Medications Generic Name Dose Route Start Last Admin Trade Name Freq PRN Reason Stop Dose Admin Enoxaparin Sodium 30 mg 12/22/17 09:00 Lovenox SUBCUT Q24H CHRISTIE Sodium Chloride 1,000 mls @ 100 mls/hr 12/21/17 22:15 12/21/17 22:28 Normal Saline IV 100 mls/hr ASDIRECTED CHRISTIE Administration Discontinued Medications Generic Name Dose Route Start Last Admin Trade Name Freq PRN Reason Stop Dose Admin Dextrose/Sodium Chloride 1,000 mls @ 999 mls/hr 12/21/17 19:15 12/21/17 20:35 Dextrose 5%-Normal Saline IV 125 mls/hr ASDIRECTED CHRISTIE Infusion Dextrose/Sodium Chloride 1,000 mls @ 125 mls/hr 12/21/17 20:45 Dextrose 5%-Normal Saline IV ASDIRECTED CHRISTIE Ondansetron HCl 4 mg 12/21/17 19:08 12/21/17 19:38 Zofran IVPUSH 12/21/17 19:09 4 mg ONETIME ONE Administration - Radiology Interpretation Free Text/Narrative:: 77-year-old female of Yi [place] descent presents to the ED with altered level of consciousness. Patient has multiple comorbidities including type 2 diabetes. Bedside blood sugar was 117. She hasn't ate or drank much at all for the last 2 days and did vomit once during the night. She's been bedridden since falling and breaking her hip in September of this year. She is known to have cirrhosis of liver from hepatitis C he likely contracted to a blood transfusion. She has had altered levels of consciousness related to his high serum ammonia levels in the past by the history. At present she is nonverbal staring off into space. She does try to base some commands such as opening her mouth limited look at her tongue. Vital signs are stable. She has a very slow respiratory rate of 10/m. Her entry to both lower lung trent. So appears to have this significant metabolic abnormalities with low-grade fever. Septic workup will be carried out. She has a DO NOT RESUSCITATE patient and therefore CT of the head will not be done at this time. - Re-Assessments/Exams Free Text/Narrative Re-Assessment/Exam: Labs are starting to come back. White count is normal at 3.10. Differential is pending. Hemoglobin is low at 10.6 with hematocrit of 34.5. MCV is 82.3. Bili count is low at 86,000. PT is 15.6 and INR is 1.44. ie she is autoanticoagulated anticoagulated due to her cirrhosis of the liver. Serum sodium is 145 potassium is 3.6. Cord 111. Bicarbonate is 25. And a gap is 12.6. BUN is 9 with a creatinine of 1.0. Assessment EGFR is 54. Glucose is 111. Serum osmolality is pending. Calcium is 8.8. Magnesium low normal at 1.7. Bilirubin 1.1. AST is 33 with an ALT of 15. Alkaline phosphatase to his elevated 190. Serum ammonia level is normal at 25. CPK is 26. CK-MB is 0.5. Troponin I is elevated at 0.119. Expect protein is less than 0.2. BNP is 199. Total protein is 6.1 with an albumin fraction low at 2.1. Urine is essentially normal with many bacteria seen but no signs of any pyuria. Therefore it is concerning that she may well have suffered a myocardial infarction recently. This cannot be identified on her ECG due to paced rhythm. I suspect that her major problem is no glucose is from recently starting morphine immediate release in combination with oxycodone tablets for pain relief. 12/21/17 20:[address] 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 Our suspicion is that she has received 2 much narcotic and is thus narcotize. Vital signs are stable at this point time and I do not see a need for aggressive management of suspected narcosis. Of note she may well of had a myocardial infarction with a troponin I of 0.119. Prognosis remains guarded. Chest x-ray done portably reveals mild cardiomegaly. There is a right perihilar infiltrate appears to be vascular. Pacemaker left upper anterior chest. No pleural effusions. Dr. Paulino is aware of the findings. She will take the patient into the hospital on [facility] surgery telemetry. Family made aware of possibility of patient having had a recent myocardial infarction which may compromise her edition in the next day or so. CODE STATUS is listed as DO NOT RESUSCITATE. Departure - Departure Time of Disposition: 21:45 Disposition: Admitted As Inpatient 66 Condition: Poor Clinical Impression: Adverse effects of medication Qualifiers: Encounter type: initial encounter Qualified Code(s): T50.905A - Adverse effect of unspecified drugs, medicaments and biological substances, initial encounter Acute myocardial infarction Qualifiers: Myocardial infarction type: non-ST elevation myocardial infarction Qualified Code(s): I21.4 - Non-ST elevation (NSTEMI) myocardial infarction - Discharge Information *PRESCRIPTION DRUG MONITORING PROGRAM REVIEWED*: Not Applicable *COPY OF PRESCRIPTION DRUG MONITORING REPORT IN PATIENT RAQUEL: Not Applicable - My Orders Last 24 Hours: My Active Orders 12/21/17 19:08 EKG Documentation Completion [RC] STAT Chest 1V Frontal [CR] Stat 12/21/17 19:09 Blood Glucose Check, Bedside [RC] ONETIME 12/21/17 19:10 CULTURE BLOOD [BC] Stat Blood Culture x2 Reflex Set [OM.PC] Stat 12/21/17 19:25 CULTURE BLOOD [BC] Stat - Assessment/Plan Last 24 Hours: My Active Orders 12/21/17 19:08 EKG Documentation Completion [RC] STAT Chest 1V Frontal [CR] Stat 12/21/17 19:09 Blood Glucose Check, Bedside [RC] ONETIME 12/21/17 19:10 CULTURE BLOOD [BC] Stat Blood Culture x2 Reflex Set [OM.PC] Stat 12/21/17 19:25 CULTURE BLOOD [BC] Stat
[2017-12-21] MEDS ORDERED: Dextrose 5%-0.9% NaCl 1,000 ML IV SCH ×2 (19:15→20:45)
[2017-12-21] MEDS: Sodium Chloride 0.9% 1,000 ML IV SCH (22:28)
[2017-12-22] MEDS ORDERED: Enoxaparin 30 MG/0.3 ML Syringe SUBCUT SCH (09:00)
--- NOTE | 2017-12-22 09:21 | PCM.HP ---
H&P History of Present Illness - General Date of Service: 12/21/17 Admit Problem/Dx: Admission Diagnosis/Problem Admission Diagnosis/Problem Altered mental status Source of Information: Provider History Limitations: Reports: No Limitations - History of Present Illness Initial Comments - Free Text/Narative: 77 year old female presented with altered mental status after having additional narcotic medication. This occurred after having an episode of emesis. Apparently there has been a gradual change in her level of consciousness, this reportedly has happened over 2-3 days. The patient lives at home with her family. She has been bed bound since her hip fracture in September 2017. She will be admitted to [place] with telemetry. The patient is a full code, however initially she was reportedly DNR/DNI. Onset of Symptoms: Reports: Gradual Symptom Onset Date: 12/19/17 Duration of Symptoms: Reports: Day(s):, Getting Worse Location: Reports: Generalized Quality: Reports: Same as Previous Episode Severity: Moderate Improves with: Reports: Medication Worsens with: Reports: None Associated Symptoms: Reports: Confusion, Cough, Fever/Chills, Malaise - Related Data Allergies/Adverse Reactions: Allergies Allergy/AdvReac Type Severity Reaction Status Date / Time levofloxacin [From Levaquin] Allergy Anaphylactic Verified 12/22/17 09:10 Shock Home Medications: Home Meds Ergocalciferol (Vitamin D2) [Vitamin D2] 50,000 unit PO WEEKLY 06/23/17 [History ] Furosemide 20 mg PO DAILY 06/23/17 [History] Levothyroxine 25 mcg PO DAILY 06/23/17 [History] Pantoprazole Sodium 40 mg PO ACBREAKFAST 06/23/17 [History] Ranitidine HCl [Ranitidine] 300 mg PO BID 06/23/17 [History] Rifaximin [Xifaxan] 550 mg PO BID 06/23/17 [History] Sucralfate [Carafate] 1 gm PO QID PRN 06/23/17 [History] Ursodiol 250 mg PO BID 06/23/17 [History] Lactulose [Constulose] 20 gm PO BID 12/05/17 [History] L Acidophil/B Lactis/B Longum [Florajen3] 1 cap PO DAILY 12/21/17 [History] Morphine [MS Contin] 15 mg PO Q12H 12/21/17 [History] oxyCODONE 5 mg PO Q8H PRN 12/21/17 [History] traMADol [Ultram] 50 mg PO TID PRN 12/21/17 [History] Past Medical History HEENT History: Reports: Impaired Vision Cardiovascular History: Reports: CAD, Heart Failure, Hypertension, Pacemaker Gastrointestinal History: Reports: Cirrhosis, Gastritis, GI Bleed Genitourinary History: Reports: UTI, Recurrent WOOL TAMPER History: Reports: Musculoskeletal History: Reports: None Psychiatric History: Reports: Depression Endocrine/Metabolic History: Reports: Diabetes, Type II Hematologic History: Reports: Anesthesia Reaction, Blood Transfusion(s) Other Hematologic History: Doesnt wake up from anesthesia - Infectious Disease History Infectious Disease History: 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 - Past Surgical History HEENT Surgical History: Reports: None Cardiovascular Surgical History: Reports: None GI Surgical History: Reports: None Female Surgical History: Reports: None Endocrine Surgical History: Reports: None Social & Family History - Family History Family Medical History: Noncontributory - Tobacco Use Smoking Status *Q: Never Smoker Second Hand Smoke Exposure: No - Caffeine Use Caffeine Use: Reports: None - Recreational Drug Use Recreational Drug Use: No - Living Situation & Occupation Living situation: Reports: Occupation: Retired H&P Review of Systems - Review of Systems: Review Of Systems: See Below General: Reports: Fever, Chills, Malaise, Weakness, Fatigue, Decreased Appetite HEENT: Reports: No Symptoms Pulmonary: Reports: Shortness of Breath Cardiovascular: Reports: No Symptoms Gastrointestinal: Reports: No Symptoms Genitourinary: Reports: No Symptoms Musculoskeletal: Reports: No Symptoms Skin: Reports: No Symptoms Psychiatric: Reports: Confusion Neurological: Reports: No Symptoms Hematologic/Lymphatic: Reports: No Symptoms Immunologic: Reports: No Symptoms Exam - Exam Exam: See Below - Vital Signs Vital Signs: Last Vital Signs Temp 37.2 C 12/22/17 03:06 Pulse 80 12/22/17 03:06 Resp 12 12/22/17 03:06 BP 113/42 L 12/22/17 03:06 Pulse Ox 95 12/22/17 03:06 Weight: 61.734 kg - Exam Quality Assessment: Supplemental Oxygen General: Lethargic HEENT: Pupils Equal, Pupils Reactive, PERRLA Neck: Trachea Midline Lungs: Normal Respiratory Effort, Decreased Breath Sounds Cardiovascular: Regular Rate, Regular Rhythm GI/Abdominal Exam: Normal Bowel Sounds, Soft, Non-Tender, No Distention (Female) Exam: Deferred Rectal (Female) Exam: Deferred Back Exam: Normal Inspection Extremities: Non-Tender, Slow Capillary Refill Skin: Warm Neurological: Cranial Nerves Intact Neuro Extensive - Mental Status: Other (lethargic) Neuro Extensive - Motor, Sensory, Reflexes: CN II-XII Intact - Patient Data Lab Results Last 24 hrs: Laboratory Results - last 24 hr 12/21/17 12/21/17 12/21/17 Range/Units 18:59 19:05 19:25 WBC 3.10 L (3.98-10.04) K/mm3 RBC 4.19 (3.98-5.22) M/mm3 Hgb 10.6 L (11.2-15.7) gm/L Hct 34.5 (34.1-44.9) % MCV 82.3 (79.4-94.8) fl MCH 25.3 L (25.6-32.2) pg MCHC 30.7 L (32.2-35.5) g/dl RDW Std Deviation 66.6 H (36.4-46.3) fL Plt Count 86 L (182-369) K/mm3 MPV 11.3 (9.4-12.3) fl Neut % (Auto) (34.0-71.1) % Lymph % (Auto) (19.3-51.7) % [place] % (Auto) (4.7-12.5) % Eos % (Auto) (0.7-5.8) Baso % (Auto) (0.1-1.2) % Neut # (Auto) (1.56-6.13) K/mm3 Lymph # (Auto) (1.18-3.74) K/mm3 [place] # (Auto) (0.24-0.36) K/mm3 Eos # (Auto) (0.04-0.36) K/mm3 Baso # (Auto) (0.01-0.08) K/mm3 Neutrophils % (Manual) 64 H (40-60) % Band Neutrophils % 0 (0-10) % Lymphocytes % (Manual) 27 (20-40) % Atypical Lymphs % 0 % Monocytes % (Manual) 6 (2-10) % Eosinophils % (Manual) 3 (0.7-5.8) % Basophils % (Manual) 0 L (0.1-1.2) Platelet Estimate Decreased Microcytosis 1+ slight Target Cells 1+ slight Tear Drop Cells 1+ slight RBC Morph Comment Not Reportable ESR (0-20) mm/hr PT (9.5-12.1) SECONDS INR Sodium (136-145) mEq/L Potassium (3.5-5.1) mEq/L Chloride (98-107) mEq/L Carbon Dioxide (21-32) mEq/L Anion Gap (5-15) BUN (7-18) mg/dL Creatinine (0.55-1.02) mg/dL Est Cr Clr Drug Dosing mL/min Estimated GFR (MDRD) (>60) mL/min BUN/Creatinine Ratio (14-18) Glucose (83-115) mg/dL POC Glucose 117 H (83-110) mg/dL Serum Osmolality (280-300) mosm/kg Lactic Acid (0.4-2.0) mmol/L Calcium (8.5-10.1) mg/dL Magnesium (1.8-2.4) mg/dl Total Bilirubin (0.2-1.0) mg/dL AST (15-37) U/L ALT (14-59) U/L Alkaline Phosphatase (46-116) U/L Ammonia (11-32) umol/L Creatine Kinase (26-192) U/L CK-MB (CK-2) (0-3.6) ng/ml Troponin I (0.00-0.056) ng/mL C-Reactive Protein (<1.0) mg/dL NT-Pro-B Natriuret Pep (0-450) pg/mL Total Protein (6.4-8.2) g/dl Albumin (3.4-5.0) g/dl Globulin gm/dL Albumin/Globulin Ratio (1-2) Urine Color Yellow (Yellow) Urine Appearance Clear (Clear) Urine pH 7.0 (5.0-8.0) Ur Specific [place] 1.020 (1.005-1.030) Urine Protein Negative (Negative) Urine Glucose (UA) Negative (Negative) Urine Ketones Negative (Negative) Urine Occult Blood Negative (Negative) Urine Nitrite Negative (Negative) Urine Bilirubin Negative (Negative) Urine Urobilinogen 1.0 (0.2-1.0) Ur Leukocyte Esterase Negative (Negative) Urine RBC 0-5 (0-5) /hpf Urine WBC 0-5 (0-5) /hpf Ur Epithelial Cells 0-5 (0-5) /hpf Urine Bacteria Many H (FEW) /hpf Urine Mucus Not seen (FEW) /hpf 12/21/17 12/21/17 12/21/17 Range/Units 19:25 19:25 19:25 WBC (3.98-10.04) K/mm3 RBC (3.98-5.22) M/mm3 Hgb (11.2-15.7) gm/L Hct (34.1-44.9) % MCV (79.4-94.8) fl MCH (25.6-32.2) pg MCHC (32.2-35.5) g/dl RDW Std Deviation (36.4-46.3) fL Plt Count (182-369) K/mm3 MPV (9.4-12.3) fl Neut % (Auto) (34.0-71.1) % Lymph % (Auto) (19.3-51.7) % [place] % (Auto) (4.7-12.5) % Eos % (Auto) (0.7-5.8) Baso % (Auto) (0.1-1.2) % Neut # (Auto) (1.56-6.13) K/mm3 Lymph # (Auto) (1.18-3.74) K/mm3 [place] # (Auto) (0.24-0.36) K/mm3 Eos # (Auto) (0.04-0.36) K/mm3 Baso # (Auto) (0.01-0.08) K/mm3 Neutrophils % (Manual) (40-60) % Band Neutrophils % (0-10) % Lymphocytes % (Manual) (20-40) % Atypical Lymphs % % Monocytes % (Manual) (2-10) % Eosinophils % (Manual) (0.7-5.8) % Basophils % (Manual) (0.1-1.2) Platelet Estimate Microcytosis Target Cells Tear Drop Cells RBC Morph Comment ESR 16 (0-20) mm/hr PT 15.6 H (9.5-12.1) SECONDS INR 1.44 Sodium 145 (136-145) mEq/L Potassium 3.6 (3.5-5.1) mEq/L Chloride 111 H (98-107) mEq/L Carbon Dioxide 25 (21-32) mEq/L Anion Gap 12.6 (5-15) BUN 9 (7-18) mg/dL Creatinine 1.0 (0.55-1.02) mg/dL Est Cr Clr Drug Dosing 33.30 mL/min Estimated GFR (MDRD) 54 (>60) mL/min BUN/Creatinine Ratio 9.0 L (14-18) Glucose 111 (83-115) mg/dL POC Glucose (83-110) mg/dL Serum Osmolality 297 (280-300) mosm/kg Lactic Acid (0.4-2.0) mmol/L Calcium 8.8 (8.5-10.1) mg/dL Magnesium 1.7 L (1.8-2.4) mg/dl Total Bilirubin 1.1 H (0.2-1.0) mg/dL AST 33 (15-37) U/L ALT 15 (14-59) U/L Alkaline Phosphatase 190 H (46-116) U/L Ammonia (11-32) umol/L Creatine Kinase 26 (26-192) U/L CK-MB (CK-2) < 0.5 (0-3.6) ng/ml Troponin I 0.119 H* (0.00-0.056) ng/mL C-Reactive Protein < 0.2 (<1.0) mg/dL NT-Pro-B Natriuret Pep (0-450) pg/mL Total Protein 6.1 L (6.4-8.2) g/dl Albumin 2.1 L (3.4-5.0) g/dl Globulin 4.0 gm/dL Albumin/Globulin Ratio 0.5 L (1-2) Urine Color (Yellow) Urine Appearance (Clear) Urine pH (5.0-8.0) Ur Specific [place] (1.005-1.030) Urine Protein (Negative) Urine Glucose (UA) (Negative) Urine Ketones (Negative) Urine Occult Blood (Negative) Urine Nitrite (Negative) Urine Bilirubin (Negative) Urine Urobilinogen (0.2-1.0) Ur Leukocyte Esterase (Negative) Urine RBC (0-5) /hpf Urine WBC (0-5) /hpf Ur Epithelial Cells (0-5) /hpf Urine Bacteria (FEW) /hpf Urine Mucus (FEW) /hpf 12/21/17 12/21/17 12/21/17 Range/Units 19:25 19:40 19:40 WBC (3.98-10.04) K/mm3 RBC (3.98-5.22) M/mm3 Hgb (11.2-15.7) gm/L Hct (34.1-44.9) % MCV (79.4-94.8) fl MCH (25.6-32.2) pg MCHC (32.2-35.5) g/dl RDW Std Deviation (36.4-46.3) fL Plt Count (182-369) K/mm3 MPV (9.4-12.3) fl Neut % (Auto) (34.0-71.1) % Lymph % (Auto) (19.3-51.7) % [place] % (Auto) (4.7-12.5) % Eos % (Auto) (0.7-5.8) Baso % (Auto) (0.1-1.2) % Neut # (Auto) (1.56-6.13) K/mm3 Lymph # (Auto) (1.18-3.74) K/mm3 [place] # (Auto) (0.24-0.36) K/mm3 Eos # (Auto) (0.04-0.36) K/mm3 Baso # (Auto) (0.01-0.08) K/mm3 Neutrophils % (Manual) (40-60) % Band Neutrophils % (0-10) % Lymphocytes % (Manual) (20-40) % Atypical Lymphs % % Monocytes % (Manual) (2-10) % Eosinophils % (Manual) (0.7-5.8) % Basophils % (Manual) (0.1-1.2) Platelet Estimate Microcytosis Target Cells Tear Drop Cells RBC Morph Comment ESR (0-20) mm/hr PT (9.5-12.1) SECONDS INR Sodium (136-145) mEq/L Potassium (3.5-5.1) mEq/L Chloride (98-107) mEq/L Carbon Dioxide (21-32) mEq/L Anion Gap (5-15) BUN (7-18) mg/dL Creatinine (0.55-1.02) mg/dL Est Cr Clr Drug Dosing mL/min Estimated GFR (MDRD) (>60) mL/min BUN/Creatinine Ratio (14-18) Glucose (83-115) mg/dL POC Glucose (83-110) mg/dL Serum Osmolality (280-300) mosm/kg Lactic Acid 2.0 (0.4-2.0) mmol/L Calcium (8.5-10.1) mg/dL Magnesium (1.8-2.4) mg/dl Total Bilirubin (0.2-1.0) mg/dL AST (15-37) U/L ALT (14-59) U/L Alkaline Phosphatase (46-116) U/L Ammonia 25 (11-32) umol/L Creatine Kinase (26-192) U/L CK-MB (CK-2) (0-3.6) ng/ml Troponin I (0.00-0.056) ng/mL C-Reactive Protein (<1.0) mg/dL NT-Pro-B Natriuret Pep 199 (0-450) pg/mL Total Protein (6.4-8.2) g/dl Albumin (3.4-5.0) g/dl Globulin gm/dL Albumin/Globulin Ratio (1-2) Urine Color (Yellow) Urine Appearance (Clear) Urine pH (5.0-8.0) Ur Specific [place] (1.005-1.030) Urine Protein (Negative) Urine Glucose (UA) (Negative) Urine Ketones (Negative) Urine Occult Blood (Negative) Urine Nitrite (Negative) Urine Bilirubin (Negative) Urine Urobilinogen (0.2-1.0) Ur Leukocyte Esterase (Negative) Urine RBC (0-5) /hpf Urine WBC (0-5) /hpf Ur Epithelial Cells (0-5) /hpf Urine Bacteria (FEW) /hpf Urine Mucus (FEW) /hpf 12/22/17 12/22/17 Range/Units 06:20 06:20 WBC 4.69 (3.98-10.04) K/mm3 RBC 4.21 (3.98-5.22) M/mm3 Hgb 10.7 L (11.2-15.7) gm/L Hct 35.1 (34.1-44.9) % MCV 83.4 (79.4-94.8) fl MCH 25.4 L (25.6-32.2) pg MCHC 30.5 L (32.2-35.5) g/dl RDW Std Deviation 67.6 H (36.4-46.3) fL Plt Count 100 L (182-369) K/mm3 MPV 10.9 (9.4-12.3) fl Neut % (Auto) 58.5 (34.0-71.1) % Lymph % (Auto) 23.0 (19.3-51.7) % [place] % (Auto) 14.7 H (4.7-12.5) % Eos % (Auto) 3.2 (0.7-5.8) Baso % (Auto) 0.6 (0.1-1.2) % Neut # (Auto) 2.74 (1.56-6.13) K/mm3 Lymph # (Auto) 1.08 L (1.18-3.74) K/mm3 [place] # (Auto) 0.69 H (0.24-0.36) K/mm3 Eos # (Auto) 0.15 (0.04-0.36) K/mm3 Baso # (Auto) 0.03 (0.01-0.08) K/mm3 Neutrophils % (Manual) (40-60) % Band Neutrophils % (0-10) % Lymphocytes % (Manual) (20-40) % Atypical Lymphs % % Monocytes % (Manual) (2-10) % Eosinophils % (Manual) (0.7-5.8) % Basophils % (Manual) (0.1-1.2) Platelet Estimate Microcytosis Target Cells Tear Drop Cells RBC Morph Comment ESR (0-20) mm/hr PT (9.5-12.1) SECONDS INR Sodium 144 (136-145) mEq/L Potassium 4.0 (3.5-5.1) mEq/L Chloride 112 H (98-107) mEq/L Carbon Dioxide 25 (21-32) mEq/L Anion Gap 11.0 (5-15) BUN 10 (7-18) mg/dL Creatinine 1.0 (0.55-1.02) mg/dL Est Cr Clr Drug Dosing 33.30 mL/min Estimated GFR (MDRD) 54 (>60) mL/min BUN/Creatinine Ratio 10.0 L (14-18) Glucose 90 (83-115) mg/dL POC Glucose (83-110) mg/dL Serum Osmolality (280-300) mosm/kg Lactic Acid (0.4-2.0) mmol/L Calcium 8.6 (8.5-10.1) mg/dL Magnesium 1.6 L (1.8-2.4) mg/dl Total Bilirubin (0.2-1.0) mg/dL AST (15-37) U/L ALT (14-59) U/L Alkaline Phosphatase (46-116) U/L Ammonia (11-32) umol/L Creatine Kinase (26-192) U/L CK-MB (CK-2) (0-3.6) ng/ml Troponin I 0.123 H* (0.00-0.056) ng/mL C-Reactive Protein (<1.0) mg/dL NT-Pro-B Natriuret Pep (0-450) pg/mL Total Protein (6.4-8.2) g/dl Albumin (3.4-5.0) g/dl Globulin gm/dL Albumin/Globulin Ratio (1-2) Urine Color (Yellow) Urine Appearance (Clear) Urine pH (5.0-8.0) Ur Specific [place] (1.005-1.030) Urine Protein (Negative) Urine Glucose (UA) (Negative) Urine Ketones (Negative) Urine Occult Blood (Negative) Urine Nitrite (Negative) Urine Bilirubin (Negative) Urine Urobilinogen (0.2-1.0) Ur Leukocyte Esterase (Negative) Urine RBC (0-5) /hpf Urine WBC (0-5) /hpf Ur Epithelial Cells (0-5) /hpf Urine Bacteria (FEW) /hpf Urine Mucus (FEW) /hpf Result Diagrams: 12/22/17 06:20 12/22/17 06:20 - Problem List (1) Adverse effects of medication SNOMED Code(s): 26482614 ICD Code: T50.905A - ADVERSE EFFECT OF UNSP DRUG/MEDS/BIOL SUBST, INIT Status: Acute Current Visit: Yes Qualifiers: Encounter type: initial encounter Qualified Code(s): T50.905A - Adverse effect of unspecified drugs, medicaments and biological substances, initial encounter (2) Altered mental status SNOMED Code(s): 981147416 ICD Code: R41.82 - ALTERED MENTAL STATUS, UNSPECIFIED Status: Acute Current Visit: No Qualifiers: Altered mental status type: stupor Qualified Code(s): R40.1 - Stupor (3) Confusion SNOMED Code(s): 953744819 ICD Code: R41.0 - DISORIENTATION, UNSPECIFIED Status: Acute Current Visit : No (4) Cirrhosis SNOMED Code(s): 54158936 ICD Code: K74.60 - UNSPECIFIED CIRRHOSIS OF LIVER Status: Chronic Priority: High Current Visit: No Qualifiers: Hepatic cirrhosis type: unspecified hepatic cirrhosis Ascites presence: with ascites Qualified Code(s): K74.60 - Unspecified cirrhosis of liver; R18.8 - Other ascites (5) Hepatitis C SNOMED Code(s): 46550067 ICD Code: B19.20 - UNSPECIFIED VIRAL HEPATITIS C WITHOUT HEPATIC COMA Status: Chronic Priority: Medium Current Visit: No Qualifiers: Viral hepatitis chronicity: chronic Hepatic coma status: without hepatic coma Qualified Code(s): B18.2 - Chronic viral hepatitis C (6) History of hip fracture SNOMED Code(s): 240460357 ICD Code: Z87.81 - PERSONAL HISTORY OF (HEALED) TRAUMATIC FRACTURE Status: Chronic Priority: Medium Current Visit: No Problem List Initiated/Reviewed/Updated: Yes Orders Last 24hrs: Active Orders 24 hr Category Date Time Status Patient Status [ADT] Routine ADT 12/21/17 20:56 Active EKG Documentation Completion [RC] STAT Care 12/21/17 19:08 Active Head of Bed Elevation [RC] 09,21 Care 12/21/17 22:11 Active Oxygen Therapy [RC] ASDIRECTED Care 12/21/17 22:19 Active NPO [Nothing Per Oral Diet] [DIET] Diet 12/22/17 Breakfast Active Chest 1V Frontal [CR] Stat Exams 12/21/17 19:08 Taken CULTURE BLOOD [BC] Stat Lab 12/21/17 19:25 Received CULTURE BLOOD [BC] Stat Lab 12/21/17 19:40 Received Enoxaparin [Lovenox] Med 12/22/17 09:00 Hold 30 mg SUBCUT Q24H Sodium Chloride 0.9% [Normal Saline] 1,000 ml Med 12/21/17 22:15 Active IV ASDIRECTED Blood Culture x2 Reflex Set [OM.PC] Stat Oth 12/21/17 19:10 Ordered RENEE Hose [Antiembolic Hose] [OM.PC] Routine Oth 12/21/17 22:15 Ordered Code Status [Resuscitation Status] Routine Resus Stat 12/22/17 08:06 Ordered Medication Orders Enoxaparin Sodium (Lovenox) 30 mg SUBCUT Q24H CHRISTIE Sodium Chloride (Normal Saline) 1,000 mls @ 100 mls/hr IV ASDIRECTED CHRISTIE Last Admin: 12/21/17 22:28 Dose: 100 mls/hr Assessment/Plan Comment:: Impression: Altered mental status likely narcotic induced Iatrogenic Unremarkable metabolic evaluation S/P left hip fracture, not repaired, bed bound Chronic CAD/Hx of NE HCV/Cirrhosis HTN S/P PPM Diabetes Mellitus type 2 CHF Plan: IVF NPO except meds Follow VS, stable without need to reverse narcotics Address code status, requires clarification Swallow eval at bedside Home meds Daily labs DVT/GI prophylaxis
[2017-12-22] MEDS ORDERED: Sucralfate Suspension 1 GM/10 ML Cup PO PRN (09:22)
[2017-12-22] MEDS: Levothyroxine 25 MCG Tab PO SCH (10:15)
[2017-12-22] MEDS: Rifaximin 550 MG Tab PO SCH ×2 (10:15→20:34)
[2017-12-22] MEDS: Pantoprazole 40 MG Tab.CR PO SCH (10:15)
[2017-12-22] MEDS: Lactulose Soln 10 GM/15 ML 30 ML UD Cup PO SCH ×2 (10:16→20:32)
[2017-12-22] MEDS: Sodium Chloride 0.9% 1,000 ML IV SCH ×2 (10:25→20:36)
--- NOTE | 2017-12-22 11:01 | CR ---
Chest: Portable view of the chest was obtained. Comparison: Prior chest x-ray of 12/05/17. Heart size is normal. Tortuous thoracic aorta is seen. Lung markings are mildly increased which appear chronic. No acute parenchymal change is seen. Slight blunting of the lateral left costophrenic angle is seen which is chronic. Pacemaker is noted. TIPS stent is seen within the upper right abdomen. Bony structures are osteopenic. Impression: 1. Incidental findings which are stable. Nothing acute is appreciated on portable chest x-ray. Diagnostic code #2
[2017-12-22] MEDS ORDERED: Magnesium Sulfate/Water 4 GM in Premix Bag 1 BAG IV ONE (11:45)
[2017-12-22] MEDS: Enoxaparin 30 MG/0.3 ML Syringe SUBCUT SCH (12:16)
--- NOTE | 2017-12-22 17:00 | PCM.PN ---
- General Info Date of Service: 12/22/17 Subjective Update: Patient is awake, and no longer lethargic. Diet will be advanced to clear liquids. Functional Status: Reports: Pain Controlled - Review of Systems General: Reports: Weakness HEENT: Reports: No Symptoms Pulmonary: Reports: No Symptoms Cardiovascular: Reports: No Symptoms Gastrointestinal: Reports: No Symptoms Genitourinary: Reports: No Symptoms Musculoskeletal: Reports: No Symptoms Skin: Reports: No Symptoms Neurological: Reports: No Symptoms Psychiatric: Reports: No Symptoms - Patient Data Vitals - Most Recent: Last Vital Signs Temp 37.1 C 12/22/17 16:19 Pulse 69 12/22/17 16:19 Resp 16 12/22/17 16:19 BP 121/96 H 12/22/17 16:19 Pulse Ox 97 12/22/17 16:19 Weight - Most Recent: 61.734 kg I&O - Last 24 Hours: Intake & Output 12/22/17 12/22/17 12/22/17 06:59 14:59 22:59 Intake Total 15 370 1645 Output Total 0 Balance 15 370 1645 Lab Results Last 24 Hours: Laboratory Results - last 24 hr 12/21/17 12/21/17 12/21/17 Range/Units 18:59 19:05 19:25 WBC 3.10 L (3.98-10.04) K/mm3 RBC 4.19 (3.98-5.22) M/mm3 Hgb 10.6 L (11.2-15.7) gm/L Hct 34.5 (34.1-44.9) % MCV 82.3 (79.4-94.8) fl MCH 25.3 L (25.6-32.2) pg MCHC 30.7 L (32.2-35.5) g/dl RDW Std Deviation 66.6 H (36.4-46.3) fL Plt Count 86 L (182-369) K/mm3 MPV 11.3 (9.4-12.3) fl Neut % (Auto) (34.0-71.1) % Lymph % (Auto) (19.3-51.7) % [place] % (Auto) (4.7-12.5) % Eos % (Auto) (0.7-5.8) Baso % (Auto) (0.1-1.2) % Neut # (Auto) (1.56-6.13) K/mm3 Lymph # (Auto) (1.18-3.74) K/mm3 [place] # (Auto) (0.24-0.36) K/mm3 Eos # (Auto) (0.04-0.36) K/mm3 Baso # (Auto) (0.01-0.08) K/mm3 Neutrophils % (Manual) 64 H (40-60) % Band Neutrophils % 0 (0-10) % Lymphocytes % (Manual) 27 (20-40) % Atypical Lymphs % 0 % Monocytes % (Manual) 6 (2-10) % Eosinophils % (Manual) 3 (0.7-5.8) % Basophils % (Manual) 0 L (0.1-1.2) Platelet Estimate Decreased Microcytosis 1+ slight Target Cells 1+ slight Tear Drop Cells 1+ slight RBC Morph Comment Not Reportable ESR (0-20) mm/hr PT (9.5-12.1) SECONDS INR Sodium (136-145) mEq/L Potassium (3.5-5.1) mEq/L Chloride (98-107) mEq/L Carbon Dioxide (21-32) mEq/L Anion Gap (5-15) BUN (7-18) mg/dL Creatinine (0.55-1.02) mg/dL Est Cr Clr Drug Dosing mL/min Estimated GFR (MDRD) (>60) mL/min BUN/Creatinine Ratio (14-18) Glucose (83-115) mg/dL POC Glucose 117 H (83-110) mg/dL Serum Osmolality (280-300) mosm/kg Lactic Acid (0.4-2.0) mmol/L Calcium (8.5-10.1) mg/dL Magnesium (1.8-2.4) mg/dl Total Bilirubin (0.2-1.0) mg/dL AST (15-37) U/L ALT (14-59) U/L Alkaline Phosphatase (46-116) U/L Ammonia (11-32) umol/L Creatine Kinase (26-192) U/L CK-MB (CK-2) (0-3.6) ng/ml Troponin I (0.00-0.056) ng/mL C-Reactive Protein (<1.0) mg/dL NT-Pro-B Natriuret Pep (0-450) pg/mL Total Protein (6.4-8.2) g/dl Albumin (3.4-5.0) g/dl Globulin gm/dL Albumin/Globulin Ratio (1-2) Urine Color Yellow (Yellow) Urine Appearance Clear (Clear) Urine pH 7.0 (5.0-8.0) Ur Specific Tolstoy 1.020 (1.005-1.030) Urine Protein Negative (Negative) Urine Glucose (UA) Negative (Negative) Urine Ketones Negative (Negative) Urine Occult Blood Negative (Negative) Urine Nitrite Negative (Negative) Urine Bilirubin Negative (Negative) Urine Urobilinogen 1.0 (0.2-1.0) Ur Leukocyte Esterase Negative (Negative) Urine RBC 0-5 (0-5) /hpf Urine WBC 0-5 (0-5) /hpf Ur Epithelial Cells 0-5 (0-5) /hpf Urine Bacteria Many H (FEW) /hpf Urine Mucus Not seen (FEW) /hpf 12/21/17 12/21/17 12/21/17 Range/Units 19:25 19:25 19:25 WBC (3.98-10.04) K/mm3 RBC (3.98-5.22) M/mm3 Hgb (11.2-15.7) gm/L Hct (34.1-44.9) % MCV (79.4-94.8) fl MCH (25.6-32.2) pg MCHC (32.2-35.5) g/dl RDW Std Deviation (36.4-46.3) fL Plt Count (182-369) K/mm3 MPV (9.4-12.3) fl Neut % (Auto) (34.0-71.1) % Lymph % (Auto) (19.3-51.7) % [place] % (Auto) (4.7-12.5) % Eos % (Auto) (0.7-5.8) Baso % (Auto) (0.1-1.2) % Neut # (Auto) (1.56-6.13) K/mm3 Lymph # (Auto) (1.18-3.74) K/mm3 [place] # (Auto) (0.24-0.36) K/mm3 Eos # (Auto) (0.04-0.36) K/mm3 Baso # (Auto) (0.01-0.08) K/mm3 Neutrophils % (Manual) (40-60) % Band Neutrophils % (0-10) % Lymphocytes % (Manual) (20-40) % Atypical Lymphs % % Monocytes % (Manual) (2-10) % Eosinophils % (Manual) (0.7-5.8) % Basophils % (Manual) (0.1-1.2) Platelet Estimate Microcytosis Target Cells Tear Drop Cells RBC Morph Comment ESR 16 (0-20) mm/hr PT 15.6 H (9.5-12.1) SECONDS INR 1.44 Sodium 145 (136-145) mEq/L Potassium 3.6 (3.5-5.1) mEq/L Chloride 111 H (98-107) mEq/L Carbon Dioxide 25 (21-32) mEq/L Anion Gap 12.6 (5-15) BUN 9 (7-18) mg/dL Creatinine 1.0 (0.55-1.02) mg/dL Est Cr Clr Drug Dosing 33.30 mL/min Estimated GFR (MDRD) 54 (>60) mL/min BUN/Creatinine Ratio 9.0 L (14-18) Glucose 111 (83-115) mg/dL POC Glucose (83-110) mg/dL Serum Osmolality 297 (280-300) mosm/kg Lactic Acid (0.4-2.0) mmol/L Calcium 8.8 (8.5-10.1) mg/dL Magnesium 1.7 L (1.8-2.4) mg/dl Total Bilirubin 1.1 H (0.2-1.0) mg/dL AST 33 (15-37) U/L ALT 15 (14-59) U/L Alkaline Phosphatase 190 H (46-116) U/L Ammonia (11-32) umol/L Creatine Kinase 26 (26-192) U/L CK-MB (CK-2) < 0.5 (0-3.6) ng/ml Troponin I 0.119 H* (0.00-0.056) ng/mL C-Reactive Protein < 0.2 (<1.0) mg/dL NT-Pro-B Natriuret Pep (0-450) pg/mL Total Protein 6.1 L (6.4-8.2) g/dl Albumin 2.1 L (3.4-5.0) g/dl Globulin 4.0 gm/dL Albumin/Globulin Ratio 0.5 L (1-2) Urine Color (Yellow) Urine Appearance (Clear) Urine pH (5.0-8.0) Ur Specific Tolstoy (1.005-1.030) Urine Protein (Negative) Urine Glucose (UA) (Negative) Urine Ketones (Negative) Urine Occult Blood (Negative) Urine Nitrite (Negative) Urine Bilirubin (Negative) Urine Urobilinogen (0.2-1.0) Ur Leukocyte Esterase (Negative) Urine RBC (0-5) /hpf Urine WBC (0-5) /hpf Ur Epithelial Cells (0-5) /hpf Urine Bacteria (FEW) /hpf Urine Mucus (FEW) /hpf 12/21/17 12/21/17 12/21/17 Range/Units 19:25 19:40 19:40 WBC (3.98-10.04) K/mm3 RBC (3.98-5.22) M/mm3 Hgb (11.2-15.7) gm/L Hct (34.1-44.9) % MCV (79.4-94.8) fl MCH (25.6-32.2) pg MCHC (32.2-35.5) g/dl RDW Std Deviation (36.4-46.3) fL Plt Count (182-369) K/mm3 MPV (9.4-12.3) fl Neut % (Auto) (34.0-71.1) % Lymph % (Auto) (19.3-51.7) % [place] % (Auto) (4.7-12.5) % Eos % (Auto) (0.7-5.8) Baso % (Auto) (0.1-1.2) % Neut # (Auto) (1.56-6.13) K/mm3 Lymph # (Auto) (1.18-3.74) K/mm3 [place] # (Auto) (0.24-0.36) K/mm3 Eos # (Auto) (0.04-0.36) K/mm3 Baso # (Auto) (0.01-0.08) K/mm3 Neutrophils % (Manual) (40-60) % Band Neutrophils % (0-10) % Lymphocytes % (Manual) (20-40) % Atypical Lymphs % % Monocytes % (Manual) (2-10) % Eosinophils % (Manual) (0.7-5.8) % Basophils % (Manual) (0.1-1.2) Platelet Estimate Microcytosis Target Cells Tear Drop Cells RBC Morph Comment ESR (0-20) mm/hr PT (9.5-12.1) SECONDS INR Sodium (136-145) mEq/L Potassium (3.5-5.1) mEq/L Chloride (98-107) mEq/L Carbon Dioxide (21-32) mEq/L Anion Gap (5-15) BUN (7-18) mg/dL Creatinine (0.55-1.02) mg/dL Est Cr Clr Drug Dosing mL/min Estimated GFR (MDRD) (>60) mL/min BUN/Creatinine Ratio (14-18) Glucose (83-115) mg/dL POC Glucose (83-110) mg/dL Serum Osmolality (280-300) mosm/kg Lactic Acid 2.0 (0.4-2.0) mmol/L Calcium (8.5-10.1) mg/dL Magnesium (1.8-2.4) mg/dl Total Bilirubin (0.2-1.0) mg/dL AST (15-37) U/L ALT (14-59) U/L Alkaline Phosphatase (46-116) U/L Ammonia 25 (11-32) umol/L Creatine Kinase (26-192) U/L CK-MB (CK-2) (0-3.6) ng/ml Troponin I (0.00-0.056) ng/mL C-Reactive Protein (<1.0) mg/dL NT-Pro-B Natriuret Pep 199 (0-450) pg/mL Total Protein (6.4-8.2) g/dl Albumin (3.4-5.0) g/dl Globulin gm/dL Albumin/Globulin Ratio (1-2) Urine Color (Yellow) Urine Appearance (Clear) Urine pH (5.0-8.0) Ur Specific Tolstoy (1.005-1.030) Urine Protein (Negative) Urine Glucose (UA) (Negative) Urine Ketones (Negative) Urine Occult Blood (Negative) Urine Nitrite (Negative) Urine Bilirubin (Negative) Urine Urobilinogen (0.2-1.0) Ur Leukocyte Esterase (Negative) Urine RBC (0-5) /hpf Urine WBC (0-5) /hpf Ur Epithelial Cells (0-5) /hpf Urine Bacteria (FEW) /hpf Urine Mucus (FEW) /hpf 12/22/17 12/22/17 Range/Units 06:20 06:20 WBC 4.69 (3.98-10.04) K/mm3 RBC 4.21 (3.98-5.22) M/mm3 Hgb 10.7 L (11.2-15.7) gm/L Hct 35.1 (34.1-44.9) % MCV 83.4 (79.4-94.8) fl MCH 25.4 L (25.6-32.2) pg MCHC 30.5 L (32.2-35.5) g/dl RDW Std Deviation 67.6 H (36.4-46.3) fL Plt Count 100 L (182-369) K/mm3 MPV 10.9 (9.4-12.3) fl Neut % (Auto) 58.5 (34.0-71.1) % Lymph % (Auto) 23.0 (19.3-51.7) % [place] % (Auto) 14.7 H (4.7-12.5) % Eos % (Auto) 3.2 (0.7-5.8) Baso % (Auto) 0.6 (0.1-1.2) % Neut # (Auto) 2.74 (1.56-6.13) K/mm3 Lymph # (Auto) 1.08 L (1.18-3.74) K/mm3 [place] # (Auto) 0.69 H (0.24-0.36) K/mm3 Eos # (Auto) 0.15 (0.04-0.36) K/mm3 Baso # (Auto) 0.03 (0.01-0.08) K/mm3 Neutrophils % (Manual) (40-60) % Band Neutrophils % (0-10) % Lymphocytes % (Manual) (20-40) % Atypical Lymphs % % Monocytes % (Manual) (2-10) % Eosinophils % (Manual) (0.7-5.8) % Basophils % (Manual) (0.1-1.2) Platelet Estimate Microcytosis Target Cells Tear Drop Cells RBC Morph Comment ESR (0-20) mm/hr PT (9.5-12.1) SECONDS INR Sodium 144 (136-145) mEq/L Potassium 4.0 (3.5-5.1) mEq/L Chloride 112 H (98-107) mEq/L Carbon Dioxide 25 (21-32) mEq/L Anion Gap 11.0 (5-15) BUN 10 (7-18) mg/dL Creatinine 1.0 (0.55-1.02) mg/dL Est Cr Clr Drug Dosing 33.30 mL/min Estimated GFR (MDRD) 54 (>60) mL/min BUN/Creatinine Ratio 10.0 L (14-18) Glucose 90 (83-115) mg/dL POC Glucose (83-110) mg/dL Serum Osmolality (280-300) mosm/kg Lactic Acid (0.4-2.0) mmol/L Calcium 8.6 (8.5-10.1) mg/dL Magnesium 1.6 L (1.8-2.4) mg/dl Total Bilirubin (0.2-1.0) mg/dL AST (15-37) U/L ALT (14-59) U/L Alkaline Phosphatase (46-116) U/L Ammonia (11-32) umol/L Creatine Kinase (26-192) U/L CK-MB (CK-2) (0-3.6) ng/ml Troponin I 0.123 H* (0.00-0.056) ng/mL C-Reactive Protein (<1.0) mg/dL NT-Pro-B Natriuret Pep (0-450) pg/mL Total Protein (6.4-8.2) g/dl Albumin (3.4-5.0) g/dl Globulin gm/dL Albumin/Globulin Ratio (1-2) Urine Color (Yellow) Urine Appearance (Clear) Urine pH (5.0-8.0) Ur Specific Tolstoy (1.005-1.030) Urine Protein (Negative) Urine Glucose (UA) (Negative) Urine Ketones (Negative) Urine Occult Blood (Negative) Urine Nitrite (Negative) Urine Bilirubin (Negative) Urine Urobilinogen (0.2-1.0) Ur Leukocyte Esterase (Negative) Urine RBC (0-5) /hpf Urine WBC (0-5) /hpf Ur Epithelial Cells (0-5) /hpf Urine Bacteria (FEW) /hpf Urine Mucus (FEW) /hpf Med Orders - Current: Current Medications Enoxaparin Sodium (Lovenox) 30 mg SUBCUT Q24H [facility] Last Admin: 12/22/17 12:16 Dose: 30 mg Famotidine (Pepcid) 20 mg PO BID [facility] Furosemide (Lasix) 20 mg PO DAILY [facility] Sodium Chloride (Normal Saline) 1,000 mls @ 100 mls/hr IV ASDIRECTED [facility] Last Admin: 12/22/17 10:25 Dose: 100 mls/hr Lactulose (Cephulac) 20 gm PO BID [facility] Last Admin: 12/22/17 10:16 Dose: 20 gm Levothyroxine Sodium (Levothyroxine) 25 mcg PO DAILY@0600 [facility] Last Admin: 12/22/17 10:15 Dose: 25 mcg Pantoprazole Sodium (Protonix) 40 mg PO ACBREAKFAST [facility] Last Admin: 12/22/17 10:15 Dose: 40 mg Ursodiol 250 Mg 0 each PO BID [facility] Last Admin: 12/22/17 10:17 Dose: Not Given Rifaximin (Xifaxan) 550 mg PO BID [facility] Last Admin: 12/22/17 10:15 Dose: 550 mg Saccharomyces Boulardii (Florastor) 250 mg PO DAILY [facility] Sucralfate (Carafate) 1 gm PO QID PRN PRN Reason: Abdominal Pain Tramadol HCl (Ultram) 50 mg PO TID PRN PRN Reason: Pain Discontinued Medications Enoxaparin Sodium (Lovenox) 30 mg SUBCUT Q24H [facility] Dextrose/Sodium Chloride (Dextrose 5%-Normal Saline) 1,000 mls @ 999 mls/hr IV ASDIRECTED [facility] Last Infusion: 12/21/17 20:35 Dose: 125 mls/hr Dextrose/Sodium Chloride (Dextrose 5%-Normal Saline) 1,000 mls @ 125 mls/hr IV ASDIRECTED [facility] Magnesium Sulfate 4 gm/ Premix 100 mls @ 25 mls/hr IV ONETIME ONE Stop: 12/22/17 15:44 Last Admin: 12/22/17 12:15 Dose: 25 mls/hr Ondansetron HCl (Zofran) 4 mg IVPUSH ONETIME ONE Stop: 12/21/17 19:09 Last Admin: 12/21/17 19:38 Dose: 4 mg - Exam Quality Assessment: DVT Prophylaxis General: Alert, Cooperative, No Acute Distress HEENT: Pupils Equal, Pupils Reactive, EOMI Neck: Trachea Midline, No JVD Lungs: Normal Respiratory Effort Cardiovascular: Regular Rate, Regular Rhythm GI/Abdominal Exam: Normal Bowel Sounds, Soft, Non-Tender (Female) Exam: Deferred Back Exam: Normal Inspection Extremities: Normal Inspection, Normal Capillary Refill Skin: Warm Neurological: No New Focal Deficit Psy/Mental Status: Alert - Problem List & Annotations (1) Adverse effects of medication SNOMED Code(s): 32649487 Code(s): T50.905A - ADVERSE EFFECT OF UNSP DRUG/MEDS/BIOL SUBST, INIT Status: Acute Current Visit: Yes Qualifiers: Encounter type: initial encounter Qualified Code(s): T50.905A - Adverse effect of unspecified drugs, medicaments and biological substances, initial encounter (2) Altered mental status SNOMED Code(s): 179483098 Code(s): R41.82 - ALTERED MENTAL STATUS, UNSPECIFIED Status: Acute Current Visit: No Qualifiers: Altered mental status type: stupor Qualified Code(s): R40.1 - Stupor (3) Confusion SNOMED Code(s): 588897431 Code(s): R41.0 - DISORIENTATION, UNSPECIFIED Status: Acute Current Visit : No (4) Cirrhosis SNOMED Code(s): 02944483 Code(s): K74.60 - UNSPECIFIED CIRRHOSIS OF LIVER Status: Chronic Priority : High Current Visit: No Qualifiers: Hepatic cirrhosis type: unspecified hepatic cirrhosis Ascites presence: with ascites Qualified Code(s): K74.60 - Unspecified cirrhosis of liver; R18.8 - Other ascites (5) Hepatitis C SNOMED Code(s): 11416057 Code(s): B19.20 - UNSPECIFIED VIRAL HEPATITIS C WITHOUT HEPATIC COMA Status : Chronic Priority: Medium Current Visit: No Qualifiers: Viral hepatitis chronicity: chronic Hepatic coma status: without hepatic coma Qualified Code(s): B18.2 - Chronic viral hepatitis C (6) History of hip fracture SNOMED Code(s): 035629054 Code(s): Z87.81 - PERSONAL HISTORY OF (HEALED) TRAUMATIC FRACTURE Status: Chronic Priority: Medium Current Visit: No - Problem List Review Problem List Initiated/Reviewed/Updated: Yes - My Orders Last 24 Hours: My Active Orders 12/21/17 22:11 Head of Bed Elevation [RC] ,21 12/21/17 22:15 Sodium Chloride 0.9% [Normal Saline] 1,000 ml IV ASDIRECTED RENEE Hose [Antiembolic Hose] [OM.PC] Routine 12/21/17 22:19 Oxygen Therapy [RC] ASDIRECTED 12/22/17 08:06 Code Status [Resuscitation Status] Routine 12/22/17 09:22 Pantoprazole [ProTONIX] 40 mg PO ACBREAKFAST Sucralfate [Carafate] 1 gm PO QID PRN traMADol [Ultram] 50 mg PO TID PRN 12/22/17 09:30 Lactulose [Cephulac] 20 gm PO BID Levothyroxine 25 mcg PO DAILY@0600 Patient's Own Medication [Ptom] 0 each PO BID Rifaximin [Xifaxan] 550 mg PO BID 12/22/17 12:00 Enoxaparin [Lovenox] 30 mg SUBCUT Q24H 12/22/17 21:00 Famotidine [Pepcid] 20 mg PO BID 12/22/17 Lunch Clear Liquid Diet [DIET] 12/23/17 09:00 Furosemide [Lasix] 20 mg PO DAILY Saccharomyces Boulardii [Florastor] 250 mg PO DAILY - Plan Plan:: Impression: Altered mental status likely narcotic induced Iatrogenic Unremarkable metabolic evaluation S/P left hip fracture, not repaired, bed bound Chronic CAD/Hx of ID HCV/Cirrhosis HTN S/P PPM Diabetes Mellitus type 2 CHF Plan: IVF Advance diet as tolerated Hold narcotics Address code status, requires clarification Home meds Daily labs DVT/GI prophylaxis
[2017-12-22] MEDS: traMADol 50 MG Tab PO PRN (18:42)
[2017-12-22] MEDS: Famotidine 20 MG Tab PO SCH (20:35)
[2017-12-23] MEDS: traMADol 50 MG Tab PO PRN ×3 (04:25→20:24)
[2017-12-23] MEDS: Pantoprazole 40 MG Tab.CR PO SCH (06:26)
[2017-12-23] MEDS: Levothyroxine 25 MCG Tab PO SCH (06:26)
[2017-12-23] MEDS: Sodium Chloride 0.9% 1,000 ML IV SCH (06:27)
[2017-12-23] MEDS ORDERED: Saccharomyces Boulardii (Probiotic) 250 MG Cap PO SCH (09:00)
[2017-12-23] MEDS: Lactulose Soln 10 GM/15 ML 30 ML UD Cup PO SCH ×2 (09:29→20:24)
[2017-12-23] MEDS: Furosemide 20 MG Tab PO SCH (09:30)
[2017-12-23] MEDS: Rifaximin 550 MG Tab PO SCH ×2 (09:30→20:24)
[2017-12-23] MEDS: Famotidine 20 MG Tab PO SCH (09:30)
[2017-12-23] MEDS ORDERED: Magnesium Sulfate/Water 4 GM in Premix Bag 1 BAG IV ONE (09:50)
[2017-12-23] MEDS: Enoxaparin 30 MG/0.3 ML Syringe SUBCUT SCH (12:18)
--- NOTE | 2017-12-23 16:57 | PCM.PN ---
- General Info Date of Service: 12/23/17 Admission Dx/Problem (Free Text): Admission Diagnosis/Problem Admission Diagnosis/Problem Altered mental status Subjective Update: In to see Radha. She is laying comfortably in bed. She is A+O x2, not oriented to time. She says she is feeling better, but is still having some diarrhea. Will up her dose of Florastor from once daily to twice daily. She is pivot/transfer x2 d/t previous L hip fracture back in 09/2017, has been bed bound since- will make sure she starts working with PT/OT. She is incontinent but is urinating. Advancing from clear liquid diet to Heart Healthy diet today as her appetite is returning. No other concerns from nursing. She will most likely by d/c'd tomorrow pending clinical disposition. Functional Status: Reports: Pain Controlled, Tolerating Diet, Urinating - Review of Systems General: Reports: No Symptoms. Denies: Fever, Chills HEENT: Reports: No Symptoms Pulmonary: Reports: No Symptoms. Denies: Shortness of Breath Cardiovascular: Reports: No Symptoms. Denies: Chest Pain Gastrointestinal: Reports: Diarrhea. Denies: Constipation, Nausea, Vomiting Genitourinary: Reports: No Symptoms. Denies: Dysuria, Frequency, Burning, Pain , Urgency Musculoskeletal: Reports: No Symptoms Skin: Reports: No Symptoms Neurological: Reports: Confusion (A+O x2) Psychiatric: Reports: Confusion (A+O x2) - Patient Data Vitals - Most Recent: Last Vital Signs Temp 98.1 F 12/23/17 14:21 Pulse 65 12/23/17 14:21 Resp 16 12/23/17 14:21 BP 139/71 12/23/17 14:21 Pulse Ox 99 12/23/17 14:21 Weight - Most Recent: 137 lb I&O - Last 24 Hours: Intake & Output 12/23/17 12/23/17 12/23/17 06:59 14:59 22:59 Intake Total 988 320 500 Balance 988 320 500 Lab Results Last 24 Hours: Laboratory Results - last 24 hr 12/23/17 12/23/17 Range/Units 13:41 13:41 WBC 2.36 L* (3.98-10.04) K/mm3 RBC 3.57 L (3.98-5.22) M/mm3 Hgb 9.0 L (11.2-15.7) gm/L Hct 29.7 L (34.1-44.9) % MCV 83.2 (79.4-94.8) fl MCH 25.2 L (25.6-32.2) pg MCHC 30.3 L (32.2-35.5) g/dl RDW Std Deviation 65.8 H (36.4-46.3) fL Plt Count 70 L (182-369) K/mm3 MPV 11.4 (9.4-12.3) fl Neut % (Auto) 49.2 (34.0-71.1) % Lymph % (Auto) 28.4 (19.3-51.7) % Cobb % (Auto) 16.1 H (4.7-12.5) % Eos % (Auto) 5.5 (0.7-5.8) Baso % (Auto) 0.8 (0.1-1.2) % Neut # (Auto) 1.16 L (1.56-6.13) K/mm3 Lymph # (Auto) 0.67 L (1.18-3.74) K/mm3 Cobb # (Auto) 0.38 H (0.24-0.36) K/mm3 Eos # (Auto) 0.13 (0.04-0.36) K/mm3 Baso # (Auto) 0.02 (0.01-0.08) K/mm3 Manual Slide Review Abnormal smear Sodium 142 (136-145) mEq/L Potassium 3.2 L (3.5-5.1) mEq/L Chloride 112 H (98-107) mEq/L Carbon Dioxide 20 L (21-32) mEq/L Anion Gap 13.2 (5-15) BUN 10 (7-18) mg/dL Creatinine 0.9 (0.55-1.02) mg/dL Est Cr Clr Drug Dosing 37.00 mL/min Estimated GFR (MDRD) > 60 (>60) mL/min BUN/Creatinine Ratio 11.1 L (14-18) Glucose 138 H (83-115) mg/dL Calcium 7.9 L (8.5-10.1) mg/dL Magnesium 2.7 H (1.8-2.4) mg/dl Troponin I 0.125 H* (0.00-0.056) ng/mL [facility] Results Last 24 Hours: Microbiology 12/21/17 19:40 Aerobic Blood Culture - Preliminary Blood - Venous - Lab Draw NO GROWTH AFTER 1 DAY Anaerobic Blood Culture - Preliminary NO GROWTH AFTER 1 DAY 12/21/17 19:25 Aerobic Blood Culture - Preliminary Blood - Venous NO GROWTH AFTER 1 DAY Anaerobic Blood Culture - Preliminary NO GROWTH AFTER 1 DAY Med Orders - Current: Current Medications Enoxaparin Sodium (Lovenox) 30 mg SUBCUT Q24H [facility] Last Admin: 12/23/17 12:18 Dose: 30 mg Furosemide (Lasix) 20 mg PO DAILY [facility] Last Admin: 12/23/17 09:30 Dose: 20 mg Sodium Chloride (Normal Saline) 1,000 mls @ 100 mls/hr IV ASDIRECTED [facility] Last Admin: 12/23/17 06:27 Dose: 100 mls/hr Lactulose (Cephulac) 20 gm PO BID [facility] Last Admin: 12/23/17 09:29 Dose: 20 gm Levothyroxine Sodium (Levothyroxine) 25 mcg PO DAILY@0600 [facility] Last Admin: 12/23/17 06:26 Dose: 25 mcg Pantoprazole Sodium (Protonix) 40 mg PO ACBREAKFAST [facility] Last Admin: 12/23/17 06:26 Dose: 40 mg Ursodiol 250 Mg 0 each PO BID [facility] Last Admin: 12/23/17 09:30 Dose: 1 each Rifaximin (Xifaxan) 550 mg PO BID [facility] Last Admin: 12/23/17 09:30 Dose: 550 mg Saccharomyces Boulardii (Florastor) 250 mg PO BID [facility] Sucralfate (Carafate) 1 gm PO QID PRN PRN Reason: Abdominal Pain Tramadol HCl (Ultram) 50 mg PO TID PRN PRN Reason: Pain Last Admin: 12/23/17 12:29 Dose: 50 mg Discontinued Medications Enoxaparin Sodium (Lovenox) 30 mg SUBCUT Q24H [facility] Famotidine (Pepcid) 20 mg PO BID [facility] Last Admin: 12/23/17 09:30 Dose: 20 mg Dextrose/Sodium Chloride (Dextrose 5%-Normal Saline) 1,000 mls @ 999 mls/hr IV ASDIRECTED [facility] Last Infusion: 12/21/17 20:35 Dose: 125 mls/hr Dextrose/Sodium Chloride (Dextrose 5%-Normal Saline) 1,000 mls @ 125 mls/hr IV ASDIRECTED [facility] Magnesium Sulfate 4 gm/ Premix 100 mls @ 25 mls/hr IV ONETIME ONE Stop: 12/22/17 15:44 Last Admin: 12/22/17 12:15 Dose: 25 mls/hr Magnesium Sulfate 4 gm/ Premix 100 mls @ 50 mls/hr IV ONETIME ONE Stop: 12/23/17 11:49 Last Admin: 12/23/17 10:35 Dose: 50 mls/hr Ondansetron HCl (Zofran) 4 mg IVPUSH ONETIME ONE Stop: 12/21/17 19:09 Last Admin: 12/21/17 19:38 Dose: 4 mg Saccharomyces Boulardii (Florastor) 250 mg PO DAILY [facility] Last Admin: 12/23/17 09:29 Dose: 250 mg - Exam Quality Assessment: DVT Prophylaxis. No: Urine Catheter General: Alert, Oriented, Cooperative, No Acute Distress HEENT: Pupils Equal, Pupils Reactive, EOMI, Mucous Membr. Moist/[place] Neck: Supple Lungs: Clear to Auscultation, Normal Respiratory Effort Cardiovascular: Regular Rate, Regular Rhythm GI/Abdominal Exam: Normal Bowel Sounds, Soft, Non-Tender, No Organomegaly, No Distention, No Abnormal Bruit, No Mass, Pelvis Stable (Female) Exam: Deferred Back Exam: Normal Inspection Extremities: Normal Inspection, Normal Range of Motion, Non-Tender, No Pedal Edema, Normal Capillary Refill Peripheral Pulses: 3+: Posterior Tibial (L), Posterior Tibial (R), Dorsalis Pedis (L), Dorsalis Pedis (R) Skin: Warm, Dry, Intact Neurological: No New Focal Deficit, Cranial Nerves Intact (grossly) Psy/Mental Status: Alert, Normal Affect, Normal Mood - Problem List & Annotations (1) Altered mental status SNOMED Code(s): 849879862 Code(s): R41.82 - ALTERED MENTAL STATUS, UNSPECIFIED Status: Acute Priority: High Current Visit: Yes Qualifiers: Altered mental status type: stupor Qualified Code(s): R40.1 - Stupor (2) Confusion SNOMED Code(s): 275087352 Code(s): R41.0 - DISORIENTATION, UNSPECIFIED Status: Acute Priority: High Current Visit: Yes - Problem List Review Problem List Initiated/Reviewed/Updated: Yes - My Orders Last 24 Hours: My Active Orders 12/23/17 13:24 Swallow Screen [Nursing Bedside Swallow Screen] [RC] ASDIRECTED 12/23/17 21:00 Saccharomyces Boulardii [Florastor] 250 mg PO BID 12/23/17 Dinner Heart Healthy Diet [DIET] 12/24/17 05:11 BASIC METABOLIC PANEL,BMP [CHEM] AM CBC WITH AUTO DIFF [HEME] AM MAGNESIUM [CHEM] AM TROPONIN I [CHEM] AM 12/25/17 05:11 BASIC METABOLIC PANEL,BMP [CHEM] AM CBC WITH AUTO DIFF [HEME] AM MAGNESIUM [CHEM] AM TROPONIN I [CHEM] AM 12/26/17 05:11 BASIC METABOLIC PANEL,BMP [CHEM] AM CBC WITH AUTO DIFF [HEME] AM MAGNESIUM [CHEM] AM TROPONIN I [CHEM] AM 12/27/17 05:11 BASIC METABOLIC PANEL,BMP [CHEM] AM CBC WITH AUTO DIFF [HEME] AM MAGNESIUM [CHEM] AM TROPONIN I [CHEM] AM - Plan Plan:: I/P: Altered mental status, Iatrogenic * likely narcotic induced * Hold narcotics * Bedside swallow evaluation * Advance diet as tolerated--> Heart Healthy Diet today * Monitor Leukocytopenia * 2.36 today * h/o leukocytopenia in previous visits * Likely d/t IVF and clear liquid diet; advance diet as tolerated * Monitor S/P left hip fracture, not repaired * Left femur fracture 2 months ago * non-weight bearing * wheelchair bound * PT/OT consult Elevated troponin, stable * Troponin 0.119-->0.123-->0.125 * CK-MB <0.2 * 12-lead EKG shows paced rhythm * Denies chest pain or SOB * CXR shows no acute abnormalities * Was elevated at last hospital visit--> 0.135 on 12/06/17 * Appears to have chronic troponin leak Chronic CAD/Hx of AR HCV/Cirrhosis HTN S/P PPM Diabetes Mellitus type 2 CHF Plan: IVF Admit to medical floor on telemetry Home medications Hold narcotics Routine AM labs Advance diet as tolerated PT/OT Address code status, requires clarification DVT prophylaxis: Pts. home PPI GI prophylaxis: SCDs and TEDs - low platelets CM/SW for discharge planning Code status: Full Code; was DNR/DNI back on 12/05/17- daughter clarified that she is a full code PCP: Dr. Trey Vega
[2017-12-23] MEDS: Saccharomyces Boulardii (Probiotic) 250 MG Cap PO SCH (20:24)
[2017-12-24] MEDS: traMADol 50 MG Tab PO PRN ×2 (04:09→11:26)
[2017-12-24] MEDS: Levothyroxine 25 MCG Tab PO SCH (06:49)
[2017-12-24] MEDS: Pantoprazole 40 MG Tab.CR PO SCH (06:49)
[2017-12-24] MEDS: Furosemide 20 MG Tab PO SCH (08:05)
[2017-12-24] MEDS: Saccharomyces Boulardii (Probiotic) 250 MG Cap PO SCH (08:06)
[2017-12-24] MEDS: Rifaximin 550 MG Tab PO SCH (08:06)
[2017-12-24] MEDS: Lactulose Soln 10 GM/15 ML 30 ML UD Cup PO SCH (08:06)
[2017-12-24] MEDS ORDERED: Potassium Chloride 20 MEQ Tab.ER PO SCH (11:00)
[2017-12-24] MEDS: Enoxaparin 30 MG/0.3 ML Syringe SUBCUT SCH (11:27)
--- NOTE | 2017-12-24 16:43 | PCM.DCSUM1 ---
Discharge Summary - Hospital Course HPI Initial Comments: 77-year-old female of [place] descent arrives in the ED per ambulance. She has been exhibiting altered level of consciousness for the last 2-3 days. This morning she's been staring off into space and entered her daughter only once with I don't know. She has broken her LT hip in the last week of September of this year and has been essentially bedbound. Incisions had been made not to proceed with definitive surgical repair. For the last several days she's been taking only small sips of oral liquids such as chicken broth or water. Sometimes chokes. She did vomit about 3:00 this morning of bilious material. There is also some phlegm mixed in it like she had coughed it up. Running a low- grade fever according to the daughter. Patient essentially been bedbound for the last 3 months. At present she is nonverbal. She is mildly warm to palpation. Is obtained from the daughter. No bowel movement for the last 2 days. Daughter has been giving her some Colace orally but no bowel movement has occurred. This is likely due to very little solid food ingestion over the last week. She didn't get any of her medicines today. Of note the patient has type 2 diabetes mellitus. 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 She often gets very confused from her serum ammonia levels are high in the past. She is also receiving morphine immediate release 15 mg every 12 hours and oxycodone tablets intermittently for pain relief. This may be contributing to narcosis. Diagnosis: Stroke: No - Discharge Data Discharge Date: 12/24/17 (ADMIT 12/21/17) Discharge Disposition: Home, W Home Health Agency 06 Condition: Fair - Discharge Diagnosis/Problem(s) (1) Altered mental status SNOMED Code(s): 306847001 ICD Code: R41.82 - ALTERED MENTAL STATUS, UNSPECIFIED Status: Acute Priority: High Qualifiers: Altered mental status type: stupor Qualified Code(s): R40.1 - Stupor (2) Confusion SNOMED Code(s): 921172918 ICD Code: R41.0 - DISORIENTATION, UNSPECIFIED Status: Acute Priority: High - Patient Summary/Data Operative Procedure(s) Performed: none Complications: none Consults: Consultations 12/23/17 16:58 OT Evaluation and Treatment [CONS] Routine PT Evaluation and Treatment [CONS] Routine Labs Pending at D/C: none Recommended Follow-up Testing/Procedures: Follow up with PCP in 7-10 days. Will likely need refill of potassium 40meq Q daily. Planned Operative Procedure(s) after DC: none Hospital Course: I/P: Altered mental status, Iatrogenic- Improved * likely narcotic induced * Hold narcotics * Bedside swallow evaluation * Advance diet as tolerated--> Heart Healthy Diet * Monitor Pancytopenia, Improving * WBC 2.31, RBC 3.7, Plt 73 * h/o pancytopenia in previous visits * Likely d/t IVF and clear liquid diet; advance diet as tolerated * Monitor Hypokalemia * 3.1 * Replenish with Potassium supplement S/P left hip fracture, not repaired * Left femur fracture 2 months ago * non-weight bearing * wheelchair bound * PT/OT consult * CM to discuss discharge planning Elevated troponin, stable * Troponin 0.119-->0.123-->0.125-->0.131 * CK-MB <0.2 * 12-lead EKG shows paced rhythm * Denies chest pain or SOB * CXR shows no acute abnormalities * Was elevated at last hospital visit--> 0.135 on 12/06/17 * Appears to have chronic troponin leak Chronic: CAD/Hx of [place] HCV/Cirrhosis HTN S/P PPM Diabetes Mellitus type 2 CHF Anemia--> Hgb 9.4 Plan: IVF Admit to medical floor on telemetry Home medications Hold narcotics Routine AM labs Advance diet as tolerated PT/OT DVT prophylaxis: Pts home PPI GI prophylaxis: SCDs and TEDs - low platelets CM/SW for discharge planning--> discuss option of hospice Code status: Full Code; was DNR/DNI back on 12/05/17- daughter clarified that she is a full code PCP: 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 Narcotics were held while here and she began to improve. We were able to advance her diet from liquid to solids. She should follow up with PCP in 7-10 days to further evaluate her current medication regimen. Her potassium was also low here at 3.1 and should be rechecked with her PCP on f/u. She will be restarted on her home meds but advised to limit the narcotic use to prevent AMS in the future and to f/u with PCP regarding whether they should be continued or not. She will be d/c'd with a prescription for potassium for 10 days and can get a refill of this from her PCP. Case management discussed Hospice options again with granddaughter at discharge, she was agreeable to this plan but will have to discuss with other family members before final decision is made. - Patient Instructions Diet: Heart Healthy Diet Activity: Bedrest Driving: Do Not Drive Showering/Bathing: May Shower Notify Provider of: Fever, Increased Pain, Nausea and/or Vomiting - Discharge Plan *PRESCRIPTION DRUG MONITORING PROGRAM REVIEWED*: Not Applicable *COPY OF PRESCRIPTION DRUG MONITORING REPORT IN PATIENT RAQUEL: Not Applicable Prescriptions/Med Rec: Potassium Chloride [Klor-Con M20] 40 meq PO DAILY #10 tab.er Home Medications: Home Meds Ergocalciferol (Vitamin D2) [Vitamin D2] 50,000 unit PO WEEKLY 06/23/17 [History ] Furosemide 20 mg PO DAILY 06/23/17 [History] Levothyroxine 25 mcg PO DAILY 06/23/17 [History] Pantoprazole Sodium 40 mg PO ACBREAKFAST 06/23/17 [History] Ranitidine HCl [Ranitidine] 300 mg PO BID 06/23/17 [History] Rifaximin [Xifaxan] 550 mg PO BID 06/23/17 [History] Sucralfate [Carafate] 1 gm PO QID PRN 06/23/17 [History] Ursodiol 250 mg PO BID 06/23/17 [History] Lactulose [Constulose] 20 gm PO BID 12/05/17 [History] L Acidophil/B Lactis/B Longum [Florajen3] 1 cap PO DAILY 12/21/17 [History] Morphine [MS Contin] 15 mg PO Q12H 12/21/17 [History] traMADol [Ultram] 50 mg PO TID PRN 12/21/17 [History] Potassium Chloride [Klor-Con M20] 40 meq PO DAILY #10 tab.er 12/24/17 [Rx] Patient Handouts: Liver Failure, Confusion, Hypokalemia Referrals: Bailey Monteiro, [facility] [Ordering Only Provider] - 01/01/18 11:00 am (Please follow up with Bailey Monteiro on SaturdayJan.01 at 1100. ) - Discharge Summary/Plan Comment DC Time >30 min.: Yes (40) - General Info Date of Service: 12/24/17 Admission Dx/Problem (Free Text: Admission Diagnosis/Problem Admission Diagnosis/Problem Altered mental status Subjective Update: In to see Radha. She is sitting in a chair. She is A+O x2, not oriented to time. She says she is feeling better. She is pivot/transfer x2 d/t previous L hip fracture back in 09/2017, has been bed bound since- will need to continue Home Health. She is incontinent but is urinating. Heart Healthy diet. No other concerns from nursing. She will be d/c'd today with Home Health. Case management to discuss hospice options as well. Functional Status: Reports: Pain Controlled, Tolerating Diet, Urinating - Review of Systems General: Reports: No Symptoms. Denies: Fever, Chills HEENT: Reports: No Symptoms Pulmonary: Reports: No Symptoms. Denies: Shortness of Breath, Cough Cardiovascular: Reports: No Symptoms. Denies: Chest Pain Gastrointestinal: Reports: Diarrhea (improved). Denies: Abdominal Pain, Nausea , Vomiting Genitourinary: Reports: No Symptoms. Denies: Dysuria, Frequency, Burning, Pain , Urgency Musculoskeletal: Reports: No Symptoms Skin: Reports: No Symptoms Neurological: Reports: Confusion (A+O x2) Psychiatric: Reports: Confusion (A+O x 2) - Patient Data Vitals - Most Recent: Last Vital Signs Temp 97.5 F 12/24/17 14:27 Pulse 73 12/24/17 14:27 Resp 14 12/24/17 14:27 BP 108/77 12/24/17 14:27 Pulse Ox 98 12/24/17 14:27 Weight - Most Recent: 137 lb 6.4 oz I&O - Last 24 hours: Intake & Output 12/24/17 12/24/17 12/24/17 06:59 14:59 22:59 Intake Total 600 720 Output Total 100 Balance 500 720 Lab Results - Last 24 hrs: Laboratory Results - last 24 hr 12/24/17 12/24/17 Range/Units 06:08 06:08 WBC 2.31 L* (3.98-10.04) K/mm3 RBC 3.70 L (3.98-5.22) M/mm3 Hgb 9.4 L (11.2-15.7) gm/L Hct 30.4 L (34.1-44.9) % MCV 82.2 (79.4-94.8) fl MCH 25.4 L (25.6-32.2) pg MCHC 30.9 L (32.2-35.5) g/dl RDW Std Deviation 65.3 H (36.4-46.3) fL Plt Count 73 L (182-369) K/mm3 MPV 11.0 (9.4-12.3) fl Neut % (Auto) 47.2 (34.0-71.1) % Lymph % (Auto) 31.6 (19.3-51.7) % [place] % (Auto) 14.3 H (4.7-12.5) % Eos % (Auto) 6.5 H (0.7-5.8) Baso % (Auto) 0.4 (0.1-1.2) % Neut # (Auto) 1.09 L (1.56-6.13) K/mm3 Lymph # (Auto) 0.73 L (1.18-3.74) K/mm3 [place] # (Auto) 0.33 (0.24-0.36) K/mm3 Eos # (Auto) 0.15 (0.04-0.36) K/mm3 Baso # (Auto) 0.01 (0.01-0.08) K/mm3 Manual Slide Review Abnormal smear Sodium 141 (136-145) mEq/L Potassium 3.1 L (3.5-5.1) mEq/L Chloride 110 H (98-107) mEq/L Carbon Dioxide 22 (21-32) mEq/L Anion Gap 12.1 (5-15) BUN 9 (7-18) mg/dL Creatinine 0.8 (0.55-1.02) mg/dL Est Cr Clr Drug Dosing 41.63 mL/min Estimated GFR (MDRD) > 60 (>60) mL/min BUN/Creatinine Ratio 11.3 L (14-18) Glucose 87 (83-115) mg/dL Calcium 8.0 L (8.5-10.1) mg/dL Magnesium 2.0 (1.8-2.4) mg/dl Troponin I 0.131 H* (0.00-0.056) ng/mL [place] Results - Last 24 hrs: Microbiology 12/21/17 19:40 Aerobic Blood Culture - Preliminary Blood - Venous - Lab Draw NO GROWTH AFTER 2 DAYS Anaerobic Blood Culture - Preliminary NO GROWTH AFTER 2 DAYS 12/21/17 19:25 Aerobic Blood Culture - Preliminary Blood - Venous NO GROWTH AFTER 2 DAYS Anaerobic Blood Culture - Preliminary NO GROWTH AFTER 2 DAYS Med Orders - Current: Current Medications Enoxaparin Sodium (Lovenox) 30 mg SUBCUT Q24H [facility] Last Admin: 12/24/17 11:27 Dose: 30 mg Furosemide (Lasix) 20 mg PO DAILY [facility] Last Admin: 12/24/17 08:05 Dose: 20 mg Lactulose (Cephulac) 20 gm PO BID [facility] Last Admin: 12/24/17 08:06 Dose: 20 gm Levothyroxine Sodium (Levothyroxine) 25 mcg PO DAILY@0600 [facility] Last Admin: 12/24/17 06:49 Dose: 25 mcg Pantoprazole Sodium (Protonix) 40 mg PO ACBREAKFAST [facility] Last Admin: 12/24/17 06:49 Dose: 40 mg Ursodiol 250 Mg 0 each PO BID [facility] Last Admin: 12/24/17 08:06 Dose: 1 each Potassium Chloride (Klor-Con M20) 40 meq PO DAILY [facility] Last Admin: 12/24/17 11:26 Dose: 40 meq Rifaximin (Xifaxan) 550 mg PO BID [facility] Last Admin: 12/24/17 08:06 Dose: 550 mg Saccharomyces Boulardii (Florastor) 250 mg PO BID [facility] Last Admin: 12/24/17 08:06 Dose: 250 mg Sucralfate (Carafate) 1 gm PO QID PRN PRN Reason: Abdominal Pain Tramadol HCl (Ultram) 50 mg PO TID PRN PRN Reason: Pain Last Admin: 12/24/17 11:26 Dose: 50 mg Discontinued Medications Enoxaparin Sodium (Lovenox) 30 mg SUBCUT Q24H [facility] Famotidine (Pepcid) 20 mg PO BID [facility] Last Admin: 12/23/17 09:30 Dose: 20 mg Dextrose/Sodium Chloride (Dextrose 5%-Normal Saline) 1,000 mls @ 999 mls/hr IV ASDIRECTED [facility] Last Infusion: 12/21/17 20:35 Dose: 125 mls/hr Dextrose/Sodium Chloride (Dextrose 5%-Normal Saline) 1,000 mls @ 125 mls/hr IV ASDIRECTED CHRISTIE Sodium Chloride (Normal Saline) 1,000 mls @ 100 mls/hr IV ASDIRECTED [facility] Last Admin: 12/23/17 06:27 Dose: 100 mls/hr Magnesium Sulfate 4 gm/ Premix 100 mls @ 25 mls/hr IV ONETIME ONE Stop: 12/22/17 15:44 Last Admin: 12/22/17 12:15 Dose: 25 mls/hr Magnesium Sulfate 4 gm/ Premix 100 mls @ 50 mls/hr IV ONETIME ONE Stop: 12/23/17 11:49 Last Admin: 12/23/17 10:35 Dose: 50 mls/hr Ondansetron HCl (Zofran) 4 mg IVPUSH ONETIME ONE Stop: 12/21/17 19:09 Last Admin: 12/21/17 19:38 Dose: 4 mg Saccharomyces Boulardii (Florastor) 250 mg PO DAILY [facility] Last Admin: 12/23/17 09:29 Dose: 250 mg - Exam Quality Assessment: Reports: DVT Prophylaxis. Denies: Supplemental Oxygen General: Reports: Alert, Cooperative, No Acute Distress. Denies: Oriented ( disoriented to time) HEENT: Reports: Pupils Equal, Pupils Reactive, EOMI, Mucous Membr. Moist/[place] Neck: Reports: Supple Lungs: Reports: Clear to Auscultation, Normal Respiratory Effort Cardiovascular: Reports: Regular Rate, Regular Rhythm, Murmurs GI/Abdominal Exam: Normal Bowel Sounds, Soft, Non-Tender, No Organomegaly, No Distention, No Abnormal Bruit, No Mass, Pelvis Stable (Female) Exam: Deferred Rectal (Female) Exam: Deferred Back Exam: Reports: Normal Inspection, Full Range of Motion Extremities: Normal Inspection, Normal Range of Motion, Non-Tender, No Pedal Edema, Normal Capillary Refill Skin: Reports: Warm, Dry, Intact Neurological: Reports: No New Focal Deficit, Cranial Nerves Intact (grossly) Psy/Mental Status: Reports: Alert, Normal Affect, Normal Mood, Other (Confused)
== END 2017-12-24 17:00 | disposition home health service (06) | DRG 948 ==
LOC: JD.ED 18:51 → JD.MS 20:56
PROVIDERS: ADMIT Internal Medicine Cardiovascular Disease; ATTEND Internal Medicine Cardiovascular Disease
DX: R41.82 Altered mental status, unspecified (principal); D68.4 Acquired coagulation factor deficiency; D61.818 Other pancytopenia; E11.9 Type 2 diabetes mellitus without complications; K74.60 Unspecified cirrhosis of liver; B19.20 Unspecified viral hepatitis C without hepatic coma; R06.89 Other abnormalities of breathing; T40.2X5A Adverse effect of other opioids, initial encounter; I21.4 Non-ST elevation (NSTEMI) myocardial infarction; R13.10 Dysphagia, unspecified; H54.7 Unspecified visual loss; I50.9 Heart failure, unspecified; I25.10 Atherosclerotic heart disease of native coronary artery without angina pectoris; I11.0 Hypertensive heart disease with heart failure; K29.70 Gastritis, unspecified, without bleeding; F32.9 Major depressive disorder, single episode, unspecified; E87.6 Hypokalemia; R74.8 Abnormal levels of other serum enzymes; R19.7 Diarrhea, unspecified; R32 Unspecified urinary incontinence; R64 Cachexia; Z68.26 Body mass index [BMI] 26.0-26.9, adult; Z88.1 Allergy status to other antibiotic agents; R41.0 Disorientation, unspecified; R05 Cough; R50.9 Fever, unspecified; R53.81 Other malaise; R11.2 Nausea with vomiting, unspecified; R53.83 Other fatigue; R06.02 Shortness of breath; R53.1 Weakness; R63.0 Anorexia; Z79.899 Other long term (current) drug therapy; Z95.0 Presence of cardiac pacemaker; Z74.01 Bed confinement status; Z87.440 Personal history of urinary (tract) infections; Z66 Do not resuscitate; Z87.81 Personal history of (healed) traumatic fracture; Z99.3 Dependence on wheelchair
CPT/HCPCS: 36415; 71045; 80053; 81001; 82140; 82550; 82553; 82962; 83605; 83735; 83880; 83930; 84484; 85007; 85027; 85610; 85652; 86140; 87040 ×2; 93005; 96361; 96374; 99285; J2405; J7042; 80048; 85025; 93010; 97110-GP; 97161-GP; 97167-GO; 97530-GO; A9270-GY; J1650; J3475; J7040

== ENCOUNTER 2019-07-03 20:24 | Emergency (ER) | payer MEDICARE, MEDICAID ==
--- NOTE | 2019-07-03 20:35 | EDM.PDOC ---
ED HPI GENERAL MEDICAL PROBLEM - General Chief Complaint: General Stated Complaint: CONFUSSION,BLACK IN STOOL,SOB Time Seen by Provider: 07/03/19 20:34 - History of Present Illness INITIAL COMMENTS - FREE TEXT/NARRATIVE: 79-year-old female presents the emergency room with increased weakness and shortness of breath. This is been any worse over the last several days she is more short of breath and she is developed some black and tarry stools she has had a history of anemia and she has been followed for this and has a endoscopy scheduled in the future. 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 She denies any fevers or chills her stomach is not right but no vomiting she has had some black stools. She denies chest pain or chest pressure but does have some shortness of breath. Left Leg Pain Score (Numeric/FACES): 5 - Related Data Allergies Allergy/AdvReac Type Severity Reaction Status Date / Time levofloxacin [From Levaquin] Allergy Anaphylactic Verified 07/03/19 20:36 Shock Home Meds: Home Meds Furosemide 20 mg PO ASDIRECTED 06/23/17 [History] Levothyroxine 25 mcg PO DAILY 06/23/17 [History] Pantoprazole Sodium 40 mg PO DAILY 06/23/17 [History] Ranitidine HCl [Ranitidine] 300 mg PO BID 06/23/17 [History] Sucralfate [Carafate] 10 ml PO QIDACANDBED 06/23/17 [History] ursodioL [Ursodiol] 250 mg PO BID 06/23/17 [History] Lactulose [Constulose] 30 ml PO ASDIRECTED 12/05/17 [History] Cholecalciferol (Vitamin D3) [Vitamin D] 50,000 unit PO ASDIRECTED 03/22/18 [ History] Magnesium 250 mg PO DAILY 03/22/18 [History] Ondansetron HCl [Zofran] 8 mg PO DAILY 03/22/18 [History] Rifaximin [Xifaxan] 550 mg PO BID 03/22/18 [History] oxyCODONE 10 mg PO Q6H PRN MDD 1 - 2 tabs 03/22/18 [History] fentaNYL [Duragesic] 12 mcg TRDERM Q72H 03/23/18 [History] cephALEXin [Cephalexin] 250 mg PO DAILY 07/03/19 [History] hydroCHLOROthiazide [Hydrochlorothiazide] 25 mg PO DAILY 07/03/19 [History] Past Medical History HEENT History: Reports: Impaired Vision Cardiovascular History: Reports: CAD, Heart Failure, Hypertension, Pacemaker Gastrointestinal History: Reports: Cirrhosis, Gastritis, GI Bleed Genitourinary History: Reports: UTI, Recurrent 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 - Past Surgical History HEENT Surgical History: Reports: None Cardiovascular Surgical History: Reports: None GI Surgical History: Reports: None, Appendectomy Endocrine Surgical History: Reports: None Social & Family History - Family History Family Medical History: Noncontributory - Caffeine Use Caffeine Use: Reports: None - Living Situation & Occupation Living situation: Reports: Occupation: Retired ED ROS GENERAL - Review of Systems Review Of Systems: See Below Constitutional: Reports: No Symptoms HEENT: Reports: No Symptoms Respiratory: Reports: Shortness of Breath Cardiovascular: Denies: Chest Pain Endocrine: Reports: No Symptoms GI/Abdominal: Reports: Black Stool, Diarrhea. Denies: Bloody Stool, Constipation, Nausea, Vomiting : Reports: No Symptoms Musculoskeletal: Reports: No Symptoms Skin: Reports: No Symptoms Neurological: Reports: No Symptoms Psychiatric: Reports: No Symptoms ED EXAM, GENERAL - Physical Exam Exam: See Below Exam Limited By: Language Barrier (However, her granddaughter speaks very good Lithuanian and is doing a good job translating.) General Appearance: Alert. No: No Apparent Distress Eye Exam: Bilateral Eye: Normal Inspection Ears: Normal External Exam, Normal Canal, Hearing Grossly Normal, Normal TMs Nose: Normal Inspection, Normal Mucosa, No Blood Throat/Mouth: Normal Inspection, Normal Lips, Normal Teeth (Any of her original teeth are still remaining no acute changes noted), Normal Gums, Normal Oropharynx, Normal Voice, No Airway Compromise Head: Atraumatic, Normocephalic Neck: Normal Inspection, Supple, Non-Tender, Full Range of Motion. No: Lymphadenopathy (L), Lymphadenopathy (R) Respiratory/Chest: No Respiratory Distress, Lungs Clear, Normal Breath Sounds Cardiovascular: No: Regular Rate, Rhythm, No Edema, No Murmur GI/Abdominal: Normal Bowel Sounds, Soft, Non-Tender Back Exam: Normal Inspection. No: CVA Tenderness (L), CVA Tenderness (R) Extremities: Normal Inspection, Pedal Edema (Trace pedal edema) Neurological: Alert Skin Exam: Warm, Dry, Intact Course - Vital Signs Last Recorded V/S: Last Vital Signs Temp 36.6 C 07/03/19 20:30 Pulse 75 07/04/19 05:42 Resp 16 07/04/19 05:42 BP 136/75 07/04/19 05:42 Pulse Ox 98 07/04/19 05:42 - Orders/Labs/Meds Orders: Active Orders 24 hr Category Date Time Status EKG Documentation Completion [RC] STAT Care 07/03/19 20:52 Active Insert Talavera Catheter [Insert Urinary Catheter] [OM.PC] Care 07/03/19 20:45 Ordered Q24H Urinary Catheter Assessment [RC] ASDIRECTED Care 07/03/19 20:45 Active Chest 1V Frontal [CR] Stat Exams 07/03/19 20:47 Taken CULTURE URINE [RM] Stat Lab 07/03/19 20:54 Received Hemoccult [OCCULT BLOOD DIAGNOSTIC] [OP] Stat Lab 07/03/19 21:15 Ordered Labs: Laboratory Tests 07/03/19 07/03/19 07/03/19 Range/Units 20:54 21:35 21:35 WBC (3.98-10.04) K/mm3 RBC (3.98-5.22) M/mm3 Hgb (11.2-15.7) gm/dl Hct (34.1-44.9) % MCV (79.4-94.8) fl MCH (25.6-32.2) pg MCHC (32.2-35.5) g/dl RDW Std Deviation (36.4-46.3) fL Plt Count (182-369) K/mm3 Neut % (Auto) (34.0-71.1) % Lymph % (Auto) (19.3-51.7) % [place] % (Auto) (4.7-12.5) % Eos % (Auto) (0.7-5.8) Baso % (Auto) (0.1-1.2) % Neut # (Auto) (1.56-6.13) K/mm3 Lymph # (Auto) (1.18-3.74) K/mm3 [place] # (Auto) (0.24-0.36) K/mm3 Eos # (Auto) (0.04-0.36) K/mm3 Baso # (Auto) (0.01-0.08) K/mm3 Manual Slide Review PT 14.9 H (9.7-12.0) SECONDS INR 1.39 D-Dimer, Quantitative (0.19-0.50) mg/L Sodium 141 (136-145) mEq/L Potassium 3.9 (3.5-5.1) mEq/L Chloride 108 H (98-107) mEq/L Carbon Dioxide 24 (21-32) mEq/L Anion Gap 12.9 (5-15) BUN 20 H (7-18) mg/dL Creatinine 1.7 H (0.55-1.02) mg/dL Est Cr Clr Drug Dosing 18.96 mL/min Estimated GFR (MDRD) 29 (>60) mL/min BUN/Creatinine Ratio 11.8 L (14-18) Glucose 159 H (83-115) mg/dL Calcium 8.6 (8.5-10.1) mg/dL Total Bilirubin 0.8 (0.2-1.0) mg/dL GGT 21 (5-55) U/L AST 31 (15-37) U/L ALT 20 (14-59) U/L Alkaline Phosphatase 231 H (46-116) U/L Ammonia (11-32) umol/L Troponin I (0.00-0.056) ng/mL NT-Pro-B Natriuret Pep (0-450) pg/mL Total Protein 6.2 L (6.4-8.2) g/dl Albumin 2.4 L (3.4-5.0) g/dl Globulin 3.8 gm/dL Albumin/Globulin Ratio 0.6 L (1-2) Urine Color Yellow (Yellow) Urine Appearance Slt cloudy H (Clear) Urine pH 5.5 (5.0-8.0) Ur Specific [place] 1.025 (1.005-1.030) Urine Protein Trace H (Negative) Urine Glucose (UA) Negative (Negative) Urine Ketones Trace H (Negative) Urine Occult Blood Negative (Negative) Urine Nitrite Positive H (Negative) Urine Bilirubin 1+ H (Negative) Urine Urobilinogen 0.2 (0.2-1.0) Ur Leukocyte Esterase Negative (Negative) Urine RBC 0-5 (0-5) /hpf Urine WBC 0-5 (0-5) /hpf Ur Squamous Epith Cells 5-10 H (0-5) /hpf Urine Bacteria Many H (FEW) /hpf Urine Mucus Few (FEW) /hpf 07/03/19 07/03/19 07/03/19 Range/Units 21:35 21:35 21:35 WBC 3.50 L (3.98-10.04) K/mm3 RBC 4.24 (3.98-5.22) M/mm3 Hgb 8.8 L D (11.2-15.7) gm/dl Hct 30.8 L (34.1-44.9) % MCV 72.6 L D (79.4-94.8) fl MCH 20.8 L (25.6-32.2) pg MCHC 28.6 L (32.2-35.5) g/dl RDW Std Deviation 57.7 H (36.4-46.3) fL Plt Count 100 L (182-369) K/mm3 Neut % (Auto) 67.1 (34.0-71.1) % Lymph % (Auto) 13.4 L (19.3-51.7) % [place] % (Auto) 18.0 H (4.7-12.5) % Eos % (Auto) 0.3 L (0.7-5.8) Baso % (Auto) 0.9 (0.1-1.2) % Neut # (Auto) 2.35 (1.56-6.13) K/mm3 Lymph # (Auto) 0.47 L (1.18-3.74) K/mm3 [place] # (Auto) 0.63 H (0.24-0.36) K/mm3 Eos # (Auto) 0.01 L (0.04-0.36) K/mm3 Baso # (Auto) 0.03 (0.01-0.08) K/mm3 Manual Slide Review Abnormal smear PT (9.7-12.0) SECONDS INR D-Dimer, Quantitative (0.19-0.50) mg/L Sodium (136-145) mEq/L Potassium (3.5-5.1) mEq/L Chloride (98-107) mEq/L Carbon Dioxide (21-32) mEq/L Anion Gap (5-15) BUN (7-18) mg/dL Creatinine (0.55-1.02) mg/dL Est Cr Clr Drug Dosing mL/min Estimated GFR (MDRD) (>60) mL/min BUN/Creatinine Ratio (14-18) Glucose (83-115) mg/dL Calcium (8.5-10.1) mg/dL Total Bilirubin (0.2-1.0) mg/dL GGT (5-55) U/L AST (15-37) U/L ALT (14-59) U/L Alkaline Phosphatase (46-116) U/L Ammonia 28 (11-32) umol/L Troponin I (0.00-0.056) ng/mL NT-Pro-B Natriuret Pep 329 (0-450) pg/mL Total Protein (6.4-8.2) g/dl Albumin (3.4-5.0) g/dl Globulin gm/dL Albumin/Globulin Ratio (1-2) Urine Color (Yellow) Urine Appearance (Clear) Urine pH (5.0-8.0) Ur Specific [place] (1.005-1.030) Urine Protein (Negative) Urine Glucose (UA) (Negative) Urine Ketones (Negative) Urine Occult Blood (Negative) Urine Nitrite (Negative) Urine Bilirubin (Negative) Urine Urobilinogen (0.2-1.0) Ur Leukocyte Esterase (Negative) Urine RBC (0-5) /hpf Urine WBC (0-5) /hpf Ur Squamous Epith Cells (0-5) /hpf Urine Bacteria (FEW) /hpf Urine Mucus (FEW) /hpf 07/03/19 07/03/19 07/04/19 Range/Units 21:35 23:55 02:50 WBC (3.98-10.04) K/mm3 RBC (3.98-5.22) M/mm3 Hgb (11.2-15.7) gm/dl Hct (34.1-44.9) % MCV (79.4-94.8) fl MCH (25.6-32.2) pg MCHC (32.2-35.5) g/dl RDW Std Deviation (36.4-46.3) fL Plt Count (182-369) K/mm3 Neut % (Auto) (34.0-71.1) % Lymph % (Auto) (19.3-51.7) % [place] % (Auto) (4.7-12.5) % Eos % (Auto) (0.7-5.8) Baso % (Auto) (0.1-1.2) % Neut # (Auto) (1.56-6.13) K/mm3 Lymph # (Auto) (1.18-3.74) K/mm3 [place] # (Auto) (0.24-0.36) K/mm3 Eos # (Auto) (0.04-0.36) K/mm3 Baso # (Auto) (0.01-0.08) K/mm3 Manual Slide Review PT (9.7-12.0) SECONDS INR D-Dimer, Quantitative 1.99 H (0.19-0.50) mg/L Sodium (136-145) mEq/L Potassium (3.5-5.1) mEq/L Chloride (98-107) mEq/L Carbon Dioxide (21-32) mEq/L Anion Gap (5-15) BUN (7-18) mg/dL Creatinine (0.55-1.02) mg/dL Est Cr Clr Drug Dosing mL/min Estimated GFR (MDRD) (>60) mL/min BUN/Creatinine Ratio (14-18) Glucose (83-115) mg/dL Calcium (8.5-10.1) mg/dL Total Bilirubin (0.2-1.0) mg/dL GGT (5-55) U/L AST (15-37) U/L ALT (14-59) U/L Alkaline Phosphatase (46-116) U/L Ammonia (11-32) umol/L Troponin I 0.129 H* 0.134 H* (0.00-0.056) ng/mL NT-Pro-B Natriuret Pep (0-450) pg/mL Total Protein (6.4-8.2) g/dl Albumin (3.4-5.0) g/dl Globulin gm/dL Albumin/Globulin Ratio (1-2) Urine Color (Yellow) Urine Appearance (Clear) Urine pH (5.0-8.0) Ur Specific [place] (1.005-1.030) Urine Protein (Negative) Urine Glucose (UA) (Negative) Urine Ketones (Negative) Urine Occult Blood (Negative) Urine Nitrite (Negative) Urine Bilirubin (Negative) Urine Urobilinogen (0.2-1.0) Ur Leukocyte Esterase (Negative) Urine RBC (0-5) /hpf Urine WBC (0-5) /hpf Ur Squamous Epith Cells (0-5) /hpf Urine Bacteria (FEW) /hpf Urine Mucus (FEW) /hpf 07/04/19 Range/Units 02:50 WBC (3.98-10.04) K/mm3 RBC (3.98-5.22) M/mm3 Hgb (11.2-15.7) gm/dl Hct (34.1-44.9) % MCV (79.4-94.8) fl MCH (25.6-32.2) pg MCHC (32.2-35.5) g/dl RDW Std Deviation (36.4-46.3) fL Plt Count (182-369) K/mm3 Neut % (Auto) (34.0-71.1) % Lymph % (Auto) (19.3-51.7) % [place] % (Auto) (4.7-12.5) % Eos % (Auto) (0.7-5.8) Baso % (Auto) (0.1-1.2) % Neut # (Auto) (1.56-6.13) K/mm3 Lymph # (Auto) (1.18-3.74) K/mm3 [place] # (Auto) (0.24-0.36) K/mm3 Eos # (Auto) (0.04-0.36) K/mm3 Baso # (Auto) (0.01-0.08) K/mm3 Manual Slide Review PT (9.7-12.0) SECONDS INR D-Dimer, Quantitative (0.19-0.50) mg/L Sodium (136-145) mEq/L Potassium (3.5-5.1) mEq/L Chloride (98-107) mEq/L Carbon Dioxide (21-32) mEq/L Anion Gap (5-15) BUN (7-18) mg/dL Creatinine (0.55-1.02) mg/dL Est Cr Clr Drug Dosing mL/min Estimated GFR (MDRD) (>60) mL/min BUN/Creatinine Ratio (14-18) Glucose (83-115) mg/dL Calcium (8.5-10.1) mg/dL Total Bilirubin (0.2-1.0) mg/dL GGT (5-55) U/L AST (15-37) U/L ALT (14-59) U/L Alkaline Phosphatase (46-116) U/L Ammonia (11-32) umol/L Troponin I 0.126 H* (0.00-0.056) ng/mL NT-Pro-B Natriuret Pep (0-450) pg/mL Total Protein (6.4-8.2) g/dl Albumin (3.4-5.0) g/dl Globulin gm/dL Albumin/Globulin Ratio (1-2) Urine Color (Yellow) Urine Appearance (Clear) Urine pH (5.0-8.0) Ur Specific [place] (1.005-1.030) Urine Protein (Negative) Urine Glucose (UA) (Negative) Urine Ketones (Negative) Urine Occult Blood (Negative) Urine Nitrite (Negative) Urine Bilirubin (Negative) Urine Urobilinogen (0.2-1.0) Ur Leukocyte Esterase (Negative) Urine RBC (0-5) /hpf Urine WBC (0-5) /hpf Ur Squamous Epith Cells (0-5) /hpf Urine Bacteria (FEW) /hpf Urine Mucus (FEW) /hpf Meds: Medications Discontinued Medications Generic Name Dose Route Start Last Admin Trade Name Freq PRN Reason Stop Dose Admin Sodium Chloride 500 mls @ 999 mls/hr 07/03/19 23:23 07/04/19 01:42 Normal Saline IV 07/03/19 23:53 999 mls/hr .BOLUS ONE Administration Sodium Chloride 1,000 mls @ 125 mls/hr 07/03/19 23:30 07/04/19 01:42 Normal Saline IV 125 mls/hr ASDIRECTED CHRISTIE Administration - Re-Assessments/Exams Free Text/Narrative Re-Assessment/Exam: 02/01/20 01:[address] Mckeon at [facility] in [place] quite some time ago and with cardiology the recommendation was to check a CTA however with her poor creatinine clearance this is not practical at this time I discussed it again with Dr. Mckeon and his recommendation was just to check a d-dimer it means nothing if it is positive and it is more strain if it is negative her troponin is minimally trending upward we will check another troponin in 3 hours at this time we have absolutely no transportation available to [place]. However Dr. Mckeon is happy to accept the patient when we can arrange transfer. 07/04/19 05:43 We have arranged transfer at [facility] our time I did call one call at [facility] to give them an update her d-dimer was elevated as we expected. Departure - Departure Time of Disposition: 01:00 Disposition: DC/Tfer to [facility] Clinical Impression: Shortness of breath, Elevated troponin I level - Discharge Information Referrals: Diaz Jackson MD [Primary Care Provider] - Forms: ED Department Discharge Sepsis Event Note - Focused Exam Vital Signs: Vital Signs Pulse Resp BP Pulse Ox 07/04/19 05:42 75 16 136/75 98 07/04/19 04:32 75 16 145/75 H 97 Date Exam was Performed: 07/04/19 Time Exam was Performed: 08:44 - My Orders Last 24 Hours: My Active Orders 07/03/19 20:45 Insert Talavera Catheter [Insert Urinary Catheter] [OM.PC] Q24H Urinary Catheter Assessment [RC] ASDIRECTED 07/03/19 20:47 Chest 1V Frontal [CR] Stat 07/03/19 20:52 EKG Documentation Completion [RC] STAT 07/03/19 20:54 CULTURE URINE [RM] Stat 07/03/19 21:15 Hemoccult [OCCULT BLOOD DIAGNOSTIC] [OP] Stat - Assessment/Plan Last 24 Hours: My Active Orders 07/03/19 20:45 Insert Talavera Catheter [Insert Urinary Catheter] [OM.PC] Q24H Urinary Catheter Assessment [RC] ASDIRECTED 07/03/19 20:47 Chest 1V Frontal [CR] Stat 07/03/19 20:52 EKG Documentation Completion [RC] STAT 07/03/19 20:54 CULTURE URINE [RM] Stat 07/03/19 21:15 Hemoccult [OCCULT BLOOD DIAGNOSTIC] [OP] Stat
[2019-07-03] MEDS ORDERED: Sodium Chloride 0.9% 500 ML IV ONE (23:23)
[2019-07-03] MEDS ORDERED: Sodium Chloride 0.9% 1,000 ML IV SCH (23:30)
--- NOTE | 2019-07-04 10:47 | CR ---
Chest: Portable view of the chest was obtained. Comparison: Previous chest x-ray of 2017. Heart size is normal. Tortuous thoracic aorta is seen. Pacemaker is noted. Lungs are clear with no acute parenchymal change. Old healed left proximal humeral fracture is noted. Mild scoliosis is noted within the spine. Bony structures are osteopenic. TIPS stent is noted. Impression: 1. Findings as noted above. 2. Nothing acute is appreciated on portable chest x-ray. Diagnostic code #2 This report was dictated in [place] Standard Time
== END 2019-07-04 06:29 ==
LOC: JD.ED 20:24
DX: R06.02 Shortness of breath (principal); R09.89 Other specified symptoms and signs involving the circulatory and respiratory systems; I11.0 Hypertensive heart disease with heart failure; I50.9 Heart failure, unspecified; I25.10 Atherosclerotic heart disease of native coronary artery without angina pectoris; E11.9 Type 2 diabetes mellitus without complications; F32.9 Major depressive disorder, single episode, unspecified; Z88.1 Allergy status to other antibiotic agents; Z79.899 Other long term (current) drug therapy
CPT/HCPCS: 36415; 71045; 80053; 81001; 82140; 82977; 83880; 84484; 85025; 85379; 85610; 87086; 87088; 87186; 93005; 96360; 96361; 99285; J7030; 93010